=== PATIENT | female | born 1935 | race Caucasian/White ===

== ENCOUNTER 2018-03-26 10:23 | Inpatient (IN) ==
--- NOTE | 2018-03-26 10:32 | Emergency Department Note ---
ED Disposition Clinical Impression: Fall, HTN (hypertension), Femur fracture, right, Hip fracture, Wenckebach phenomenon, Renal insufficiency Disposition: Still a Patient Condition on Discharge: Fair Referrals: Rubén Winkler MD [Primary Care Provider] - - Critical Care Critical Care Time: No Attestation: On , the high probability of a clinically significant, sudden or life threatening deterioration of the following system(s) required my full and direct attention, intervention and personal management. The time I documented below is in addition to time spent performing reported procedures but includes the following listed in this critical care notation. Medical Decision Making - Shahab Inquiry Pt receiving controlled substance: No Shahab was queried for this patient: No Vital Signs: 03/26/18 10:25 03/26/18 11:54 Temperature 98.4 F Temperature Source Oral Pulse Rate [Right Radial] 58 L 67 Respiratory Rate 16 20 Blood Pressure [Right Arm] 146/82 177/63 Blood Pressure Mean [Right Arm] 103 101 Blood Pressure Source [Right Arm] Automatic Cuff Automatic Cuff Blood Pressure Position [Right Arm] Supine Supine 02 Sat by Pulse Oximetry 95 99 Oxygen Delivery Method Room Air Room Air - Lab Data Lab Results 03/26/18 10:15: WBC 8.2, RBC 3.92 L, Hgb 12.0 L, Hct 37.3, MCV 95.1, MCH 30.6, MCHC 32.2, RDW 12.7, Plt Count 196, MPV 11.9 H, Neut % (Auto) 53.0, Lymph % ( Auto) 37.5, [place] % (Auto) 6.6, Eos % (Auto) 2.0, Baso % (Auto) 1.0, Neut # (Auto ) 4.3, Lymph # (Auto) 3.1, [place] # (Auto) 0.5, Eos # (Auto) 0.2, Baso # (Auto) 0.1 03/26/18 10:15: PT 10.7, INR 0.99, APTT 22.2 L 03/26/18 10:15: Sodium 141, Potassium 3.1 L, Chloride 103, Carbon Dioxide 31, Anion Gap 10.1, BUN 27 H, Creatinine 1.25 H, Estimated Creat Clear 36, Estimated GFR 41 L, Est GFR ( Amer) 49 L, Glucose 166 H, Calcium 9.0, Total Bilirubin 0.5, AST 31, ALT 33, Alkaline Phosphatase 111, Total Protein 6.7 , Albumin 2.9 L, Globulin 3.8 H, Albumin/Globulin Ratio 0.8 L 03/26/18 11:55: Urine Color Yellow, Urine Appearance Clear, Urine pH 6.5, Ur Specific [place] 1.020, Urine Protein 2+, Urine Glucose (UA) Negative, Urine Ketones Negative, Urine Blood Trace-i, Urine Nitrate Negative, Urine Bilirubin Negative, Urine Urobilinogen 0.2, Ur Leukocyte Esterase Negative, Urine RBC None , Urine WBC Occasional, Ur Squamous Epith Cells 3-5, Urine Bacteria Trace, Urine Mucus 1+ Result diagrams: 03/26/18 10:15 03/26/18 10:15 Orders (Tests/Meds): ED MEDICATIONS Generic Name Dose Route Start Last Admin Trade Name Freq PRN Reason Stop Dose Admin Sodium Chloride 1,000 mls @ 999 mls/hr 03/26/18 12:30 Sod Chlor 0.9% 1000ml Bag IV 03/26/18 13:30 .Q1H1M JUDY Discontinued Medications Generic Name Dose Route Start Last Admin Trade Name Freq PRN Reason Stop Dose Admin Sodium Chloride 500 mls @ 999 mls/hr 03/26/18 12:30 03/26/18 12:26 Sod Chlor 0.9% 1000ml Bag IV 03/26/18 13:00 Not Given .Q31M JUDY Potassium Chloride 20 meq 03/26/18 12:20 Klor-Con 20meq Tablet PO 03/26/18 12:21 ONCE ONE ORDERS Category Date Time Status EKG Request [ECG Request by /Tram] Stat Y 03/26/18 10:28 Ordered - Radiology Data #1 Image(s): Chest, Pelvis, Femur Image Reviewed: Yes I reviewed the patient's radiology image Preliminary Findings: Abnormal The patient x-ray shows right intertrochanteric and right femur fracture. Chest x-ray: Aortic calcification no acute findings. - ECG Data Tracing #1 Sinus rhythm 64/min with a Mobitz type AV block. I send a copy to Dr. Gayle dictionary editor for a second opnion. Medical Decision Narrative: 1140 discussed the EKG with Dr. Gayle product assembler who agreed with the computer reading of Wenckebach phenomena. [address] Norwood the orthopedic who was described in surgery and asked him to review x-rays, he will and reply back to me. i ATTEMPTED TO ASK DR ARECHIGA FOR AN OPNION BUT DR NORWOOD WAS LICENSED NURSING ASSISTANT. 1300 DR NORWOOD CALLED BACK AND HE WILL BE ABLE TO ATTNED TO HER NEEDS. 1305 i CALLED Peterson who accpted her Fall HPI - General Chief Complaint: PAIN Stated Complaint: Hip pain Time Seen by Provider: 03/26/18 10:25 - History of Present Illness HPI Narrative: 82 years old white female with multiple medical problems she was at home when she fell in the bathroom. She was able to use get up called the EMS upon arrival she had a right lower extremity deformity with palpable distal pulsation. It is suspicious of a right hip fracture. He was in pain she was given 4 mg of morphine in route. The patient is alert oriented 3 she provided history, she denies head neck or lower spine injury. Her main complaint is her right hip pain. MD complaint: fall Onset (ago): minute(s) (Less than 30 minutes prior to arrival.) Fall from: other (He fell from a sitting position in the bathroom.) Place fall occurred: home Loss of consciousness: none Prolonged down time: no Symptoms prior to fall: none Location of injury: buttocks Location of injury - extremities: Right: lower leg Severity: severe Quality: sharp Associated symptoms (after fall): denies - Related Data Home Medications Medication Instructions Recorded Confirmed Amlodipine Besylate [Norvasc 5mg 5 mg PO DAILY 03/26/18 03/26/18 tablet] Atorvastatin Calcium [Atorvastatin 80 mg PO HS 03/26/18 03/26/18 80mg Tab] Clopidogrel Bisulfate [Plavix 75mg 75 mg PO DAILY 03/26/18 03/26/18 Tab] Insulin NPH Hum/Reg Insulin Hm 20 unit SQ BID 03/26/18 03/26/18 [Novolin 70-30 100 Unit/ml Vial] Levothyroxine Sodium 1 mg PO DAILY 03/26/18 03/26/18 [Levothyroxine 75mcg (0.075mg) Tab] Lisinopril [Lisinopril 10mg Tab] 1 mg PO DAILY 03/26/18 03/26/18 Lisinopril/Hydrochlorothiazide 1 mg PO DAILY 03/26/18 03/26/18 [Lisinopril-Hctz 20-12.5 mg Tab] Allergies Allergy/AdvReac Type Severity Reaction Status Date / Time rosuvastatin [From CRESTOR] Allergy Mild Verified 03/26/18 10:33 [facility] History I have reviewed the patient's past medical history: Yes ROS Obtained: Yes All systems reviewed & no additional complaints Physical Exam - General General appearance: alert, in no apparent distress - Head Head exam: atraumatic, normocephalic, normal inspection - Eye Eye exam: Present: normal appearance, PERRL, EOMI. Absent: scleral icterus - ENT ENT exam: Present: normal exam, normal oropharynx, mucous membranes moist, TM's normal bilaterally, normal external ear exam - Neck Neck exam: Present: normal inspection, full ROM, trachea midline. Absent: tenderness, meningismus, lymphadenopathy - Chest Chest inspection: Present: normal inspection, symmetric chest wall rise. Absent : tenderness - Respiratory Respiratory exam: Present: normal lung sounds bilaterally. Absent: respiratory distress - Cardiovascular Cardiovascular exam: Present: regular rate, normal rhythm. Absent: JVD - Abdominal Exam Abdominal exam: Present: soft, normal bowel sounds, other (Stable pelvis without no pulsating masses. Palpable femoral artery bilaterally.). Absent: distention, tenderness, guarding, rebound, rigidity - External exam: Present: normal external exam - Extremities Exam Extremities exam: Present: tenderness (Tenderness over the right hip joint, with external rotation and abduction deformity, palpable femoral and dorsalis pedis arteries. ), normal capillary refill - Back Exam Back exam: Present: normal inspection, other (No lumbar spine tenderness.). Absent: tenderness - Neurological Exam Neurological exam: Present: alert, oriented X3, CN II-XII intact, motor sensory deficit, reflexes normal - Psychiatric Psychiatric exam: Present: normal affect, normal mood, other (Looks in no acute distress. ) - Skin Skin exam: Present: dry, intact, pallor (The patient has generalized pallor and bilateral cool extremities, palpable dorsalis pedis pulsation.) - Lymphatic Lymphatic Findings: no adenopathy
[2018-03-26 10:50] LABS: Basophils # 0.1 K/mm3 (0-0.2); Eosinophils # 0.2 K/mm3 (0.0-0.4); Hematocrit 37.3 % (37.0-47.0); Lymphocytes # 3.1 K/mm3 (0.7-4.5); Lymphocytes % 37.5 K/mm3 (10-50); Mean Corpuscular HGB Conc 32.2 g/dL (31.8-35.4); Mean Corpuscular Hemoglobin 30.6 pg (27.0-31.2); Mean Corpuscular Volume 95.1 fl (81-99); Mean Platelet Volume 11.9 fl (7.4-10.4); Monocytes # 0.5 K/mm3 (0.1-1.0); Monocytes % 6.6 % (1.7-9.3); Neutrophils # 4.3 K/mm3 (1.8-7.8); Platelet Count 196 K/mm3 (142-424); Red Blood Count 3.92 M/mm3 (4.20-5.40); Red Cell Distribution Width 12.7 % (11.5-17.5); White Blood Count 8.2 K/mm3 (4.8-10.8)
[2018-03-26 11:04] LABS: Activated Partial Thrombo Time 22.2 seconds (23.6-34.0); INR 0.99 (0.9-1.1); Prothrombin Time 10.7 seconds (9.4-11.8)
[2018-03-26 11:08] LABS: Albumin Level 2.9 gm/dL (3.4-5.0); Albumin/Globulin Ratio 0.8 (1.1-1.8); Anion Gap 10.1 mEq/L (5-15); Bilirubin,Total 0.5 mg/dL (0.2-1.0); Globulin 3.8 gm/dl (1.3-3.2); Potassium 3.1 mmoL/L (3.5-5.1); Total Protein,Serum 6.7 gm/dL (6.4-8.2)
[2018-03-26 12:02] LABS: Microscopic, Urine URINE MICROSCOPIC (MICROSCOPIC)
[2018-03-26 12:04] LABS: Appearance,Urine CLEAR (Clear); Bilirubin,Urine Negative (Negative); Blood, Urine TRACE-I (Negative); Color,Urine YELLOW (Yellow); Glucose,Urine (UA) Negative (Negative); Ketones,Urine Negative (Negative); Leukocyte Esterase,Urine Negative (Negative); PH,Urine 6.5 (5.0-8.5); Protein,Urine 2+ (Negative); Urobilinogen,Urine 0.2 EU/dl (0.2)
[2018-03-26 12:17] LABS: Bacteria,Urine Trace /lpf; WBC,Urine Occasional #/hpf (0-3)
[2018-03-26 12:18] LABS: Mucus,Urine 1+ /lpf
--- NOTE | 2018-03-26 14:00 | History & Physical Report ---
*Admission Date: 03/26/18 <Edna Virgen 03/26/18 14:08> *Chief complaint: right hip pain <ParamEdna 03/26/18 14:08> *History of present illness: Ms. Bey is an 82 years old white female with a history of type 2 diabetes mellitus, hypertension, hyperlipidemia, hypothyroidism, colon cancer, acute ischemic stroke April 2017, and CKD stage III who was at home when she fell in the bathroom. She was able to call her daughter who notified EMS. Upon presentation to the hospital she was noted to have a right lower extremity deformity with palpable distal pulsation suspicious for right hip fracture. She was given 4mg of Morphine for pain in route. The patient was alert oriented and provided history. She denied head , neck, and lower spine pain. Her main complaint was her right hip pain. Evaluation in the ER confirmed a right hip fracture and she was admitted to [facility] with orthopedic consultation. At the time of this exam patient has been placed in 5# Delgadillo's traction. She is comfortable when still and is somewhat drowsy. <ParamEdna 03/26/18 21:31> [facility] History Medical History: Reports:: Cancer (colon), Cerebrovascular Accident, Diabetes Mellitus Type 2, Hypertension <ParamEdna 03/26/18 14:08> Other Medical History: Reports: Hypothyroidism <VirgenEdna 03/26/18 14:08 > Comment: Right hemicolectomy 08/02/2011 <ParamEdna 03/26/18 14:08> - *Social History Educational Level: Completed High School <ParamEdna 03/26/18 14:08> Smoking Status: Never smoker <ParamEdna 03/26/18 14:08> Alcohol Intake: never <ParamEdna 03/26/18 14:08> - Psychiatric History Expresses thoughts of harming self/others: None <Edna Virgen 03/26/18 14: 08> Suicide Plan Description: No Plan <Edna Virgen 03/26/18 14:08> *Family Hx:: Diabetes <Edna Virgen 03/26/18 14:08> Review of Systems - ENT Denies ear pain, Denies sore throat <Edna Virgen 03/26/18 21:31> - *Cardiovascular Denies chest pain <Edna Virgen - 03/26/18 21:31> - *Respiratory Denies cough, Denies shortness of breath <Edna Virgen - 03/26/18 21:31> - *Musculoskeletal Reports joint pain, Denies back pain, Denies muscle weakness <Edna Virgen - 03/26/18 21:31> - *Neurologic Denies dizziness, Denies fainting <Edna Virgen - 03/26/18 21:31> Comments: sometimes is unsteady on her feet <Edna Virgen - 03/26/18 21:31> Meds Home Medications Medication Instructions Recorded Confirmed Type Amlodipine Besylate [Norvasc 5mg 5 mg PO DAILY 03/26/18 03/26/18 History tablet] Atorvastatin Calcium [Atorvastatin 80 mg PO HS 03/26/18 03/26/18 History 80mg Tab] Clopidogrel Bisulfate [Plavix 75mg 75 mg PO DAILY 03/26/18 03/26/18 History Tab] Insulin NPH Hum/Reg Insulin Hm 20 unit SQ BID 03/26/18 03/26/18 History [Novolin 70-30 100 Unit/ml Vial] Levothyroxine Sodium 1 mg PO DAILY 03/26/18 03/26/18 History [Levothyroxine 75mcg (0.075mg) Tab] Lisinopril [Lisinopril 10mg Tab] 1 mg PO DAILY 03/26/18 03/26/18 History Lisinopril/Hydrochlorothiazide 1 mg PO DAILY 03/26/18 03/26/18 History [Lisinopril-Hctz 20-12.5 mg Tab] <Rubén Winkler - 03/27/18 08:51> Allergies Allergy/AdvReac Type Severity Reaction Status Date / Time rosuvastatin [From CRESTOR] Allergy Mild Verified 03/26/18 10:33 <Rubén Winkler - 03/27/18 08:51> Exam Vital signs and Labs for Last 24 Hours: Temp Pulse Resp BP Pulse Ox 97.9 F 95 H 16 156/55 96 03/27/18 07:53 03/27/18 07:53 03/27/18 07:53 03/27/18 07:53 03/27/18 07:53 Laboratory Results - last 24 hr 03/26/18 10:15: WBC 8.2, RBC 3.92 L, Hgb 12.0 L, Hct 37.3, MCV 95.1, MCH 30.6, MCHC 32.2, RDW 12.7, Plt Count 196, MPV 11.9 H, Neut % (Auto) 53.0, Lymph % ( Auto) 37.5, [place] % (Auto) 6.6, Eos % (Auto) 2.0, Baso % (Auto) 1.0, Neut # (Auto ) 4.3, Lymph # (Auto) 3.1, [place] # (Auto) 0.5, Eos # (Auto) 0.2, Baso # (Auto) 0.1 03/26/18 10:15: PT 10.7, INR 0.99, APTT 22.2 L 03/26/18 10:15: Sodium 141, Potassium 3.1 L, Chloride 103, Carbon Dioxide 31, Anion Gap 10.1, BUN 27 H, Creatinine 1.25 H, Estimated Creat Clear 36, Estimated GFR 41 L, Est GFR ( Amer) 49 L, Glucose 166 H, Calcium 9.0, Total Bilirubin 0.5, AST 31, ALT 33, Alkaline Phosphatase 111, Total Protein 6.7 , Albumin 2.9 L, Globulin 3.8 H, Albumin/Globulin Ratio 0.8 L 03/26/18 11:55: Urine Color Yellow, Urine Appearance Clear, Urine pH 6.5, Ur Specific [place] 1.020, Urine Protein 2+, Urine Glucose (UA) Negative, Urine Ketones Negative, Urine Blood Trace-i, Urine Nitrate Negative, Urine Bilirubin Negative, Urine Urobilinogen 0.2, Ur Leukocyte Esterase Negative, Urine RBC None , Urine WBC Occasional, Ur Squamous Epith Cells 3-5, Urine Bacteria Trace, Urine Mucus 1+ 03/26/18 16:40: Blood Type O Positive, Antibody Screen Negative 03/26/18 17:14: POC Glucose 230 H 03/26/18 20:26: POC Glucose 301 H* 03/27/18 06:00: WBC 13.2 H D, RBC 3.02 L, Hgb 9.5 L D, Hct 29.5 L, MCV 97.8, MCH 31.1, MCHC 31.8, RDW 12.8, Plt Count 153, MPV 12.1 H, Neut % (Auto) 85.1 H, Lymph % (Auto) 9.5 L, [place] % (Auto) 5.3, Eos % (Auto) 0.0 L, Baso % (Auto) 0.1, Neut # (Auto) 11.3 H, Lymph # (Auto) 1.3, [place] # (Auto) 0.7, Eos # (Auto) 0.0, Baso # (Auto) 0.0, Total Counted 100, Neutrophils % (Manual) 87 H, Lymphocytes % (Manual) 9 L, Monocytes % (Manual) 4, Platelet Estimate Normal, RBC Morphology Not Reportable 03/27/18 06:00: Sodium 140, Potassium 4.9 D, Chloride 105, Carbon Dioxide 27, Anion Gap 12.9, BUN 37 H D, Creatinine 1.23 H, Estimated Creat Clear 41, Estimated GFR 42 L, Est GFR ( Amer) 50 L, Glucose 354 H D, Magnesium 1.5 03/27/18 06:05: POC Glucose 315 H* <Rubén Winkler - 03/27/18 08:51> Temp Pulse Resp BP Pulse Ox 97.9 F 58 L 16 159/57 99 03/26/18 13:29 03/26/18 13:29 03/26/18 13:29 03/26/18 13:29 03/26/18 11:54 Laboratory Results - last 24 hr 03/26/18 10:15: WBC 8.2, RBC 3.92 L, Hgb 12.0 L, Hct 37.3, MCV 95.1, MCH 30.6, MCHC 32.2, RDW 12.7, Plt Count 196, MPV 11.9 H, Neut % (Auto) 53.0, Lymph % ( Auto) 37.5, [place] % (Auto) 6.6, Eos % (Auto) 2.0, Baso % (Auto) 1.0, Neut # (Auto ) 4.3, Lymph # (Auto) 3.1, [place] # (Auto) 0.5, Eos # (Auto) 0.2, Baso # (Auto) 0.1 03/26/18 10:15: PT 10.7, INR 0.99, APTT 22.2 L 03/26/18 10:15: Sodium 141, Potassium 3.1 L, Chloride 103, Carbon Dioxide 31, Anion Gap 10.1, BUN 27 H, Creatinine 1.25 H, Estimated Creat Clear 36, Estimated GFR 41 L, Est GFR ( Amer) 49 L, Glucose 166 H, Calcium 9.0, Total Bilirubin 0.5, AST 31, ALT 33, Alkaline Phosphatase 111, Total Protein 6.7 , Albumin 2.9 L, Globulin 3.8 H, Albumin/Globulin Ratio 0.8 L 03/26/18 11:55: Urine Color Yellow, Urine Appearance Clear, Urine pH 6.5, Ur Specific [place] 1.020, Urine Protein 2+, Urine Glucose (UA) Negative, Urine Ketones Negative, Urine Blood Trace-i, Urine Nitrate Negative, Urine Bilirubin Negative, Urine Urobilinogen 0.2, Ur Leukocyte Esterase Negative, Urine RBC None , Urine WBC Occasional, Ur Squamous Epith Cells 3-5, Urine Bacteria Trace, Urine Mucus 1+ <Edna Virgen 03/26/18 21:31> I & O for Last 24 hours: Intake & Output 03/24/18 03/25/18 03/26/18 03/27/18 11:59 11:59 11:59 11:59 Intake Total 1369 / 1369 Output Total 525 / 525 Balance 844 / 844 Weight 150 lb 168 lb 2 oz <Rubén Winkler - 03/27/18 08:51> Intake & Output 03/24/18 03/25/18 03/26/18 03/27/18 11:59 11:59 11:59 11:59 Weight 150 lb <Edna Virgen 03/26/18 14:08> Radiology Reports for the Last 24 Hours: 03/26/2018 x-ray of right hip IMPRESSION: Severely comminuted right intertrochanteric displaced hip fracture 03/26/2018 x-ray of pelvis IMPRESSION: Severely comminuted displaced right intertrochanteric hip fracture 03/26/2018 chest x-ray IMPRESSION: Negative chest, no acute finding <Edna Virgen 03/26/18 14:08> - Constitutional no acute distress <Edna Virgen 03/26/18 21:31> - *Routine HEENT Exam Head: Present: normocephalic <Edna Virgen 05/01/18 21:31> Eye: Present: PERRL. Absent: conjunctival icterus, scleral injection <Virgen ,[facility] 03/26/18 21:31> ENT: Present: mucous membranes moist, oropharynx clear <Virgen,[facility] 21:31> - *Routine Neck Exam Absent: lymphadenopathy, thyromegaly <Virgen,[facility] 03/26/18 21:31> Comments: carotids with radiating murmur [facility] 03/26/18 21:31> - *Routine Respiratory Exam Present: CTA bilaterally <[facility] 03/26/18 21:31> - *Routine Cardiovascular Exam Present: RRR, murmur <[facility] 03/26/18 21:31> - *Routine Abdominal Exam Present: soft, normoactive bowel sounds. Absent: tenderness, distended < [facility] 03/26/18 21:31> - *Routine Extremities Exam Present: pulses intact. Absent: edema, calf tenderness <[facility] 03/26 21:31> Comments: right leg in Delgadillo's traction [facility] 03/[facility] 21:31> - *Routine Neurological Exam Present: alert [facility] 03/26/18 21:31> oriented; drowsy <[facility] 03/26/18 21:31> H&P: Result - Labs Labs: Short CBC 03/26/18 03/27/18 Range/Units 10:15 06:00 WBC 8.2 13.2 H D (4.8-10.8) K/mm3 Hgb 12.0 L 9.5 L D (12.2-16.2) g/dL Hct 37.3 29.5 L (37.0-47.0) % Plt Count 196 153 (142-424) K/mm3 BMP 03/26/18 03/27/18 10:15 06:00 Sodium 141 140 Potassium 3.1 L 4.9 D Chloride 103 105 Carbon Dioxide 31 27 BUN 27 H 37 H D Creatinine 1.25 H 1.23 H Glucose 166 H 354 H D Calcium 9.0 Liver Function 03/26/18 Range/Units 10:15 Total Bilirubin 0.5 (0.2-1.0) mg/dL AST 31 (15-37) U/L ALT 33 (12-78) U/L Alkaline Phosphatase 111 (46-116) U/L Albumin 2.9 L (3.4-5.0) gm/dL Urine 03/26/18 Range/Units 11:55 Urine Color Yellow (Yellow) Urine Appearance Clear (Clear) Urine pH 6.5 (5.0-8.5) Ur Specific [place] 1.020 (1.005-1.030) Urine Protein 2+ (Negative) Urine Glucose (UA) Negative (Negative) <Rubén Winkler - 03/27/18 08:51> Short CBC 03/26/18 Range/Units 10:15 WBC 8.2 (4.8-10.8) K/mm3 Hgb 12.0 L (12.2-16.2) g/dL Hct 37.3 (37.0-47.0) % Plt Count 196 (142-424) K/mm3 BMP 03/26/18 10:15 Sodium 141 Potassium 3.1 L Chloride 103 Carbon Dioxide 31 BUN 27 H Creatinine 1.25 H Glucose 166 H Calcium 9.0 Liver Function 03/26/18 Range/Units 10:15 Total Bilirubin 0.5 (0.2-1.0) mg/dL AST 31 (15-37) U/L ALT 33 (12-78) U/L Alkaline Phosphatase 111 (46-116) U/L Albumin 2.9 L (3.4-5.0) gm/dL Urine 03/26/18 Range/Units 11:55 Urine Color Yellow (Yellow) Urine Appearance Clear (Clear) Urine pH 6.5 (5.0-8.5) Ur Specific [place] 1.020 (1.005-1.030) Urine Protein 2+ (Negative) Urine Glucose (UA) Negative (Negative) <Edna Virgen - 03/26/18 14:08> Assessment and Plan (1) Heart murmur Current visit: Yes Status: Acute Category: Medical Code(s): R01.1 - Cardiac murmur, unspecified <Edna Virgen - 03/26/18 21:07> (1) Closed right hip fracture Current visit: Yes Status: Acute Category: Medical Code(s): S72.001A - Fracture of unspecified part of neck of right femur, initial encounter for closed fracture (2) Fall Current visit: Yes Status: Acute Category: Medical Code(s): W19.XXXA - Unspecified fall, initial encounter (3) Heart murmur Current visit: Yes Status: Chronic Category: Medical Code(s): R01.1 - Cardiac murmur, unspecified (4) HTN (hypertension) Current visit: Yes Status: Chronic Category: Medical Code(s): I10 - Essential (primary) hypertension (5) Renal insufficiency Current visit: Yes Status: Chronic Category: Medical Code(s): N28.9 - Disorder of kidney and ureter, unspecified (6) Type 2 diabetes mellitus Current visit: Yes Status: Chronic Category: Medical Code(s): E11.9 - Type 2 diabetes mellitus without complications <Rubén Winkler - 03/27/18 08:51> - Assessment and plan all Dx Assessment and Plan for all problems:: Saw patient on day of admission, agree with above note. <Rubén Winkler - 03/27/18 08:51> Plan is for surgery tomorrow; will start sliding scale insulin; IVF with KCL have been started; pain management; ECHO <Edna Virgen - 03/26/18 21:31>
--- NOTE | 2018-03-26 15:00 | Consult Report ---
*Admission Date: 03/26/18 *Chief complaint: Pain right hip following a fall *History of present illness: Ms. Bey is a pleasant 82 years old white female admitted to inpatient services under Dr. Winkler earlier today with a diagnosis of right proximal femur fracture. She is lying in bed and appears comfortable. Her family including her daughter are with her in the room. She is giving a history of injury to her right hip following a fall in the bathroom at her home this morning. Following the injury she was able to get up and called EMS; she was brought to the ER where evaluation including x-rays showed a comminuted, displaced intertrochanteric fracture of the right femur with subtrochanteric extension. She was admitted for stabilization and management of the same. She denies any dizziness, headache, chest or neck pain. She also denies loss of consciousness, chest pain and shortness of breath. She lives by herself and is fairly mobile and independent. No history of any previous fractures or surgery. She has past history of type 2 diabetes mellitus, hypertension, hyperlipidemia, hypothyroidism, colon cancer, acute ischemic stroke April 2017, and CKD stage III. I reviewed her past medical history, home medication, social history, family history, lab results and allergies. Review of Systems - Review of Systems Review of systems:: pertinent systems reviewed and negative unless documented below [facility] History I have reviewed the patient's past medical history: Yes Medical History: Reports:: Cancer (colon), Cerebrovascular Accident, Diabetes Mellitus Type 2, Hypertension Other Medical History: Reports: Hypothyroidism - *Social History Educational Level: Completed High School Smoking Status: Never smoker Alcohol Intake: never - Psychiatric History Expresses thoughts of harming self/others: None Suicide Plan Description: No Plan *Family Hx:: Diabetes Meds Home Medications Medication Instructions Recorded Confirmed Type Amlodipine Besylate [Norvasc 5mg 5 mg PO DAILY 03/26/18 03/26/18 History tablet] Atorvastatin Calcium [Atorvastatin 80 mg PO HS 03/26/18 03/26/18 History 80mg Tab] Clopidogrel Bisulfate [Plavix 75mg 75 mg PO DAILY 03/26/18 03/26/18 History Tab] Insulin NPH Hum/Reg Insulin Hm 20 unit SQ BID 03/26/18 03/26/18 History [Novolin 70-30 100 Unit/ml Vial] Levothyroxine Sodium 75 mg PO DAILY 03/26/18 03/27/18 History [Levothyroxine 75mcg (0.075mg) Tab] Lisinopril [Lisinopril 10mg Tab] 10 mg PO DAILY 03/26/18 03/27/18 History Lisinopril/Hydrochlorothiazide 12.5 - 20 mg PO DAILY 03/26/18 03/27/18 History [Lisinopril-Hctz 20-12.5 mg Tab] Allergies Allergy/AdvReac Type Severity Reaction Status Date / Time rosuvastatin [From CRESTOR] Allergy Mild Verified 03/26/18 10:33 Exam Vital signs and Labs for Last 24 Hours: Temp Pulse Resp BP Pulse Ox 98.3 F 70 18 161/72 100 03/26/18 14:24 03/26/18 14:24 03/26/18 14:24 03/26/18 14:24 03/26/18 14:24 Laboratory Results - last 24 hr 03/26/18 10:15: WBC 8.2, RBC 3.92 L, Hgb 12.0 L, Hct 37.3, MCV 95.1, MCH 30.6, MCHC 32.2, RDW 12.7, Plt Count 196, MPV 11.9 H, Neut % (Auto) 53.0, Lymph % ( Auto) 37.5, [place] % (Auto) 6.6, Eos % (Auto) 2.0, Baso % (Auto) 1.0, Neut # (Auto ) 4.3, Lymph # (Auto) 3.1, [place] # (Auto) 0.5, Eos # (Auto) 0.2, Baso # (Auto) 0.1 03/26/18 10:15: PT 10.7, INR 0.99, APTT 22.2 L 03/26/18 10:15: Sodium 141, Potassium 3.1 L, Chloride 103, Carbon Dioxide 31, Anion Gap 10.1, BUN 27 H, Creatinine 1.25 H, Estimated Creat Clear 36, Estimated GFR 41 L, Est GFR ( Amer) 49 L, Glucose 166 H, Calcium 9.0, Total Bilirubin 0.5, AST 31, ALT 33, Alkaline Phosphatase 111, Total Protein 6.7 , Albumin 2.9 L, Globulin 3.8 H, Albumin/Globulin Ratio 0.8 L 03/26/18 11:55: Urine Color Yellow, Urine Appearance Clear, Urine pH 6.5, Ur Specific [place] 1.020, Urine Protein 2+, Urine Glucose (UA) Negative, Urine Ketones Negative, Urine Blood Trace-i, Urine Nitrate Negative, Urine Bilirubin Negative, Urine Urobilinogen 0.2, Ur Leukocyte Esterase Negative, Urine RBC None , Urine WBC Occasional, Ur Squamous Epith Cells 3-5, Urine Bacteria Trace, Urine Mucus 1+ I & O for Last 24 hours: Intake & Output 03/24/18 03/25/18 03/26/18 03/27/18 11:59 11:59 11:59 11:59 Weight 150 lb 168 lb 2 oz - Constitutional mild distress - *Routine HEENT Exam Head: Present: normocephalic, atraumatic Eye: Present: EOMI, PERRL ENT: Present: mucous membranes moist - *Routine Neck Exam Present: supple, full ROM, trachea midline - *Routine Respiratory Exam Present: CTA bilaterally - *Routine Cardiovascular Exam Present: RRR, Normal S1, Normal S2 - *Routine Abdominal Exam Present: soft, normoactive bowel sounds - *Routine Extremities Exam Comments: On examination of lower extremities, the right leg is in Delgadillo's traction; there is shortening of the right leg and the foot is externally rotated. On examination of the right hip, the skin is normal. No rashes or lesions noted. She is tender over the right hip and the proximal third of the femur. Any attempted movements of the right hip are painful. She is nontender over the knee joint. Her calf is soft and nontender. Dorsalis pedis and posterior tibial pulses are 1+ bilaterally. Sensation is grossly intact light touch throughout. She has good range of foot, ankle and toe movements. Examination of her left hip is unremarkable. Imaging: X-rays of her pelvis AP view, right hip and right femur AP and lateral views reviewed along with radiologist report. The x-rays show a comminuted, displaced, unstable intertrochanteric fracture with subtrochanteric extension of the right proximal femur. Hip joint space is fairly well preserved. Her distal femur appears normal except for a degree of osteopenia. No evidence of any lytic or blastic lesions noted. - *Routine Skin Exam Present: intact, warm, normal turgor - *Routine Neurological Exam Present: alert, oriented X3, CN II-XII intact, moving all extremities, normal speech - Routine Psychiatric Exam Present: normal affect, cooperative, good insight, good judgment Results - Labs Result Diagrams: 03/27/18 06:00 03/27/18 06:00 Labs: Abnormal lab results 03/26/18 03/26/18 03/26/18 Range/Units 10:15 10:15 10:15 RBC 3.92 L (4.20-5.40) M/mm3 Hgb 12.0 L (12.2-16.2) g/dL MPV 11.9 H (7.4-10.4) fl APTT 22.2 L (23.6-34.0) seconds Potassium 3.1 L (3.5-5.1) mmoL/L BUN 27 H (7-18) mg/dL Creatinine 1.25 H (0.55-1.02) mg/dL Estimated GFR 41 L (>60) ml/min Est GFR ( Amer) 49 L (>60) ML/MIN Glucose 166 H (74-106) mg/dL Albumin 2.9 L (3.4-5.0) gm/dL Globulin 3.8 H (1.3-3.2) gm/dl Albumin/Globulin Ratio 0.8 L (1.1-1.8) H & H 03/26/18 Range/Units 10:15 Hgb 12.0 L (12.2-16.2) g/dL Hct 37.3 (37.0-47.0) % Coagulation 03/26/18 Range/Units 10:15 INR 0.99 (0.9-1.1) All other labs normal. Assessment and Plan (1) Femur fracture, right Current visit: Yes Status: Acute Qualifiers: Encounter type: initial encounter Femur location: intertrochanteric Fracture type: closed Fracture alignment: displaced Qualified Code(s): S72.141A - Displaced intertrochanteric fracture of right femur, initial encounter for closed fracture Category: Medical Code(s): S72.91XA - Unspecified fracture of right femur, initial encounter for closed fracture I reviewed the clinical and imaging findings with the patient and her family. I have discussed the diagnosis and management options in detail including both nonsurgical and surgical. I have recommended surgical remediation in the form of open reduction and cerclage wiring followed by a femoral nailing (cephalo- medullary nailing). I explained the procedure, risks and benefits, alternatives and the expected postoperative course and outcome. I explained to the patient the type of the fracture and the proposed surgical procedure using copies of the x-rays, pictures from the Internet and drawings. The complications discussed include but are not limited to- infection, bleeding, injury to nerves and blood vessels, DVT, PE, screw cut-out/implant failure, loss of fixation, nonunion, malunion/malrotation, osteonecrosis of the femoral head, femoral shaft fracture, painful hardware, heterotopic ossification, stiffness, weakness , incomplete relief of pain, incomplete return of function or motion and the likely need for further surgery in future, and anesthetic/medical complications including heart attack, stroke, transfusion reaction or . We discussed how any of these events can be devastating. I've explained that the patient is at a significant surgical risk due to her age, cardiac and other comorbidities, and fragility of the bones. Patient seemed to understand and accept these risks. We have discussed nonsurgical alternatives as well. The nonoperative management would essentially consist of prolonged bed rest and traction (skeletal/skin) in bed and pain medication and has exceptionally poor outcome. This could result in nonunion and malunion of the fracture and almost certainly, the patient has a very high risk of decubitus ulcers, UTI, respiratory tract infections, DVT/PE and other complications from being bedridden. I have explained to her that the standard of care for this sort of injuries is surgical throughout the country unless the patient is very ill for surgical management. We also discussed the postoperative course including the rehab and physical therapy required. She lives by herself and likely will need placement in a prison facility for a short time for rehab after surgery. All her questions were answered and she verbalized a good understanding. We will await medical clearance by Dr. Winkler's team and possibly cardiac clearance if needed. The limb was marked appropriately and initialed by me. I have recommended- Type and screen Nothing by mouth after midnight Continue IV fluids Analgesia as needed Consent patient for a cephalo-medullary nailing RIGHT femur ". Order 2 g of IV Ancef for preoperative prophylaxis to start half an hour before surgery I am planning to take her for surgery at the earliest opportunity tomorrow, if cleared for surgery. Continue medical management as per Dr. Winkler. Thank you for the opportunity to take part in the care of this very pleasant patient.
[2018-03-27 06:42] LABS: Basophils % 0.1 % (0.1-2.0); Hematocrit 29.5 % (37.0-47.0); Lymphocytes # 1.3 K/mm3 (0.7-4.5); Lymphocytes % 9.5 K/mm3 (10-50); Mean Corpuscular HGB Conc 31.8 g/dL (31.8-35.4); Mean Corpuscular Hemoglobin 31.1 pg (27.0-31.2); Mean Corpuscular Volume 97.8 fl (81-99); Mean Platelet Volume 12.1 fl (7.4-10.4); Monocytes # 0.7 K/mm3 (0.1-1.0); Monocytes % 5.3 % (1.7-9.3); Neutrophils # 11.3 K/mm3 (1.8-7.8); Neutrophils % 85.1 % (37.0-80.0); Platelet Count 153 K/mm3 (142-424); Red Blood Count 3.02 M/mm3 (4.20-5.40); Red Cell Distribution Width 12.8 % (11.5-17.5); White Blood Count 13.2 K/mm3 (4.8-10.8)
[2018-03-27 06:47] LABS: Anion Gap 12.9 mEq/L (5-15); Potassium 4.9 mmoL/L (3.5-5.1)
[2018-03-27 06:48] LABS: Hemoglobin 9.5 g/dL (12.2-16.2)
[2018-03-27 07:48] LABS: Lymphocytes % 9 % (10-50); Monocytes % 4 % (2-9); Neutrophils % 87 % (42-76); Total Cells Counted 100
--- NOTE | 2018-03-27 07:55 | Pharmacy Consult Notes ---
[facility] Pharmacy VTE Monitoring - Patient Demographics Admission date: 03/26/18 Report Date: 03/27/18 Time: 07:54 Allergies/Adverse Reactions: Patient Allergies rosuvastatin [From CRESTOR] Allergy (Mild, Verified 03/26/18 10:33) Height: 1.7 m Weight: 76.26 kg Patient Problems: Current Active Problems Fall (Acute) HTN (hypertension) (Acute) Femur fracture, right (Acute) Hip fracture (Acute) Wenckebach phenomenon (Acute) Renal insufficiency (Acute) Heart murmur (Acute) - VTE Risk Labs: VTE Related Lab Results Hgb 9.5 g/dL (12.2-16.2) L D 03/27/18 06:00 Hct 29.5 % (37.0-47.0) L 03/27/18 06:00 Plt Count 153 K/mm3 (142-424) 03/27/18 06:00 PT 10.7 seconds (9.4-11.8) 03/26/18 10:15 INR 0.99 (0.9-1.1) 03/26/18 10:15 APTT 22.2 seconds (23.6-34.0) L 03/26/18 10:15 BUN 37 mg/dL (7-18) H D 03/27/18 06:00 Creatinine 1.23 mg/dL (0.55-1.02) H 03/27/18 06:00 Estimated Creat Clear 41 mL/min (0-300) 03/27/18 06:00 VTE Score: 2 VTE Risk Level: Very Low Risk Clinical Trial Participant: No - Prophylaxis VTE Prophylaxis Ordered?: Yes Types of VTE Prophylaxis: TEDS Knee High
--- NOTE | 2018-03-27 08:13 | Progress Note ---
<Charo Avery - Last Filed: 03/27/18 08:10> Internal Medicine - PN: Subj *Date: 03/27/18 *Time: 08:10 Interval history: Patient states she was nauseated but received some antiemetics and feels better at this time. She states her pain is minimal. She was able to sleep last night. Exam Vital signs and Labs for Last 24 Hours: Temp Pulse Resp BP Pulse Ox 97.9 F 95 H 16 156/55 96 03/27/18 07:53 03/27/18 07:53 03/27/18 07:53 03/27/18 07:53 03/27/18 07:53 Laboratory Results - last 24 hr 03/26/18 10:15: WBC 8.2, RBC 3.92 L, Hgb 12.0 L, Hct 37.3, MCV 95.1, MCH 30.6, MCHC 32.2, RDW 12.7, Plt Count 196, MPV 11.9 H, Neut % (Auto) 53.0, Lymph % ( Auto) 37.5, [place] % (Auto) 6.6, Eos % (Auto) 2.0, Baso % (Auto) 1.0, Neut # (Auto ) 4.3, Lymph # (Auto) 3.1, [place] # (Auto) 0.5, Eos # (Auto) 0.2, Baso # (Auto) 0.1 03/26/18 10:15: PT 10.7, INR 0.99, APTT 22.2 L 03/26/18 10:15: Sodium 141, Potassium 3.1 L, Chloride 103, Carbon Dioxide 31, Anion Gap 10.1, BUN 27 H, Creatinine 1.25 H, Estimated Creat Clear 36, Estimated GFR 41 L, Est GFR ( Amer) 49 L, Glucose 166 H, Calcium 9.0, Total Bilirubin 0.5, AST 31, ALT 33, Alkaline Phosphatase 111, Total Protein 6.7 , Albumin 2.9 L, Globulin 3.8 H, Albumin/Globulin Ratio 0.8 L 03/26/18 11:55: Urine Color Yellow, Urine Appearance Clear, Urine pH 6.5, Ur Specific [place] 1.020, Urine Protein 2+, Urine Glucose (UA) Negative, Urine Ketones Negative, Urine Blood Trace-i, Urine Nitrate Negative, Urine Bilirubin Negative, Urine Urobilinogen 0.2, Ur Leukocyte Esterase Negative, Urine RBC None , Urine WBC Occasional, Ur Squamous Epith Cells 3-5, Urine Bacteria Trace, Urine Mucus 1+ 03/26/18 16:40: Blood Type O Positive, Antibody Screen Negative 03/26/18 17:14: POC Glucose 230 H 03/26/18 20:26: POC Glucose 301 H* 03/27/18 06:00: WBC 13.2 H D, RBC 3.02 L, Hgb 9.5 L D, Hct 29.5 L, MCV 97.8, MCH 31.1, MCHC 31.8, RDW 12.8, Plt Count 153, MPV 12.1 H, Neut % (Auto) 85.1 H, Lymph % (Auto) 9.5 L, [place] % (Auto) 5.3, Eos % (Auto) 0.0 L, Baso % (Auto) 0.1, Neut # (Auto) 11.3 H, Lymph # (Auto) 1.3, [place] # (Auto) 0.7, Eos # (Auto) 0.0, Baso # (Auto) 0.0, Total Counted 100, Neutrophils % (Manual) 87 H, Lymphocytes % (Manual) 9 L, Monocytes % (Manual) 4, Platelet Estimate Normal, RBC Morphology Not Reportable 03/27/18 06:00: Sodium 140, Potassium 4.9 D, Chloride 105, Carbon Dioxide 27, Anion Gap 12.9, BUN 37 H D, Creatinine 1.23 H, Estimated Creat Clear 41, Estimated GFR 42 L, Est GFR ( Amer) 50 L, Glucose 354 H D, Magnesium 1.5 03/27/18 06:05: POC Glucose 315 H* I & O for Last 24 hours: Intake & Output 03/24/18 03/25/18 03/26/18 03/27/18 11:59 11:59 11:59 11:59 Intake Total 1369 / 1369 Output Total 525 / 525 Balance 844 / 844 Weight 150 lb 168 lb 2 oz - Constitutional no acute distress - *Routine Respiratory Exam Present: CTA bilaterally - *Routine Cardiovascular Exam Present: RRR - *Routine Abdominal Exam Present: soft, normoactive bowel sounds. Absent: tenderness - *Routine Extremities Exam Absent: edema Comments: Right leg in traction. Assessment and Plan (1) Closed right hip fracture Current visit: Yes Status: Acute Category: Medical Code(s): S72.001A - Fracture of unspecified part of neck of right femur, initial encounter for closed fracture (2) Fall Current visit: Yes Status: Acute Category: Medical Code(s): W19.XXXA - Unspecified fall, initial encounter (3) Heart murmur Current visit: Yes Status: Chronic Category: Medical Code(s): R01.1 - Cardiac murmur, unspecified (4) HTN (hypertension) Current visit: Yes Status: Chronic Category: Medical Code(s): I10 - Essential (primary) hypertension (5) Renal insufficiency Current visit: Yes Status: Chronic Category: Medical Code(s): N28.9 - Disorder of kidney and ureter, unspecified (6) Type 2 diabetes mellitus Current visit: Yes Status: Chronic Category: Medical Code(s): E11.9 - Type 2 diabetes mellitus without complications - Assessment and plan all Dx Assessment and Plan for all problems:: Patient is scheduled for surgery today at 12:30. <Rubén Winkler - Last Filed: 03/27/18 09:17> Internal Medicine - PN: Subj *Date: 03/27/18 *Time: 09:15 Exam Vital signs and Labs for Last 24 Hours: Temp Pulse Resp BP Pulse Ox 97.9 F 95 H 16 156/55 96 03/27/18 07:53 03/27/18 07:53 03/27/18 07:53 03/27/18 07:53 03/27/18 07:53 Laboratory Results - last 24 hr 03/26/18 10:15: WBC 8.2, RBC 3.92 L, Hgb 12.0 L, Hct 37.3, MCV 95.1, MCH 30.6, MCHC 32.2, RDW 12.7, Plt Count 196, MPV 11.9 H, Neut % (Auto) 53.0, Lymph % ( Auto) 37.5, [place] % (Auto) 6.6, Eos % (Auto) 2.0, Baso % (Auto) 1.0, Neut # (Auto ) 4.3, Lymph # (Auto) 3.1, [place] # (Auto) 0.5, Eos # (Auto) 0.2, Baso # (Auto) 0.1 03/26/18 10:15: PT 10.7, INR 0.99, APTT 22.2 L 03/26/18 10:15: Sodium 141, Potassium 3.1 L, Chloride 103, Carbon Dioxide 31, Anion Gap 10.1, BUN 27 H, Creatinine 1.25 H, Estimated Creat Clear 36, Estimated GFR 41 L, Est GFR ( Amer) 49 L, Glucose 166 H, Calcium 9.0, Total Bilirubin 0.5, AST 31, ALT 33, Alkaline Phosphatase 111, Total Protein 6.7 , Albumin 2.9 L, Globulin 3.8 H, Albumin/Globulin Ratio 0.8 L 03/26/18 11:55: Urine Color Yellow, Urine Appearance Clear, Urine pH 6.5, Ur Specific [place] 1.020, Urine Protein 2+, Urine Glucose (UA) Negative, Urine Ketones Negative, Urine Blood Trace-i, Urine Nitrate Negative, Urine Bilirubin Negative, Urine Urobilinogen 0.2, Ur Leukocyte Esterase Negative, Urine RBC None , Urine WBC Occasional, Ur Squamous Epith Cells 3-5, Urine Bacteria Trace, Urine Mucus 1+ 03/26/18 16:40: Blood Type O Positive, Antibody Screen Negative 03/26/18 17:14: POC Glucose 230 H 03/26/18 20:26: POC Glucose 301 H* 03/27/18 06:00: WBC 13.2 H D, RBC 3.02 L, Hgb 9.5 L D, Hct 29.5 L, MCV 97.8, MCH 31.1, MCHC 31.8, RDW 12.8, Plt Count 153, MPV 12.1 H, Neut % (Auto) 85.1 H, Lymph % (Auto) 9.5 L, [place] % (Auto) 5.3, Eos % (Auto) 0.0 L, Baso % (Auto) 0.1, Neut # (Auto) 11.3 H, Lymph # (Auto) 1.3, [place] # (Auto) 0.7, Eos # (Auto) 0.0, Baso # (Auto) 0.0, Total Counted 100, Neutrophils % (Manual) 87 H, Lymphocytes % (Manual) 9 L, Monocytes % (Manual) 4, Platelet Estimate Normal, RBC Morphology Not Reportable 03/27/18 06:00: Sodium 140, Potassium 4.9 D, Chloride 105, Carbon Dioxide 27, Anion Gap 12.9, BUN 37 H D, Creatinine 1.23 H, Estimated Creat Clear 41, Estimated GFR 42 L, Est GFR ( Amer) 50 L, Glucose 354 H D, Magnesium 1.5 03/27/18 06:05: POC Glucose 315 H* I & O for Last 24 hours: Intake & Output 03/24/18 03/25/18 03/26/18 03/27/18 11:59 11:59 11:59 11:59 Intake Total 1369 / 1369 Output Total 525 / 525 Balance 844 / 844 Weight 150 lb 168 lb 2 oz Assessment and Plan (1) Closed right hip fracture Current visit: Yes Status: Acute Category: Medical Code(s): S72.001A - Fracture of unspecified part of neck of right femur, initial encounter for closed fracture (2) Fall Current visit: Yes Status: Acute Category: Medical Code(s): W19.XXXA - Unspecified fall, initial encounter (3) Heart murmur Current visit: Yes Status: Chronic Category: Medical Code(s): R01.1 - Cardiac murmur, unspecified (4) HTN (hypertension) Current visit: Yes Status: Chronic Category: Medical Code(s): I10 - Essential (primary) hypertension (5) Renal insufficiency Current visit: Yes Status: Chronic Category: Medical Code(s): N28.9 - Disorder of kidney and ureter, unspecified (6) Type 2 diabetes mellitus Current visit: Yes Status: Chronic Category: Medical Code(s): E11.9 - Type 2 diabetes mellitus without complications - Assessment and plan all Dx Assessment and Plan for all problems:: Saw patient, concur with above note. Prelim echo report has EF of greater than 55%. OK for surgery today.
--- NOTE | 2018-03-27 16:56 | Operative Note ---
Date of procedure: 03/27/18 Pre-op Diagnosis:: Closed, displaced, comminuted, unstable intertrochanteric fracture with subtrochanteric extension, right hip Post-op Diagnosis:: Closed, displaced, comminuted, unstable intertrochanteric fracture with subtrochanteric extension, right hip Procedure performed:: 1. Open reduction and cerclage wiring, right femur 2. Cephalo-medullary nailing, right femur Surgeon:: Nikko Lynch MD Customer Care Consultant(s):: Dr. Cobb; the assistance of Dr. Cobb was required given the complexity and difficulty of the fracture and procedure. [employer]ER BLASTING:: Other (Félix walker) Anesthesia: GETA Estimated blood loss (mL): 300 Clinical Note:: Patient is an 82-year-old female who suffered a closed, comminuted and displaced , unstable RIGHT intertrochanteric fracture with subtrochanteric extension following a mechanical fall in the bathroom at home. Following evaluation in the emergency room where imaging showed a displaced, comminuted and unstable intertrochanteric fracture of her RIGHT proximal femur with subtrochanteric extension, she was admitted for further management. I have discussed the diagnosis , natural history and management options in detail including both nonsurgical and surgical, with the patient and her family. She was fairly mobile and independent prior to the injury. After a detailed discussion with the patient and her family a decision was made to fix the RIGHT femur fracture internally with cephalo-medullary nailing. Given the fracture pattern and displacement, it is very likely that she would also need an open reduction and cerclage wiring as well prior to the nailing. I have discussed the procedure, alternatives, risks and benefits, postoperative recovery and rehabilitation and the expected outcomes. The complications discussed include but are not limited to DVT, PE, infection, bleeding, injury to nerves and blood vessels, screw cut- out/implant failure, loss of fixation, nonunion, malunion/malrotation, osteonecrosis of the femoral head, femoral shaft fracture, painful hardware, heterotopic ossification, stiffness, weakness, incomplete relief of pain, incomplete return of function or motion and the likely need for further surgery in future, and anesthetic/medical complications including heart attack, stroke, transfusion reaction or . The patient and her family wished to proceed with the surgical remediation. The nonsurgical alternatives were discussed as well. Consent form was reviewed and signed by me. The limb was appropriately marked and initialed by me. Following appropriate preoperative workup and medical clearance, she was brought to the operating room for surgery. The surgery is indicated to reduce and stabilize the fracture, relieve pain and improve function. Operative findings:: Comminuted, displaced and unstable intertrochanteric fracture with subtrochanteric extension of the RIGHT proximal femur as noted on the preoperative x-rays. The fracture could not be reduced satisfactorily by closed manipulation and therefore required an open reduction and cerclage wiring. It was then fixed in a stable fashion with a long cephalo-medullary nail. Bone quality is good. Operative note:: Following appropriate preoperative workup, patient was brought to the operating room and a spinal anesthesia was administered. She was then positioned supine on the fracture table and all the bony prominences were appropriately padded. The RIGHT foot was secured in the footplate and the footplate was attached to the fracture table. The left leg was placed out of the way in a leg moore. When screened under fluoroscopy, we noticed that the fracture is not completely reduced. Therefore, multiple attempts were made to reduce the fracture under fluoroscopic guidance after taking the foot out of the footplate. Given the long spiral, unstable and comminuted fracture configuration, we could not get a satisfactory reduction at this stage. Therefore, we decided to perform an open reduction of the fracture and cerclage wiring to obtain a stable and satisfactory reduction prior to performing the cephalo-medullary nailing. The RIGHT hip and RIGHT thigh were then prepped and draped in the usual sterile fashion. Administration of prophylactic antibiotics was confirmed with the anesthetic team. A preprocedure timeout was performed as per the hospital protocol. A long lateral skin incision was made for the lateral approach to the proximal femur. The incision was deepened through subcutaneous tissue and then the fascia viridiana was incised in line with the skin incision. The vastus lateralis muscle was released from the intermuscular septum gaining access to the fracture site. We noted a long spiral fracture as seen on the preoperative x-rays. The fracture ends were cleared of hematoma. We then reduced the fracture satisfactorily under direct vision and confirmed satisfactory reduction using the fluoroscopic control. The reduction was difficult but in the end we obtained a satisfactory reduction and held with the reduction clamps. We then passed 2 x 2 mm [employer] Accord cerclage cable wire system around the femur at the level of the fracture. The cable wires were then tightened appropriately using the user support analyst making sure the fracture is still appropriately reduced. At this stage the wires were left uncut but subsequently they were cut close to the clamps after completion of the cephalo- medullary nailing of the femur. We then proceeded to perform the cephalo-medullary nailing in the usual fashion. After marking the level of the greater trochanter on the skin under fluoroscopy, a skin incision was made proximal to the greater trochanter in line with the femoral shaft. The dissection was then carried through the subcutaneous tissue. The tensor fascia muscle was split in line with the fibers. This provided access to the tip of the greater trochanter. Under fluoroscopic control the starting guidewire was placed appropriately and advanced into the proximal femur. Initial reaming was performed over this guidewire and the guidewire was exchanged for a long ball-tipped guidewire. The ball-tipped guidewire was passed across the fracture site into the distal fragment under fluoroscopic control. The position of the guidewire was confirmed in both AP and lateral views. Then sequential reaming was performed with flexible reamers over the guidewire up to 12.5 mm reamer. The required nail length was measured. A 125 degree angle, 11.5 mm diameter, long (420 mm) RIGHT Trigen InterTAN nail was selected. The selected nail was attached to the proximal jig and the nail was then inserted into the femur under fluoroscopic guidance. We then seated the nail to the appropriate level and proceeded to introduce the integrated proximal interlocking screws. The lag screw drill sleeve was placed through the proximal jig and advanced onto the bone. The guidepin was placed into the femoral head under fluoroscopic control. After confirming satisfactory placement of the right in both AP and lateral fluoroscopic views the length was measured. A 100 mm lag screw was selected. The compression screw started today was used to make appropriate drill hole for the compression screw. I then placed the antirotation bar into the compression screw drill hole. The lag screw drill was then inserted over the guidepin and treatment with appropriate level. Lag screw was then inserted over the guidewire. I then removed the antirotation bar and placed a 90 mm compression screw and advanced into position. The traction was released and appropriate compression was achieved. The guide pins were removed. After confirming satisfactory placement of the lag screw and compression screw, the set screw was tightened. The guide pin and sheath were then removed. I then proceeded to perform the distal locking through both the dynamic dynamic and static holes- we used the freehand technique for this. After appropriately positioning the C-arm and obtaining round holes on the lateral view, I performed freehand distal locking through both the dynamic and static holes. I used 5 mm x 47.5 mm and 42.5 millimeters screws for distal locking. l the appropriate placement of the distal locking screws was confirmed by fluoroscopic screening in both the AP and lateral views. The reduction and fixation were noted to be satisfactory and stable. Fluoroscopic images were obtained and stored for future reference. The cerclage wires were cut appropriately close to the clamps after confirming the clamps were fully tightened. The wounds were washed out with normal saline and hemostasis was obtained with the diathermy cautery. The wounds were then closed in layers with the 0 Vicryl, 2-0 Vicryl and 4-0 Monocryl subcuticular sutures, Dermabond and Steri-Strips to the skin. Sterile dressings were applied. The RIGHT foot was taken out of the foot moore and the left leg out of the leg moore and placed on the table extension. The limb lengths were noted to be equal and there was no rotational deformity. Dorsalis pedis and posterior tibial pulses were 1+ on both sides. At the end of the procedure, swab, needle and instrument counts were correct according to the scrub team. Patient was then transferred onto the bed. She was then transported to the PACU in a stable condition. Patient tolerated the procedure well and there were no immediate complications. Portable x-rays of RIGHT hip AP and cross-table lateral views and x-rays of the left femur were obtained in the PACU and were noted to be satisfactory. Postoperatively patient will receive 3 further doses of prophylactic antibiotics , DVT prophylaxis as per protocol and IV and oral analgesia as needed. Medical management as per Dr. Winkler's team. She can be mobilized on first postoperative day with a walker, weight bearing on the RIGHT side as tolerated. Implants: [employer] Accord 2 mm cable with clamp 2 [employer] Trigen InterTAN long nailing system- 125 degree angle, 11.5 mm diameter, long (420 mm) RIGHT Trigen InterTAN nail Trigen InterTAN integrated interlocking lag screw-100 mm lag screw and a 95 mm compression screw 5 mm x 47.5 mm and 5 mm x 42.5 mm distal locking screws. (Industry provider relations representative: Cisco Hayes from [employer] [facility] [employer]) Condition: stable Disposition: PACU Specimens:: None Complications:: None
--- NOTE | 2018-03-27 17:07 | Progress Note ---
[facility] Anesthesia Checklist - Patient Identification Patient Identification: Arm Band, Verbal (Name & ) - Structural Data Admitted From: Home Consent for Planned Operative Procedure(s) Verified: Yes Verified Documents: Surgical Consent, History and Physical - NPO Status Verified Time NPO: 00:00 - Additional verifications Patient : No Anesthesia Reactions: No - Airway Assessment C-Spine Mobility Assessed: Yes TMJ Mobility Assessed: Yes Dentition: Good Dentition (Bridges) - Neurological Assessment Level of Consciousness: Awake Hx Seizures: No Numbness or tingling in extremities: No - Anesthesia Plan Anesthesia Risk discussed: Yes Anesthesia Plan: Verified ASA Class: III Anesthesia Type: General [facility] Anesthesia HX I have reviewed the patient's past medical history: Yes Medical History: Reports:: Cancer (colon), Cerebrovascular Accident, Diabetes Mellitus Type 2, Hypertension Other Medical History: Reports: Hypothyroidism *Family Hx:: Diabetes
--- NOTE | 2018-03-27 17:09 | Progress Note ---
[facility] Anesthesia Record Part II Discharge Time: 17:15 Destination: Medical Surgical Department PACU nurse assessment reviewed?: Yes Patient Condition:: Good Anesthesia Complications:: None
--- NOTE | 2018-03-27 17:09 | Progress Note ---
[facility] Anesthesia Record Part I Intake, IV Amount: 1,700 Estimated blood loss (mL): 250 Urine output (mL): 300 Blood Products used (#): none Blood Pressure: 128/44 SaO2: 100 Pulse Rate: 83 Respiratory Rate: 14 Temperature: 98.5 F Patient is:: Drowsy Stable to PACU at:: 17:15
[2018-03-28 06:44] LABS: Basophils % 0.1 % (0.1-2.0); Lymphocytes # 1.2 K/mm3 (0.7-4.5); Lymphocytes % 7.1 K/mm3 (10-50); Mean Corpuscular HGB Conc 31.7 g/dL (31.8-35.4); Mean Corpuscular Hemoglobin 31.4 pg (27.0-31.2); Mean Corpuscular Volume 99.1 fl (81-99); Mean Platelet Volume 12.9 fl (7.4-10.4); Monocytes # 0.8 K/mm3 (0.1-1.0); Monocytes % 5.1 % (1.7-9.3); Neutrophils # 14.2 K/mm3 (1.8-7.8); Neutrophils % 87.7 % (37.0-80.0); Platelet Count 129 K/mm3 (142-424); Red Blood Count 2.33 M/mm3 (4.20-5.40); White Blood Count 16.1 K/mm3 (4.8-10.8)
[2018-03-28 06:50] LABS: Albumin/Globulin Ratio 0.7 (1.1-1.8); Anion Gap 15.3 mEq/L (5-15); Bilirubin,Total 0.3 mg/dL (0.2-1.0); Calcium 8.1 mg/dL (8.5-10.1); Globulin 2.8 gm/dl (1.3-3.2); Potassium 5.3 mmoL/L (3.5-5.1); Total Protein,Serum 4.8 gm/dL (6.4-8.2)
[2018-03-28 06:55] LABS: Hematocrit 23.1 % (37.0-47.0); Hemoglobin 7.3 g/dL (12.2-16.2)
--- NOTE | 2018-03-28 08:28 | Progress Note ---
<Charo Avery - Last Filed: 03/28/18 08:24> Internal Medicine - PN: Subj *Date: 03/28/18 *Time: 08:24 Interval history: Patient states she is feeling well this a.m. She denies any nausea. Her pain is controlled. She states she slept well throughout the night and she is eating this morning. Exam Vital signs and Labs for Last 24 Hours: Temp Pulse Resp BP Pulse Ox 97.4 F L 95 H 18 125/49 98 03/28/18 07:34 03/28/18 07:34 03/28/18 07:34 03/28/18 07:34 03/28/18 07:34 Laboratory Results - last 24 hr 03/26/18 16:40: Crossmatch (AHG) See Detail 03/27/18 11:10: POC Glucose 236 H 03/27/18 12:32: POC Glucose 217 H 03/27/18 17:14: POC Glucose 331 H* 03/27/18 20:24: POC Glucose 362 H* 03/28/18 05:52: POC Glucose 389 H* 03/28/18 06:15: WBC 16.1 H, RBC 2.33 L, Hgb 7.3 L*, Hct 23.1 L*, MCV 99.1 H, MCH 31.4 H, MCHC 31.7 L, RDW 13.0, Plt Count 129 L, MPV 12.9 H, Neut % (Auto) 87.7 H, Lymph % (Auto) 7.1 L, [place] % (Auto) 5.1, Eos % (Auto) 0.0 L, Baso % ( Auto) 0.1, Neut # (Auto) 14.2 H, Lymph # (Auto) 1.2, [place] # (Auto) 0.8, Eos # ( Auto) 0.0, Baso # (Auto) 0.0 03/28/18 06:15: Sodium 139, Potassium 5.3 H, Chloride 105, Carbon Dioxide 24, Anion Gap 15.3 H, BUN 51 H D, Creatinine 1.72 H D, Estimated Creat Clear 29, Estimated GFR 28 L, Est GFR ( Amer) 34 L D, Glucose 409 H*, Calcium 8.1 L , Total Bilirubin 0.3, AST 33, ALT 20 D, Alkaline Phosphatase 66, Total Protein 4.8 L D, Albumin 2.0 L, Globulin 2.8, Albumin/Globulin Ratio 0.7 L I & O for Last 24 hours: Intake & Output 03/25/18 03/26/18 03/27/18 03/28/18 11:59 11:59 11:59 11:59 Intake Total 1369 / 1369 2654 / 2654 Output Total 525 / 525 425 / 425 Balance 844 / 844 2229 / 2229 Weight 150 lb 168 lb 2 oz 168 lb 1.992 oz - Constitutional no acute distress - *Routine Respiratory Exam Present: CTA bilaterally - *Routine Cardiovascular Exam Present: RRR - *Routine Abdominal Exam Present: soft, normoactive bowel sounds. Absent: tenderness - *Routine Extremities Exam Absent: edema - *Routine Skin Exam Comments: dressing in place on the right upper leg Assessment and Plan (1) Femur fracture, right Current visit: Yes Status: Acute Qualifiers: Encounter type: initial encounter Femur location: intertrochanteric Fracture type: closed Fracture alignment: displaced Qualified Code(s): S72.141A - Displaced intertrochanteric fracture of right femur, initial encounter for closed fracture Category: Medical Code(s): S72.91XA - Unspecified fracture of right femur, initial encounter for closed fracture (2) Fall Current visit: Yes Status: Acute Category: Medical Code(s): W19.XXXA - Unspecified fall, initial encounter (3) HTN (hypertension) Current visit: Yes Status: Chronic Category: Medical Code(s): I10 - Essential (primary) hypertension (4) Heart murmur Current visit: Yes Status: Chronic Category: Medical Code(s): R01.1 - Cardiac murmur, unspecified (5) Renal insufficiency Current visit: Yes Status: Chronic Category: Medical Code(s): N28.9 - Disorder of kidney and ureter, unspecified (6) Type 2 diabetes mellitus Current visit: Yes Status: Chronic Category: Medical Code(s): E11.9 - Type 2 diabetes mellitus without complications - Assessment and plan all Dx Assessment and Plan for all problems:: Patient is doing well after her hip repair. Her H&H is low. A transfusion has been ordered by Dr. Lynch. Will continue as per orthopedics. May need to increase sliding scale insulin d/t elevated glucose level. <Rubén Winkler - Last Filed: 03/28/18 09:07> Internal Medicine - PN: Subj *Date: 03/28/18 *Time: 09:06 Exam Vital signs and Labs for Last 24 Hours: Temp Pulse Resp BP Pulse Ox 97.4 F L 95 H 18 125/49 98 03/28/18 07:34 03/28/18 07:34 03/28/18 07:34 03/28/18 07:34 03/28/18 07:34 Laboratory Results - last 24 hr 03/26/18 16:40: Blood Type O Positive, Antibody Screen Negative, Crossmatch (AHG ) See Detail 03/27/18 11:10: POC Glucose 236 H 03/27/18 12:32: POC Glucose 217 H 03/27/18 17:14: POC Glucose 331 H* 03/27/18 20:24: POC Glucose 362 H* 03/28/18 05:52: POC Glucose 389 H* 03/28/18 06:15: WBC 16.1 H, RBC 2.33 L, Hgb 7.3 L*, Hct 23.1 L*, MCV 99.1 H, MCH 31.4 H, MCHC 31.7 L, RDW 13.0, Plt Count 129 L, MPV 12.9 H, Neut % (Auto) 87.7 H, Lymph % (Auto) 7.1 L, [place] % (Auto) 5.1, Eos % (Auto) 0.0 L, Baso % ( Auto) 0.1, Neut # (Auto) 14.2 H, Lymph # (Auto) 1.2, [place] # (Auto) 0.8, Eos # ( Auto) 0.0, Baso # (Auto) 0.0 03/28/18 06:15: Sodium 139, Potassium 5.3 H, Chloride 105, Carbon Dioxide 24, Anion Gap 15.3 H, BUN 51 H D, Creatinine 1.72 H D, Estimated Creat Clear 29, Estimated GFR 28 L, Est GFR ( Amer) 34 L D, Glucose 409 H*, Calcium 8.1 L , Total Bilirubin 0.3, AST 33, ALT 20 D, Alkaline Phosphatase 66, Total Protein 4.8 L D, Albumin 2.0 L, Globulin 2.8, Albumin/Globulin Ratio 0.7 L I & O for Last 24 hours: Intake & Output 03/25/18 03/26/18 03/27/18 03/28/18 11:59 11:59 11:59 11:59 Intake Total 1369 / 1369 2654 / 2654 Output Total 525 / 525 425 / 425 Balance 844 / 844 2229 / 2229 Weight 150 lb 168 lb 2 oz 168 lb 1.992 oz Assessment and Plan (1) Femur fracture, right Current visit: Yes Status: Acute Qualifiers: Encounter type: initial encounter Femur location: intertrochanteric Fracture type: closed Fracture alignment: displaced Qualified Code(s): S72.141A - Displaced intertrochanteric fracture of right femur, initial encounter for closed fracture Category: Medical Code(s): S72.91XA - Unspecified fracture of right femur, initial encounter for closed fracture (2) Fall Current visit: Yes Status: Acute Category: Medical Code(s): W19.XXXA - Unspecified fall, initial encounter (3) HTN (hypertension) Current visit: Yes Status: Chronic Category: Medical Code(s): I10 - Essential (primary) hypertension (4) Heart murmur Current visit: Yes Status: Chronic Category: Medical Code(s): R01.1 - Cardiac murmur, unspecified (5) Renal insufficiency Current visit: Yes Status: Chronic Category: Medical Code(s): N28.9 - Disorder of kidney and ureter, unspecified (6) Type 2 diabetes mellitus Current visit: Yes Status: Chronic Category: Medical Code(s): E11.9 - Type 2 diabetes mellitus without complications - Assessment and plan all Dx Assessment and Plan for all problems:: Saw patient, agree with above note.
[2018-03-28 10:45] LABS: Lymphocytes % 5 % (10-50); Monocytes % 1 % (2-9); Neutrophils % 89 % (42-76); Total Cells Counted 100
[2018-03-28 14:16] LABS: Hematocrit 28.3 % (37.0-47.0)
--- NOTE | 2018-03-28 14:18 | Progress Note ---
Subjective Date: 03/28/18 Time: 12:00 Principal diagnosis: Status post cephalo-medullary nailing, femur PN: Obj Ex Vital signs: Temp Pulse Resp BP Pulse Ox 98.5 F 86 20 150/54 98 03/28/18 13:00 03/28/18 13:00 03/28/18 13:00 03/28/18 13:00 03/28/18 13:00 Narrative: Laboratory Results - last 24 hr 03/26/18 16:40: Blood Type O Positive, Antibody Screen Negative, Crossmatch (AHG ) See Detail 03/27/18 11:10: POC Glucose 236 H 03/27/18 17:14: POC Glucose 331 H* 03/27/18 20:24: POC Glucose 362 H* 03/28/18 05:52: POC Glucose 389 H* 03/28/18 06:15: WBC 16.1 H, RBC 2.33 L, Hgb 7.3 L*, Hct 23.1 L*, MCV 99.1 H, MCH 31.4 H, MCHC 31.7 L, RDW 13.0, Plt Count 129 L, MPV 12.9 H, Neut % (Auto) 87.7 H, Lymph % (Auto) 7.1 L, [place] % (Auto) 5.1, Eos % (Auto) 0.0 L, Baso % ( Auto) 0.1, Neut # (Auto) 14.2 H, Lymph # (Auto) 1.2, [place] # (Auto) 0.8, Eos # ( Auto) 0.0, Baso # (Auto) 0.0, Total Counted 100, Neutrophils % (Manual) 89 H, Band Neutrophils % 3.0, Lymphocytes % (Manual) 5 L, Monocytes % (Manual) 1 L, Metamyelocytes % 2.0 H, Platelet Estimate Slight decrease 03/28/18 06:15: Sodium 139, Potassium 5.3 H, Chloride 105, Carbon Dioxide 24, Anion Gap 15.3 H, BUN 51 H D, Creatinine 1.72 H D, Estimated Creat Clear 29, Estimated GFR 28 L, Est GFR ( Amer) 34 L D, Glucose 409 H*, Calcium 8.1 L , Total Bilirubin 0.3, AST 33, ALT 20 D, Alkaline Phosphatase 66, Total Protein 4.8 L D, Albumin 2.0 L, Globulin 2.8, Albumin/Globulin Ratio 0.7 L 03/28/18 11:38: POC Glucose 358 H* Intake & Output 03/26/18 03/27/18 03/28/18 03/29/18 11:59 11:59 11:59 11:59 Intake Total 1369 / 1369 2654 / 2654 240 / 240 Output Total 525 / 525 425 / 425 Balance 844 / 844 2229 / 2229 240 / 240 Weight 150 lb 168 lb 2 oz 168 lb 1.992 oz Vitals,I&O,and Labs: I reviewed her vital signs, lab results, medication, nursing notes, medical progress notes and also discussed with the nursing staff regarding her progress. Exam General appearance: Alert, awake, no acute distress ENT: Moist mucous membranes Cardiovascular: regular rate & rhythm Respiratory: no respiratory distress, lungs clear to auscultation bilaterally ABD: soft and nontender. Bowel sounds heard over all 4 quadrants. Skin: no gross abnormalities Neuro: Alert and oriented 3; moving all 4 extremities actually On examination of her right lower extremity, the limb lengths are equal. The alignment is neutral. The dressings over the right hip/thigh are clean, dry and intact. Attempted movements of the right hip are painful. Distal neurovascular status is intact. Thigh and calf are soft and nontender. No clinical signs of DVT. - Urinary Catheter Management [place] Cath placed during this visit: yes Urethral indwelling: Yes Reason for continuing: Surgical procedure Insertion date: 03/26/18 Insertion time: 11:51 Progress Note: A&P (1) Femur fracture, right Status: Acute Current Visit: Yes (2) Fall Status: Acute Current Visit: Yes (3) HTN (hypertension) Status: Chronic Current Visit: Yes (4) Heart murmur Status: Chronic Current Visit: Yes (5) Renal insufficiency Status: Chronic Current Visit: Yes (6) Type 2 diabetes mellitus Status: Chronic Current Visit: Yes Assessment and Plan for All Diagnoses:: I reviewed the operative findings and procedure performed with the patient and her family. Her postoperative hemoglobin was low and she is being transfused 2 units of PRBC. Physical therapy are going to come and mobilize her after she completes the blood transfusion. Patient says she is doing well and reports very little pain. She is eating and drinking well. She can be mobilized/ transferred with a walker and with the help of physical therapist weightbearing on the right side as tolerated. Continue PT/OT, pain management with as needed narcotic analgesics. Discontinue IV fluids and discontinue the catheter. Continue DVT prophylaxis and I would recommend DVT prophylaxis for 5 weeks postop- the appropriate agents include Lovenox, Aspirin 325 mg, Xarelto ( Rivaroxaban), Eliquis (apixaban) and Coumadin. Care management to look into discharge planning. Continue medical management as per Dr. Winkler's team.
[2018-03-28 14:28] LABS: Hemoglobin 9.4 g/dL (12.2-16.2)
--- NOTE | 2018-03-29 08:21 | Progress Note ---
<Charo Avery - Last Filed: 03/29/18 08:19> Internal Medicine - PN: Subj *Date: 03/29/18 *Time: 08:19 Interval history: Patient states she is feeling well this morning. She was up in a chair and worked with physical therapy yesterday. She states her pain is under control. She slept well last night and ate well this morning. Exam Vital signs and Labs for Last 24 Hours: Temp Pulse Resp BP Pulse Ox 97.4 F L 83 16 127/42 100 03/29/18 08:00 03/29/18 08:00 03/29/18 08:00 03/29/18 08:00 03/29/18 08:00 Laboratory Results - last 24 hr 03/26/18 16:40: Blood Type O Positive, Antibody Screen Negative, Crossmatch (AHG ) See Detail 03/28/18 06:15: Total Counted 100, Neutrophils % (Manual) 89 H, Band Neutrophils % 3.0, Lymphocytes % (Manual) 5 L, Monocytes % (Manual) 1 L, Metamyelocytes % 2.0 H, Platelet Estimate Slight decrease 03/28/18 11:38: POC Glucose 358 H* 03/28/18 14:07: Hgb 9.4 L D, Hct 28.3 L 03/28/18 16:24: POC Glucose 262 H 03/28/18 20:28: POC Glucose 137 H 03/29/18 05:54: POC Glucose 223 H I & O for Last 24 hours: Intake & Output 03/26/18 03/27/18 03/28/18 03/29/18 11:59 11:59 11:59 11:59 Intake Total 1369 / 1369 2654 / 2654 480 / 480 Output Total 525 / 525 425 / 425 275 / 275 Balance 844 / 844 2229 / 2229 205 / 205 Weight 150 lb 168 lb 2 oz 168 lb 1.992 oz - Constitutional no acute distress - *Routine Respiratory Exam Present: rales (left base). Absent: wheezes - *Routine Cardiovascular Exam Present: RRR - *Routine Abdominal Exam Present: soft, normoactive bowel sounds. Absent: tenderness - *Routine Extremities Exam Absent: edema - *Routine Skin Exam Comments: dressing in place on right hip Assessment and Plan (1) Femur fracture, right Current visit: Yes Status: Acute Qualifiers: Encounter type: initial encounter Femur location: intertrochanteric Fracture type: closed Fracture alignment: displaced Qualified Code(s): S72.141A - Displaced intertrochanteric fracture of right femur, initial encounter for closed fracture Category: Medical Code(s): S72.91XA - Unspecified fracture of right femur, initial encounter for closed fracture (2) Fall Current visit: Yes Status: Acute Category: Medical Code(s): W19.XXXA - Unspecified fall, initial encounter (3) HTN (hypertension) Current visit: Yes Status: Chronic Category: Medical Code(s): I10 - Essential (primary) hypertension (4) Heart murmur Current visit: Yes Status: Chronic Category: Medical Code(s): R01.1 - Cardiac murmur, unspecified (5) Renal insufficiency Current visit: Yes Status: Chronic Category: Medical Code(s): N28.9 - Disorder of kidney and ureter, unspecified (6) Type 2 diabetes mellitus Current visit: Yes Status: Chronic Category: Medical Code(s): E11.9 - Type 2 diabetes mellitus without complications (7) Rales 1/[address] up posterior chest wall on left side Current visit: Yes Status: Acute Category: Medical Code(s): R09.89 - Other specified symptoms and signs involving the circulatory and respiratory systems - Assessment and plan all Dx Assessment and Plan for all problems:: Patient is improving. Her H&H has improved after transfusion. She does have some crackles in her left base. Will get a chest x-ray today. <Rubén Winkler - Last Filed: 03/29/18 08:45> Internal Medicine - PN: Subj *Date: 03/29/18 *Time: 08:44 Exam Vital signs and Labs for Last 24 Hours: Temp Pulse Resp BP Pulse Ox 97.4 F L 83 16 127/42 100 03/29/18 08:00 03/29/18 08:00 03/29/18 08:00 03/29/18 08:00 03/29/18 08:00 Laboratory Results - last 24 hr 03/26/18 16:40: Blood Type O Positive, Antibody Screen Negative, Crossmatch (AHG ) See Detail 03/28/18 06:15: Total Counted 100, Neutrophils % (Manual) 89 H, Band Neutrophils % 3.0, Lymphocytes % (Manual) 5 L, Monocytes % (Manual) 1 L, Metamyelocytes % 2.0 H, Platelet Estimate Slight decrease 03/28/18 11:38: POC Glucose 358 H* 03/28/18 14:07: Hgb 9.4 L D, Hct 28.3 L 03/28/18 16:24: POC Glucose 262 H 03/28/18 20:28: POC Glucose 137 H 03/29/18 05:54: POC Glucose 223 H I & O for Last 24 hours: Intake & Output 03/26/18 03/27/18 03/28/18 03/29/18 11:59 11:59 11:59 11:59 Intake Total 1369 / 1369 2654 / 2654 480 / 480 Output Total 525 / 525 425 / 425 275 / 275 Balance 844 / 844 2229 / 2229 205 / 205 Weight 150 lb 168 lb 2 oz 168 lb 1.992 oz Assessment and Plan (1) Femur fracture, right Current visit: Yes Status: Acute Qualifiers: Encounter type: initial encounter Femur location: intertrochanteric Fracture type: closed Fracture alignment: displaced Qualified Code(s): S72.141A - Displaced intertrochanteric fracture of right femur, initial encounter for closed fracture Category: Medical Code(s): S72.91XA - Unspecified fracture of right femur, initial encounter for closed fracture (2) Fall Current visit: Yes Status: Acute Category: Medical Code(s): W19.XXXA - Unspecified fall, initial encounter (3) HTN (hypertension) Current visit: Yes Status: Chronic Category: Medical Code(s): I10 - Essential (primary) hypertension (4) Heart murmur Current visit: Yes Status: Chronic Category: Medical Code(s): R01.1 - Cardiac murmur, unspecified (5) Renal insufficiency Current visit: Yes Status: Chronic Category: Medical Code(s): N28.9 - Disorder of kidney and ureter, unspecified (6) Type 2 diabetes mellitus Current visit: Yes Status: Chronic Category: Medical Code(s): E11.9 - Type 2 diabetes mellitus without complications (7) Rales 1/[address] up posterior chest wall on left side Current visit: Yes Status: Acute Category: Medical Code(s): R09.89 - Other specified symptoms and signs involving the circulatory and respiratory systems - Assessment and plan all Dx Assessment and Plan for all problems:: Saw patient, concur with above note. Discharge planning ongoing.
--- NOTE | 2018-03-29 12:01 | Progress Note ---
Subjective Date: 03/29/18 Time: 08:30 Principal diagnosis: Status post cephalo-medullary nailing, right femur Interval history: Patient is status post open reduction, cerclage wiring and cephalo-medullary nailing right femur post op day # 2. She is lying down in bed. She says she is feeling a lot better today and says her pain is well controlled with medication. She also states that she is eating and drinking well. No history of any fevers, chills or rigors. No history of any nausea, vomiting, chest pain or SOB. She says she slept well last night. She was up in a chair and worked with physical therapy yesterday. She states her pain is under control. PN: Obj Ex Vital signs: Temp Pulse Resp BP Pulse Ox 97.4 F L 83 16 127/42 100 03/29/18 08:00 03/29/18 09:30 03/29/18 09:30 03/29/18 08:00 03/29/18 09:30 Narrative: Laboratory Last Values WBC 16.1 K/mm3 (4.8-10.8) H 03/28/18 06:15 RBC 2.33 M/mm3 (4.20-5.40) L 03/28/18 06:15 Hgb 9.4 g/dL (12.2-16.2) L D 03/28/18 14:07 Hct 28.3 % (37.0-47.0) L 03/28/18 14:07 MCV 99.1 fl (81-99) H 03/28/18 06:15 MCH 31.4 pg (27.0-31.2) H 03/28/18 06:15 MCHC 31.7 g/dL (31.8-35.4) L 03/28/18 06:15 RDW 13.0 % (11.5-17.5) 03/28/18 06:15 Plt Count 129 K/mm3 (142-424) L 03/28/18 06:15 MPV 12.9 fl (7.4-10.4) H 03/28/18 06:15 Neut % (Auto) 87.7 % (37.0-80.0) H 03/28/18 06:15 Lymph % (Auto) 7.1 K/mm3 (10-50) L 03/28/18 06:15 [place] % (Auto) 5.1 % (1.7-9.3) 03/28/18 06:15 Eos % (Auto) 0.0 % (0.1-12.0) L 03/28/18 06:15 Baso % (Auto) 0.1 % (0.1-2.0) 03/28/18 06:15 Neut # (Auto) 14.2 K/mm3 (1.8-7.8) H 03/28/18 06:15 Lymph # (Auto) 1.2 K/mm3 (0.7-4.5) 03/28/18 06:15 [place] # (Auto) 0.8 K/mm3 (0.1-1.0) 03/28/18 06:15 Eos # (Auto) 0.0 K/mm3 (0.0-0.4) 03/28/18 06:15 Baso # (Auto) 0.0 K/mm3 (0-0.2) 03/28/18 06:15 Total Counted 100 03/28/18 06:15 Neutrophils % (Manual) 89 % (42-76) H 03/28/18 06:15 Band Neutrophils % 3.0 (0-8) 03/28/18 06:15 Lymphocytes % (Manual) 5 % (10-50) L 03/28/18 06:15 Monocytes % (Manual) 1 % (2-9) L 03/28/18 06:15 Metamyelocytes % 2.0 (0-1) H 03/28/18 06:15 Platelet Estimate Slight decrease 03/28/18 06:15 RBC Morphology Not Reportable 03/27/18 06:00 PT 10.7 seconds (9.4-11.8) 03/26/18 10:15 INR 0.99 (0.9-1.1) 03/26/18 10:15 APTT 22.2 seconds (23.6-34.0) L 03/26/18 10:15 Sodium 139 mmol/L (136-145) 03/28/18 06:15 Potassium 5.3 mmoL/L (3.5-5.1) H 03/28/18 06:15 Chloride 105 mmol/L (98-107) 03/28/18 06:15 Carbon Dioxide 24 mmol/L (21.0-32.0) 03/28/18 06:15 Anion Gap 15.3 mEq/L (5-15) H 03/28/18 06:15 BUN 51 mg/dL (7-18) H D 03/28/18 06:15 Creatinine 1.72 mg/dL (0.55-1.02) H D 03/28/18 06:15 Estimated Creat Clear 29 mL/min (0-300) 03/28/18 06:15 Estimated GFR 28 ml/min (>60) L 03/28/18 06:15 Est GFR ( Amer) 34 ML/MIN (>60) L D 03/28/18 06:15 Glucose 409 mg/dL (74-106) H* 03/28/18 06:15 POC Glucose 223 (70-110) H 03/29/18 05:54 Calcium 8.1 mg/dL (8.5-10.1) L 03/28/18 06:15 Magnesium 1.5 mg/dL (1.4-2.2) 03/27/18 06:00 Total Bilirubin 0.3 mg/dL (0.2-1.0) 03/28/18 06:15 AST 33 U/L (15-37) 03/28/18 06:15 ALT 20 U/L (12-78) D 03/28/18 06:15 Alkaline Phosphatase 66 U/L (46-116) 03/28/18 06:15 Total Protein 4.8 gm/dL (6.4-8.2) L D 03/28/18 06:15 Albumin 2.0 gm/dL (3.4-5.0) L 03/28/18 06:15 Globulin 2.8 gm/dl (1.3-3.2) 03/28/18 06:15 Albumin/Globulin Ratio 0.7 (1.1-1.8) L 03/28/18 06:15 Urine Color Yellow (Yellow) 03/26/18 11:55 Urine Appearance Clear (Clear) 03/26/18 11:55 Urine pH 6.5 (5.0-8.5) 03/26/18 11:55 Ur Specific [place] 1.020 (1.005-1.030) 03/26/18 11:55 Urine Protein 2+ (Negative) 03/26/18 11:55 Urine Glucose (UA) Negative (Negative) 03/26/18 11:55 Urine Ketones Negative (Negative) 03/26/18 11:55 Urine Blood Trace-i (Negative) 03/26/18 11:55 Urine Nitrate Negative (Negative) 03/26/18 11:55 Urine Bilirubin Negative (Negative) 03/26/18 11:55 Urine Urobilinogen 0.2 EU/dl (0.2) 03/26/18 11:55 Ur Leukocyte Esterase Negative (Negative) 03/26/18 11:55 Urine RBC None #/hpf (0-3) 03/26/18 11:55 Urine WBC Occasional #/hpf (0-3) 03/26/18 11:55 Ur Squamous Epith Cells 3-5 #/hpf (0-5) 03/26/18 11:55 Urine Bacteria Trace /lpf (NONE) 03/26/18 11:55 Urine Mucus 1+ /lpf (None) 03/26/18 11:55 Blood Type O Positive 03/26/18 16:40 Antibody Screen Negative 03/26/18 16:40 Crossmatch (AHG) See Detail 03/26/18 16:40 Objective: Vitals,I&O,and Labs: I reviewed her vital signs, lab results, medication, nursing notes, medical progress notes and also discussed with the nursing staff regarding her progress. Exam General appearance: Alert, awake, no acute distress Cardiovascular: regular rate & rhythm Respiratory: no respiratory distress, lungs clear to auscultation bilaterally ABD: soft and nontender. Bowel sounds heard over all 4 quadrants. Skin: no gross abnormalities Neuro: Alert and oriented 3 On examination of her right lower extremity, the limb lengths are equal. The alignment is neutral. The dressings over the right hip/femur are clean, dry and intact. The dressings were changed by me and all the 3 surgical incisions look dry, clean and healthy. Attempted movements of the right hip are painful. Distal neurovascular status is intact. Thigh and calf are soft and nontender. No clinical signs of DVT. - Urinary Catheter Management [place] Cath placed during this visit: yes Urethral indwelling: No Insertion date: 03/26/18 Insertion time: 11:51 Progress Note: A&P (1) Femur fracture, right Status: Acute Current Visit: Yes (2) Fall Status: Acute Current Visit: Yes (3) HTN (hypertension) Status: Chronic Current Visit: Yes (4) Heart murmur Status: Chronic Current Visit: Yes (5) Renal insufficiency Status: Chronic Current Visit: Yes (6) Type 2 diabetes mellitus Status: Chronic Current Visit: Yes (7) Rales 1/[address] up posterior chest wall on left side Status: Acute Current Visit: Yes Assessment and Plan for All Diagnoses:: I reviewed the findings and progress with the patient and family. The dressings were changed and the incisions are healthy. Continue PT/OT, pain management with narcotic analgesics. From an orthopedic standpoint, she can be discharged/ transferred to a [place] [facility] facility if medically appropriate. Recommend DVT prophylaxis for 5 weeks postop- the appropriate agents include Lovenox, Aspirin 325 mg, Xarelto (Rivaroxaban), Eliquis (apixaban) and Coumadin. Follow-up in my office in 2 weeks time with check x-ray. Please feel free to call our office at [phone] for any orthopaedic questions. Medical management as per Dr. Winkler's team.
[2018-03-30 06:18] LABS: Basophils % 0.1 % (0.1-2.0); Eosinophils % 0.3 % (0.1-12.0); Hematocrit 25.2 % (37.0-47.0); Hemoglobin 8.4 g/dL (12.2-16.2); Lymphocytes # 1.8 K/mm3 (0.7-4.5); Mean Corpuscular HGB Conc 33.3 g/dL (31.8-35.4); Mean Corpuscular Volume 93.2 fl (81-99); Monocytes # 0.8 K/mm3 (0.1-1.0); Monocytes % 7.2 % (1.7-9.3); Neutrophils # 9.1 K/mm3 (1.8-7.8); Neutrophils % 77.4 % (37.0-80.0); Platelet Count 106 K/mm3 (142-424); Red Cell Distribution Width 13.8 % (11.5-17.5); White Blood Count 11.7 K/mm3 (4.8-10.8)
[2018-03-30 06:41] LABS: Anion Gap 8.7 mEq/L (5-15); Potassium 4.7 mmoL/L (3.5-5.1)
--- NOTE | 2018-03-30 08:39 | Progress Note ---
<Charo Avery - Last Filed: 03/30/18 08:36> Internal Medicine - PN: Subj *Date: 03/30/18 *Time: 08:36 Interval history: Patient states she is feeling well today. Her leg is sore but her pain is controlled. She was able to get up and work with therapy yesterday. Denies any cough or shortness of air. Exam Vital signs and Labs for Last 24 Hours: Temp Pulse Resp BP Pulse Ox 98.9 F 69 16 169/55 90 L 03/30/18 08:00 03/30/18 08:00 03/30/18 08:00 03/30/18 08:00 03/30/18 08:00 Laboratory Results - last 24 hr 03/29/18 11:19: POC Glucose 248 H 03/29/18 16:56: POC Glucose 271 H 03/29/18 20:14: POC Glucose 214 H 03/30/18 05:40: WBC 11.7 H D, RBC 2.70 L, Hgb 8.4 L, Hct 25.2 L, MCV 93.2, MCH 31.0, MCHC 33.3, RDW 13.8, Plt Count 106 L, MPV 12.0 H, Neut % (Auto) 77.4, Lymph % (Auto) 15.0, [place] % (Auto) 7.2, Eos % (Auto) 0.3, Baso % (Auto) 0.1, Neut # (Auto) 9.1 H, Lymph # (Auto) 1.8, [place] # (Auto) 0.8, Eos # (Auto) 0.0, Baso # (Auto) 0.0 03/30/18 05:40: Sodium 140, Potassium 4.7, Chloride 107, Carbon Dioxide 29 D, Anion Gap 8.7, BUN 47 H, Creatinine 1.25 H D, Estimated Creat Clear 40, Estimated GFR 41 L, Est GFR ( Amer) 49 L D, Glucose 136 H 03/30/18 06:04: POC Glucose 149 H I & O for Last 24 hours: Intake & Output 03/27/18 03/28/18 03/29/18 03/30/18 11:59 11:59 11:59 11:59 Intake Total 1369 / 1369 2654 / 2654 480 / 480 Output Total 525 / 525 425 / 425 475 / 475 150 / 150 Balance 844 / 844 2229 / 2229 5 / 5 -150 / -150 Weight 168 lb 2 oz 168 lb 1.992 oz - Constitutional no acute distress - *Routine Respiratory Exam Present: rales (left base) - *Routine Cardiovascular Exam Present: RRR - *Routine Abdominal Exam Present: soft, normoactive bowel sounds. Absent: tenderness - *Routine Extremities Exam Absent: edema Comments: bandage in place on right leg, clean and dry Assessment and Plan (1) Femur fracture, right Current visit: Yes Status: Acute Qualifiers: Encounter type: initial encounter Femur location: intertrochanteric Fracture type: closed Fracture alignment: displaced Qualified Code(s): S72.141A - Displaced intertrochanteric fracture of right femur, initial encounter for closed fracture Category: Medical Code(s): S72.91XA - Unspecified fracture of right femur, initial encounter for closed fracture (2) Fall Current visit: Yes Status: Acute Category: Medical Code(s): W19.XXXA - Unspecified fall, initial encounter (3) HTN (hypertension) Current visit: Yes Status: Chronic Category: Medical Code(s): I10 - Essential (primary) hypertension (4) Heart murmur Current visit: Yes Status: Chronic Category: Medical Code(s): R01.1 - Cardiac murmur, unspecified (5) Renal insufficiency Current visit: Yes Status: Chronic Category: Medical Code(s): N28.9 - Disorder of kidney and ureter, unspecified (6) Type 2 diabetes mellitus Current visit: Yes Status: Chronic Category: Medical Code(s): E11.9 - Type 2 diabetes mellitus without complications (7) Rales 1/[address] up posterior chest wall on left side Current visit: Yes Status: Acute Category: Medical Code(s): R09.89 - Other specified symptoms and signs involving the circulatory and respiratory systems (8) Anemia due to blood loss Current visit: Yes Status: Acute Category: Medical Code(s): D50.0 - Iron deficiency anemia secondary to blood loss (chronic) (9) Pneumonia Current visit: Yes Status: Acute Category: Medical Code(s): J18.9 - Pneumonia, unspecified organism - Assessment and plan all Dx Assessment and Plan for all problems:: Patient sats are slightly low today. She denies any cough or shortness of air however, chest x-ray showed a possible left lower lobe pneumonia. She was given a one-time dose of antibiotics yesterday in hopes that she could be discharged for rehab today. Her H&H is low again today as well. We will go ahead and start on IV antibiotics and recheck an H&H tomorrow morning. <Rubén Winkler - Last Filed: 03/30/18 09:20> Internal Medicine - PN: Subj *Date: 03/30/18 *Time: 09:19 Exam Vital signs and Labs for Last 24 Hours: Temp Pulse Resp BP Pulse Ox 98.9 F 69 16 169/55 90 L 03/30/18 08:00 03/30/18 08:00 03/30/18 08:00 03/30/18 08:00 03/30/18 08:00 Laboratory Results - last 24 hr 03/29/18 11:19: POC Glucose 248 H 03/29/18 16:56: POC Glucose 271 H 03/29/18 20:14: POC Glucose 214 H 03/30/18 05:40: WBC 11.7 H D, RBC 2.70 L, Hgb 8.4 L, Hct 25.2 L, MCV 93.2, MCH 31.0, MCHC 33.3, RDW 13.8, Plt Count 106 L, MPV 12.0 H, Neut % (Auto) 77.4, Lymph % (Auto) 15.0, [place] % (Auto) 7.2, Eos % (Auto) 0.3, Baso % (Auto) 0.1, Neut # (Auto) 9.1 H, Lymph # (Auto) 1.8, [place] # (Auto) 0.8, Eos # (Auto) 0.0, Baso # (Auto) 0.0 03/30/18 05:40: Sodium 140, Potassium 4.7, Chloride 107, Carbon Dioxide 29 D, Anion Gap 8.7, BUN 47 H, Creatinine 1.25 H D, Estimated Creat Clear 40, Estimated GFR 41 L, Est GFR ( Amer) 49 L D, Glucose 136 H 03/30/18 06:04: POC Glucose 149 H I & O for Last 24 hours: Intake & Output 03/27/18 03/28/18 03/29/18 03/30/18 11:59 11:59 11:59 11:59 Intake Total 1369 / 1369 2654 / 2654 480 / 480 Output Total 525 / 525 425 / 425 475 / 475 150 / 150 Balance 844 / 844 2229 / 2229 5 / 5 -150 / -150 Weight 168 lb 2 oz 168 lb 1.992 oz Assessment and Plan (1) Femur fracture, right Current visit: Yes Status: Acute Qualifiers: Encounter type: initial encounter Femur location: intertrochanteric Fracture type: closed Fracture alignment: displaced Qualified Code(s): S72.141A - Displaced intertrochanteric fracture of right femur, initial encounter for closed fracture Category: Medical Code(s): S72.91XA - Unspecified fracture of right femur, initial encounter for closed fracture (2) Fall Current visit: Yes Status: Acute Category: Medical Code(s): W19.XXXA - Unspecified fall, initial encounter (3) HTN (hypertension) Current visit: Yes Status: Chronic Category: Medical Code(s): I10 - Essential (primary) hypertension (4) Heart murmur Current visit: Yes Status: Chronic Category: Medical Code(s): R01.1 - Cardiac murmur, unspecified (5) Renal insufficiency Current visit: Yes Status: Chronic Category: Medical Code(s): N28.9 - Disorder of kidney and ureter, unspecified (6) Type 2 diabetes mellitus Current visit: Yes Status: Chronic Category: Medical Code(s): E11.9 - Type 2 diabetes mellitus without complications (7) Rales 1/[address] up posterior chest wall on left side Current visit: Yes Status: Acute Category: Medical Code(s): R09.89 - Other specified symptoms and signs involving the circulatory and respiratory systems (8) Anemia due to blood loss Current visit: Yes Status: Acute Category: Medical Code(s): D50.0 - Iron deficiency anemia secondary to blood loss (chronic) (9) Pneumonia Current visit: Yes Status: Acute Category: Medical Code(s): J18.9 - Pneumonia, unspecified organism - Assessment and plan all Dx Assessment and Plan for all problems:: Saw patient, concur with above note.
--- NOTE | 2018-03-30 11:30 | Progress Note ---
Subjective Date: 03/30/18 Time: 11:26 Principal diagnosis: Status post cephalo-medullary nailing, right femur Interval history: Patient is status post open reduction, cerclage wiring and cephalo-medullary nailing right femur post op day # 3. She is lying down in bed in good spirits. She says she is feeling a lot better today and says her pain is only present with movement. SINA Avery's note read. Dressings are clean and dry. Questions answered. Anticipate rehab center tomorrow. PN: Obj Ex Vital signs: Temp Pulse Resp BP Pulse Ox 98.9 F 69 16 169/55 90 L 03/30/18 08:00 03/30/18 08:00 03/30/18 08:00 03/30/18 08:00 03/30/18 08:00 - Urinary Catheter Management [place] Cath placed during this visit: yes Urethral indwelling: No Insertion date: 03/26/18 Insertion time: 11:51 Progress Note: A&P (1) Femur fracture, right Status: Acute Current Visit: Yes (2) Fall Status: Acute Assessment and plan: stable orthopaedically POD # Current Visit: Yes (3) HTN (hypertension) Status: Chronic Current Visit: Yes (4) Heart murmur Status: Chronic Current Visit: Yes (5) Renal insufficiency Status: Chronic Current Visit: Yes (6) Type 2 diabetes mellitus Status: Chronic Current Visit: Yes (7) Rales 1/[address] up posterior chest wall on left side Status: Acute Current Visit: Yes (8) Anemia due to blood loss Status: Acute Current Visit: Yes (9) Pneumonia Status: Acute Current Visit: Yes
[2018-03-31 06:55] LABS: Basophils % 0.2 % (0.1-2.0); Eosinophils # 0.1 K/mm3 (0.0-0.4); Eosinophils % 0.8 % (0.1-12.0); Hemoglobin 8.9 g/dL (12.2-16.2); Lymphocytes # 1.9 K/mm3 (0.7-4.5); Lymphocytes % 18.1 K/mm3 (10-50); Mean Corpuscular HGB Conc 32.2 g/dL (31.8-35.4); Mean Corpuscular Hemoglobin 30.4 pg (27.0-31.2); Mean Corpuscular Volume 94.4 fl (81-99); Mean Platelet Volume 11.7 fl (7.4-10.4); Monocytes # 0.7 K/mm3 (0.1-1.0); Monocytes % 6.8 % (1.7-9.3); Neutrophils # 7.9 K/mm3 (1.8-7.8); Neutrophils % 74.1 % (37.0-80.0); Platelet Count 137 K/mm3 (142-424); Red Blood Count 2.91 M/mm3 (4.20-5.40); Red Cell Distribution Width 13.9 % (11.5-17.5); White Blood Count 10.7 K/mm3 (4.8-10.8)
[2018-03-31 06:57] LABS: Hematocrit 27.5 % (37.0-47.0)
[2018-03-31 07:02] LABS: Anion Gap 8.2 mEq/L (5-15); Potassium 4.2 mmoL/L (3.5-5.1)
--- NOTE | 2018-03-31 09:51 | Progress Note ---
Internal Medicine - PN: Subj *Date: 03/31/18 *Time: 09:48 Interval history: Patient feels well today, ready to go to rehab facility. Exam Vital signs and Labs for Last 24 Hours: Temp Pulse Resp BP Pulse Ox 98.2 F 86 20 170/65 96 03/31/18 07:36 03/31/18 07:36 03/31/18 07:36 03/31/18 07:36 03/31/18 07:36 Laboratory Results - last 24 hr 03/30/18 12:20: POC Glucose 246 H 03/30/18 17:09: POC Glucose 141 H 03/30/18 20:11: POC Glucose 263 H 03/31/18 05:48: POC Glucose 74 03/31/18 06:25: WBC 10.7, RBC 2.91 L, Hgb 8.9 L, Hct 27.5 L, MCV 94.4, MCH 30.4 , MCHC 32.2, RDW 13.9, Plt Count 137 L D, MPV 11.7 H, Neut % (Auto) 74.1, Lymph % (Auto) 18.1, [place] % (Auto) 6.8, Eos % (Auto) 0.8, Baso % (Auto) 0.2, Neut # ( Auto) 7.9 H, Lymph # (Auto) 1.9, [place] # (Auto) 0.7, Eos # (Auto) 0.1, Baso # ( Auto) 0.0 03/31/18 06:25: Sodium 139, Potassium 4.2, Chloride 107, Carbon Dioxide 28, Anion Gap 8.2, BUN 38 H, Creatinine 1.17 H, Estimated Creat Clear 45, Estimated GFR 44 L, Est GFR ( Amer) 53 L, Glucose 130 H Vital Signs Temp Pulse Pulse Resp BP BP Pulse Ox 03/31/18 07:36 98.2 F 86 20 170/65 96 03/31/18 04:00 98.4 F 88 18 166/56 95 03/31/18 00:00 98.6 F 88 18 142/68 97 03/30/18 19:44 98.6 F 94 H 18 154/60 98 03/30/18 16:07 97.9 F 87 16 178/59 94 L 03/30/18 12:00 97.9 F 87 16 161/55 93 L Intake and Output 03/30/18 03/31/18 03/31/18 19:59 03:59 11:59 Intake Total 300 / 300 440 / 440 Output Total 200 / 200 Balance 300 / 300 240 / 240 Intake: Intake, Oral Amount 440 / 440 Intake, Total IV Amount 300 / 300 Azithromycin 500 mg In 0.9 % 250 / 250 Sodium Chloride 250 ml @ 250 mls/hr IV ONCE ONE Rx#: [id number] Ceftriaxone Sodium 1 gm In 0.9 50 / 50 % Sodium Chloride 50 ml @ 100 mls/hr IV ONCE ONE Rx#: [id number] Output: Output, Urine Amount 200 / 200 Other: Weight 176 lb 5 oz Patient Weight 03/31/18 11:59 Weight 176 lb 5 oz I & O for Last 24 hours: Intake & Output 03/28/18 03/29/18 03/30/18 03/31/18 11:59 11:59 11:59 11:59 Intake Total 2654 / 2654 480 / 480 740 / 740 Output Total 425 / 425 475 / 475 150 / 150 200 / 200 Balance 2229 / 2229 5 / 5 -150 / -150 540 / 540 Weight 168 lb 1.992 oz 176 lb 5 oz - Constitutional no acute distress - *Routine HEENT Exam ENT: Present: mucous membranes moist - *Routine Respiratory Exam Present: crackles (few bibasilar, left more than right, good air movement) - *Routine Cardiovascular Exam Present: RRR - *Routine Abdominal Exam Present: soft, normoactive bowel sounds. Absent: tenderness Assessment and Plan (1) Femur fracture, right Current visit: Yes Status: Acute Qualifiers: Encounter type: initial encounter Femur location: intertrochanteric Fracture type: closed Fracture alignment: displaced Qualified Code(s): S72.141A - Displaced intertrochanteric fracture of right femur, initial encounter for closed fracture Category: Medical Code(s): S72.91XA - Unspecified fracture of right femur, initial encounter for closed fracture (2) Fall Current visit: Yes Status: Acute Category: Medical Code(s): W19.XXXA - Unspecified fall, initial encounter (3) HTN (hypertension) Current visit: Yes Status: Chronic Category: Medical Code(s): I10 - Essential (primary) hypertension (4) Heart murmur Current visit: Yes Status: Chronic Category: Medical Code(s): R01.1 - Cardiac murmur, unspecified (5) Renal insufficiency Current visit: Yes Status: Chronic Category: Medical Code(s): N28.9 - Disorder of kidney and ureter, unspecified (6) Type 2 diabetes mellitus Current visit: Yes Status: Chronic Category: Medical Code(s): E11.9 - Type 2 diabetes mellitus without complications (7) Rales 1/[address] up posterior chest wall on left side Current visit: Yes Status: Acute Category: Medical Code(s): R09.89 - Other specified symptoms and signs involving the circulatory and respiratory systems (8) Anemia due to blood loss Current visit: Yes Status: Acute Category: Medical Code(s): D50.0 - Iron deficiency anemia secondary to blood loss (chronic) (9) Pneumonia Current visit: Yes Status: Acute Category: Medical Code(s): J18.9 - Pneumonia, unspecified organism - Assessment and plan all Dx Assessment and Plan for all problems:: H/H improved today, O2 sat good on RA, OK to discharge to [facility] today, will continue antibiotics for pneumonia.
--- NOTE | 2018-03-31 10:03 | Discharge Summary ---
General - General Admission date:: 03/26/18 Discharge date: 03/31/18 HPI HPI: Ms. Bey is a pleasant 82 years old white female admitted to inpatient services under Dr. Winkler earlier today with a diagnosis of right proximal femur fracture. She is lying in bed and appears comfortable. Her family including her daughter are with her in the room. She is giving a history of injury to her right hip following a fall in the bathroom at her home this morning. Following the injury she was able to get up and called EMS; she was brought to the ER where evaluation including x-rays showed a comminuted, displaced intertrochanteric fracture of the right femur with subtrochanteric extension. She was admitted for stabilization and management of the same. She denies any dizziness, headache, chest or neck pain. She also denies loss of consciousness, chest pain and shortness of breath. She lives by herself and is fairly mobile and independent. No history of any previous fractures or surgery. She has past history of type 2 diabetes mellitus, hypertension, hyperlipidemia, hypothyroidism, colon cancer, acute ischemic stroke April 2017, and CKD stage III. Hospital Course Hospital Course: Patient was admitted for management of her hip fracture. Orthopedics repaired her fracture. Postoperatively, patient was anemic and required a transfusion of PRBCs. Patient did have a low grade fever and some crackles on lung exam. CXR showed a minimal left sided infiltrate, so antibiotics were started and she improved. She has been working with physical therapy and doing well. Objective Vital signs: Temp Pulse Resp BP Pulse Ox 98.2 F 86 20 170/65 96 03/31/18 07:36 03/31/18 07:36 03/31/18 07:36 03/31/18 07:36 03/31/18 07:36 no acute distress - *Routine HEENT Exam Eye: Present: EOMI ENT: Present: mucous membranes moist - *Routine Neck Exam Present: supple, full ROM - *Routine Respiratory Exam Present: crackles (few, left more than right) - *Routine Cardiovascular Exam Present: RRR - *Routine Abdominal Exam Present: soft, normoactive bowel sounds. Absent: tenderness - *Routine Extremities Exam Absent: cyanosis, clubbing, edema - *Routine Skin Exam Present: intact, warm - *Routine Neurological Exam Present: alert, oriented X3 Results Labs on day of discharge: Labs from last 24 hours 03/31/18 03/31/18 03/31/18 06:25 06:25 05:48 WBC 10.7 RBC 2.91 L Hgb 8.9 L Hct 27.5 L MCV 94.4 MCH 30.4 MCHC 32.2 RDW 13.9 Plt Count 137 L D MPV 11.7 H Neut % (Auto) 74.1 Lymph % (Auto) 18.1 [place] % (Auto) 6.8 Eos % (Auto) 0.8 Baso % (Auto) 0.2 Neut # (Auto) 7.9 H Lymph # (Auto) 1.9 [place] # (Auto) 0.7 Eos # (Auto) 0.1 Baso # (Auto) 0.0 Sodium 139 Potassium 4.2 Chloride 107 Carbon Dioxide 28 Anion Gap 8.2 BUN 38 H Creatinine 1.17 H Estimated Creat Clear 45 Estimated GFR 44 L Est GFR ( Amer) 53 L Glucose 130 H POC Glucose 74 03/30/18 03/30/18 03/30/18 20:11 17:09 12:20 WBC RBC Hgb Hct MCV MCH MCHC RDW Plt Count MPV Neut % (Auto) Lymph % (Auto) [place] % (Auto) Eos % (Auto) Baso % (Auto) Neut # (Auto) Lymph # (Auto) [place] # (Auto) Eos # (Auto) Baso # (Auto) Sodium Potassium Chloride Carbon Dioxide Anion Gap BUN Creatinine Estimated Creat Clear Estimated GFR Est GFR ( Amer) Glucose POC Glucose 263 H 141 H 246 H DS: Diagnosis - Discharge Diagnosis (1) Femur fracture, right Status: Acute (2) Fall Status: Acute (3) HTN (hypertension) Status: Chronic (4) Heart murmur Status: Chronic (5) Renal insufficiency Status: Chronic (6) Type 2 diabetes mellitus Status: Chronic (7) Rales 1/[address] up posterior chest wall on left side Status: Acute (8) Anemia due to blood loss Status: Acute (9) Pneumonia Status: Acute Discharge Plan - Patient Discharge Instructions ACTIVITY: Continue current activity DIET: continue same diet Additional Instructions: Plan to check CBC in 1 week Patient Instructions: Pneumonia-Adult - Follow up Plan Follow up with: Nikko Lynch MD [Staff Physician] - 2 weeks Disposition: [facility] Home Medications: Home Medications Medication Instructions Recorded Confirmed Type Amlodipine Besylate [Norvasc 5mg 5 mg PO DAILY 03/26/18 03/26/18 History tablet] Atorvastatin Calcium [Atorvastatin 80 mg PO HS 03/26/18 03/26/18 History 80mg Tab] Clopidogrel Bisulfate [Plavix 75mg 75 mg PO DAILY 03/26/18 03/26/18 History Tab] Insulin NPH Hum/Reg Insulin Hm 20 unit SQ BID 03/26/18 03/26/18 History [Novolin 70-30 100 Unit/ml Vial] Levothyroxine Sodium 75 mcg PO DAILY 03/26/18 03/28/18 History [Levothyroxine 75mcg (0.075mg) Tab] Lisinopril [Lisinopril 10mg Tab] 10 mg PO DAILY 03/26/18 03/27/18 History Lisinopril/Hydrochlorothiazide 1 tab PO DAILY 03/26/18 03/28/18 History [Lisinopril-Hctz 20-12.5 mg Tab] Prescriptions/Medication Reconciliation: New Enoxaparin Sodium [Lovenox 30mg/0.3mL syringe] 30 mg SQ Q12 #0 syringe Insulin Glargine,Hum.rec.anlog [Insulin Glargine 100 Units/mL 3mL flexpen] 20 unit SQ HS insuln.pen Hydrocod/Acet 5/325 mg [[place] 5/325mg tablet] 1 - 2 tab PO Q4HP PRN #60 tab PRN Reason: Moderate To Severe Pain Cefdinir [Omnicef 300mg Capsule] 300 mg PO BID #14 cap Docusate Sodium [Docusate Sodium 100mg Cap] 100 mg PO BIDP PRN capsule PRN Reason: Constipation Insulin Lispro [HumaLOG 100 units/mL 3mL vial (SSI)] 0 unit SQ ACHS ml Azithromycin [Zithromax 500mg Tab Tri-Jasson] 500 mg PO DAILY #5 tab Continue Lisinopril [Lisinopril 10mg Tab] 10 mg PO DAILY Levothyroxine Sodium [Levothyroxine 75mcg (0.075mg) Tab] 75 mcg PO DAILY Clopidogrel Bisulfate [Plavix 75mg Tab] 75 mg PO DAILY Atorvastatin Calcium [Atorvastatin 80mg Tab] 80 mg PO HS Amlodipine Besylate [Norvasc 5mg tablet] 5 mg PO DAILY Discontinued Lisinopril/Hydrochlorothiazide [Lisinopril-Hctz 20-12.5 mg Tab] 1 tab PO DAILY Insulin NPH Hum/Reg Insulin Hm [Novolin 70-30 100 Unit/ml Vial] 20 unit SQ BID
--- NOTE | 2018-04-01 22:47 | Cardiology Report ---
PROCEDURE: 2-D M-mode and color Doppler study INDICATIONS FOR THE TEST: Chest pain COPD Heart Murmur Tobacco Smoking Palpitations Fatigue Syncope Edema HypertensionXDiabetes MellitusX Rheumatic Fever SOB MCMILLAN Obesity HyperlipidemiaX Family History HD Additional History FX HIP PREOP PATIENT INFORMATION HEIGHT: 67 WEIGHT:168 GENDER: Female B/P:159/57 2-D/M-MODE INTERPRETATION: 2-D MEASUREMENTS OBSERVED VALUES IN CMS Right Ventricular Dimension (RVDd) 1.5 Interventricular Septum (Thickness)(IVsd) 1.6 Left Ventricular Internal Dimensions(LVIDd) 3.5 Left Ventricular Posterior Wall (Thickness)(LVPWd) 1.5 Aortic Root 3.2 Aortic Cusp Separation 1.6 Left Atrial Dimensions (LAD) 3.2 2D 1. Left atrium is mildly enlarged, left ventricle is normal size, there is mild concentric left ventricular hypertrophy, there is hyperdynamic left ventricular systolic function, visually estimated ejection fraction was 65% with complete cavity obliteration. 2. The right atrium and right ventricle are normal size and contractility. 3. The aortic valve is thickened and calcified without significant distraction the leaflet mobility. 4. The mitral and tricuspid valve leaflets are minimally thickened. 5. The pulmonic valve is poorly visualized 6. No significant pericardial effusion noted. 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 Repeat study with better Doppler technique is recommended. Mild mitral and tricuspid regurgitation. Grade 1 diastolic dysfunction seen without tissue Doppler evidence of raised left atrial pressure. CONCLUSION: 1. Left atrium, normal left ventricular size, mild concentric left ventricular hypertrophy, hyperdynamic left ventricular systolic function, visually estimated ejection fraction over 65% with no obvious regional wall motion abnormality. 2. Thickened and calcified aortic valve without significant aortic stenosis aortic insufficiency, there is complete peaking velocities seen in the left ventricle outflow track likely secondary to dynamic obstruction, repeat study with better Doppler technique is recommended. 3. Mild mitral and tricuspid regurgitation. 4. No significant pericardial effusion noted.
== END 2018-03-31 11:30 ==
LOC: ER 10:23 → 2ND 13:14
PROVIDERS: ADMIT Family Medicine; ATTEND Family Medicine

== ENCOUNTER 2019-12-06 06:12 | Inpatient (IN) ==
[2019-12-06 06:52] LABS: Basophils # 0.1 K/mm3 (0-0.2); Basophils % 0.6 % (0.1-2.0); Eosinophils # 0.2 K/mm3 (0.0-0.4); Eosinophils % 1.5 % (0.1-12.0); Hematocrit 33.6 % (37.0-47.0); Hemoglobin 10.6 g/dL (12.2-16.2); Lymphocytes # 1.6 K/mm3 (0.7-4.5); Lymphocytes % 17.3 % (10-50); Mean Corpuscular HGB Conc 31.6 g/dL (31.8-35.4); Mean Platelet Volume 11.3 fl (7.4-10.4); Monocytes # 0.7 K/mm3 (0.1-1.0); Monocytes % 7.1 % (1.7-9.3); Neutrophils % 73.5 % (37.0-80.0); Platelet Count 186 K/mm3 (142-424); Red Blood Count 3.47 M/mm3 (4.20-5.40); Red Cell Distribution Width 14.2 % (11.5-17.5); White Blood Count 9.5 K/mm3 (4.8-10.8)
--- NOTE | 2019-12-06 07:05 | Emergency Department Note ---
ED Disposition Clinical Impression: Hypertensive emergency Congestive heart failure Qualifiers: Heart failure type: unspecified Heart failure chronicity: acute Qualified Code(s): I50.9 - Heart failure, unspecified Disposition: Admitted As Inpatient Condition on Discharge: Serious Referrals: Rubén Winkler MD [Primary Care Provider] - - Critical Care Critical Care Time: Yes Attestation: On 12/06/19, the high probability of a clinically significant, sudden or life threatening deterioration of the following system(s) required my full and direct attention, intervention and personal management. The time I documented below is in addition to time spent performing reported procedures but includes the following listed in this critical care notation. Vital system(s) involved:: Circulatory Failure My critical care processes included: Assessment & monitoring of V/S, Initial and Re-exams, Data Review/Interpretation, Coordinating Care, Medication Orders and management, Documentation Medical Decision Making - Shahab Inquiry Pt receiving controlled substance: No Vital Signs: 12/06/19 06:13 12/06/19 06:50 12/06/19 06:56 Temperature 98.3 F Temperature Source Oral Pulse Rate [Right] 93 H 92 H Respiratory Rate 24 18 22 Blood Pressure [Right Arm] 230/116 H 227/97 H Blood Pressure Mean [Right Arm] 154 140 Blood Pressure Source [Right Arm] Automatic Cuff Blood Pressure Position [Right Arm] Supine 02 Sat by Pulse Oximetry 90 L 92 L 96 Oxygen Delivery Method Room Air Room Air Nasal Cannula Oxygen Flow Rate (LPM) 2 12/06/19 08:01 Temperature Temperature Source Pulse Rate [Right] 85 Respiratory Rate Blood Pressure [Right Arm] 188/86 H Blood Pressure Mean [Right Arm] 120 Blood Pressure Source [Right Arm] Manual Cuff/ Auscultation Blood Pressure Position [Right Arm] Sitting 02 Sat by Pulse Oximetry 97 Oxygen Delivery Method Oxygen Flow Rate (LPM) - Lab Data Lab Results 12/06/19 06:30: WBC 9.5, RBC 3.47 L, Hgb 10.6 L, Hct 33.6 L, MCV 97.0, MCH 30.6, MCHC 31.6 L, RDW 14.2, Plt Count 186, MPV 11.3 H, Neut % (Auto) 73.5, Lymph % (Auto) 17.3, [place] % (Auto) 7.1, Eos % (Auto) 1.5, Baso % (Auto) 0.6, Neut # (Aut o) 7.0, Lymph # (Auto) 1.6, [place] # (Auto) 0.7, Eos # (Auto) 0.2, Baso # (Auto) 0.1 12/06/19 06:30: B-Natriuretic Peptide 725 H 12/06/19 07:15: Sodium 138, Potassium 3.3 L, Chloride 102, Carbon Dioxide 28, Anion Gap 11.3, BUN 15, Creatinine 1.25 H, Estimated Creat Clear 35, Estimated GFR 41 L, Est GFR ( Amer) 49 L, Glucose 177 H, Calcium 8.0 L, Total Bilirubin 0.7, AST 20, ALT 16, Alkaline Phosphatase 81, Total Protein 5.5 L, Albumin 2.4 L, Globulin 3.1, Albumin/Globulin Ratio 0.8 L 12/06/19 07:15: Troponin I < 0.02 Result diagrams: 12/06/19 06:30 12/06/19 07:15 Orders (Tests/Meds): ED MEDICATIONS Generic Name Dose Route Start Last Admin Trade Name Freq PRN Reason Stop Dose Admin Nitroglycerin/Dextrose 250 mls @ 1.5 mls/hr 12/06/19 07:45 12/06/19 07:53 Nitroglycerin 50mg/250ml D5w IV 01/05/20 07:44 5 mcg/min .Q24H JUDY 1.5 mls/hr Administration Protocol 5 MCG/MIN Lisinopril 10 mg 12/06/19 09:00 Zestril 10mg Tablet PO 01/05/20 08:59 DAILY JUDY Discontinued Medications Generic Name Dose Route Start Last Admin Trade Name Freq PRN Reason Stop Dose Admin Amlodipine Besylate 5 mg 12/06/19 07:43 12/06/19 07:52 Norvasc 5mg Tablet PO 12/06/19 07:44 5 mg ONCE ONE Administration Furosemide 40 mg 12/06/19 07:45 12/06/19 07:53 Lasix 40mg/4ml Vial IV 12/06/19 07:46 40 mg ONCE ONE Administration Potassium Chloride 40 meq 12/06/19 07:57 Klor-Con 20meq Tablet PO 12/06/19 07:58 ONCE ONE ORDERS Category Date Time Status Lactic Acid Stat Lab 12/06/19 07:12 Ordered Troponin I Q3H Lab 12/06/19 10:15 Ordered Troponin I Q3H Lab 12/06/19 13:15 Ordered Blood Culture Stat Micro 12/06/19 07:12 Ordered - ECG Data Tracing #1 EKG interpreted by Sachin Walter MD: Rhythm: sinus Rate: 85 [place]: normal Ectopy: none Conduction: First-degree AV block ST Segment Changes: Nonspecific, lateral T Wave Changes: Nonspecific, lateral Q Waves: none Poor R wave progression Prior electrocardiagrams reviewed. No change from prior tracings. - Physician Consults Physician Consulted: Peterson Time: 08:04 Reason -: Admission Comment/Response: Agrees to admit the patient to the hospital. We discussed the patient's clinical information, including history, exam, laboratory and radiology results and ED course. Per hospital procedure, I will write temporary bridge inpatient orders on the patient. Specific orders requested by the admitting physician: No antibiotics at this time. Continue nitroglycerin drip. Admit to stepdown. Echocardiogram. Medical Decision Narrative: Feels much better on oxygen and after nebulizer treatment. Symptoms seem most likely related to congestive heart failure given clinical findings. Pneumonia seems less likely. She does not have any known diagnosis of COPD. She has no wheezing on my examination. General Adult HPI - General Chief complaint: Shortness of Breath/Dyspnea Stated complaint: SOA Time Seen by Provider: 12/06/19 07:04 Mode of Arrival: Ambulatory Limitations: No Limitations Description of Symptoms (Recalled from ER Triage Doc. by RN): Pt states she become SOA tonight and was unable to catch her breath. - History of Present Illness HPI narrative: Complains of shortness of breath. Says that she has been short of breath for couple of days, but tonight it became severe. Unable to sleep all night. She says her shortness of breath has been worse trying to lay down at night, better during the day. She has dyspnea on exertion and paroxysmal nocturnal dyspnea as well. She has had some swelling of her ankles for the past couple of weeks. Improves when she elevates her legs. Denies chest pain. Denies cough, but says that she has had some postnasal drip. No fevers. No previous similar symptoms. No history of heart problems, congestive heart failure, or lung problems. She was a smoker many many years ago, she does not have emphysema or COPD. - Related Data Home Medications Medication Instructions Recorded Confirmed Amlodipine Besylate [Norvasc 5mg 5 mg PO DAILY 03/26/18 12/06/19 tablet] Atorvastatin Calcium [Atorvastatin 80 mg PO HS 03/26/18 12/06/19 80mg Tab] Levothyroxine Sodium 75 mcg PO DAILY 03/26/18 12/06/19 [Levothyroxine 75mcg (0.075mg) Tab] lisinopril 10 mg tablet 10 mg PO DAILY tab 08/01/18 12/06/19 Insulin Lispro [HumaLOG 100 0 unit SQ ACHS 11/28/18 12/06/19 units/mL 3mL vial (SSI)] Allergies Allergy/AdvReac Type Severity Reaction Status Date / Time rosuvastatin [From [facility]] Allergy Mild Verified 05/08/19 13:48 [facility] History - Hepatitis A Screen Drug use history?: No High risk sexual behaviors?: No History of sexually transmitted infection?: No Currently employed?: No Childcare worker?: No Do you have indoor plumbing?: Yes Do you have electricity?: Yes Attestation statement:: This patient has been screened for Hepatitis A risk factors. I have reviewed the patient's past medical history: Yes Medical History: Reports:: Cancer, Cerebrovascular Accident, Diabetes Mellitus Type 2, Hypertension Denies:: Home Oxygen, Seizures Other Medical History: Reports: Hypothyroidism Laterality Cases: Right: Other Comment: Right hemicolectomy 08/02/2011 - Social History Smoking Status: Never smoker Alcohol Intake: never Occupational Status: retired Family Hx:: Diabetes ROS Obtained: Yes All systems reviewed & no additional complaints - Constitutional Constitutional: Denies fever(s) - ENT Ears, Nose, Mouth, and Throat: Reports post nasal drip, Denies sore throat - Cardiovascular Cardiovascular: Denies chest pain, Reports dyspnea on exertion, Reports leg edema, Reports shortness of breath when lying down - Respiratory Respiratory: No cough, Yes dyspnea - Gastrointestinal Gastrointestingal: Denies: abdominal pain, diarrhea, vomiting Physical Exam - General General appearance: alert, in no apparent distress - Head Head exam: atraumatic, normocephalic - Eye Eye exam: Present: normal appearance, EOMI - ENT ENT exam: Present: mucous membranes moist - Neck Neck exam: Present: normal inspection, trachea midline - Chest Chest inspection: Present: normal inspection, symmetric chest wall rise - Respiratory Respiratory exam: Present: other (Crackles in the bases bilaterally) - Cardiovascular Cardiovascular exam: Present: regular rate, normal rhythm, normal heart sounds - Abdominal Exam Abdominal exam: Present: soft, normal bowel sounds. Absent: distention, tenderness - Extremities Exam Extremities exam: Present: normal capillary refill, other (Trace pitting ankle edema bilaterally) - Neurological Exam Neurological exam: Present: alert, oriented X3 - Psychiatric Psychiatric exam: Present: normal affect - Skin Skin exam: Present: warm, dry. Absent: diaphoresis
[2019-12-06 07:50] LABS: Albumin Level 2.4 gm/dL (3.4-5.0); Albumin/Globulin Ratio 0.8 (1.1-1.8); Anion Gap 11.3 mEq/L (5-15); Bilirubin,Total 0.7 mg/dL (0.2-1.0); Globulin 3.1 gm/dl (1.3-3.2); Total Protein,Serum 5.5 gm/dL (6.4-8.2)
--- NOTE | 2019-12-06 09:47 | History & Physical Report ---
*Admission Date: 12/06/19 <Charo Avery 12/06/19 09:47> *Chief complaint: SOA <Charo Avery 12/06/19 11:26> *History of present illness: Ms. eBy is an 84-year-old female with a history of colon cancer, CVA, diabetes, CKD, hypertension and hypothyroidism who began feeling poorly approximately a week ago. She states she was having nasal congestion and some wheezing. Over the past few days she has been getting progressively more short of breath. She is also having some lower extremity edema. This morning she was unable to lay down without being short of breath and therefore presented to the emergency room. She had a chest x-ray showing chronic changes with a superimposed bibasilar airspace disease. Her white blood cell count was normal but her BNP was elevated. It was felt she had some degree of heart failure, therefore she was given a dose of Lasix. She states she has urinated quite a lot and her shortness of breath has improved. She will be admitted for further evaluation and treatment. <Charo Avery 12/06/19 11:26> [facility] History I have reviewed the patient's past medical history: Yes <Charo Avery 12/06/19 11:26> Medical History: Reports:: Cancer (colon), Cerebrovascular Accident, Diabetes Mellitus Type 2, Hyperlipidemia, Hypertension, Renal Insufficiency Denies:: Home Oxygen, Seizures <Charo Avery 12/06/19 11:26> *Have you ever received a pneumonia vaccine?: No <Charo Avery 12/06/19 09:47> *Have you received a flu vaccine this season?: No <Charo Avery 12/06/19 09:47> Other Medical History: Reports: Hypothyroidism <Charo Avery 12/06/19 09:47> Laterality Cases: Right: Other (Right hemicolectomy, right hip repair) <Charo Avery 12/06/19 11:26> Other Surgeries: Yes: Colonoscopy <Charo Avery 12/06/19 11:26> - *Social History Smoking Status: Never smoker <Charo Avery 12/06/19 09:47> Alcohol Intake: never <Charo Avery 12/06/19 09:47> *Occupational Status:: retired <Charo Avery 12/06/19 09:47> *Travel in the last 8 weeks: None <Charo Avery 12/06/19 09:47> Family Hx:: Diabetes <Charo Avery 12/06/19 09:47> Review of Systems - Constitutional Reports fatigue, Reports weakness, Denies chills, Denies fever(s) <Charo Avery 12/06/19 11:26> - Eyes Denies blurry vision, Denies double vision <Charo Avery 12/06/19 11:26> - ENT Reports nasal congestion, Reports sore throat <Charo Avery 12/06/19 11:26> - *Cardiovascular Reports shortness of breath, Reports leg swelling, Reports shortness of breath when lying down, Denies chest pain, Denies rapid, pounding, or irregular heartbeat <Charo Avery 12/06/19 11:26> - *Respiratory Reports chest congestion, Reports cough, Reports shortness of breath <Charo Avery 12/06/19 11:26> - *Gastrointestinal Denies abdominal pain, Denies loose stools, Denies nausea, Denies vomiting <Charo Avery 12/06/19 11:26> - *Genitourinary Denies difficulty urinating, Denies painful urination <Charo Avery 12/06/19 11:26> - *Musculoskeletal Denies joint pain, Denies body aches <Charo Avery 12/06/19 11:26> - *Neurologic Reports weakness, Denies headache(s), Denies dizziness <Charo Avery 12/06/19 11:26> Meds Home Medications Medication Instructions Recorded Confirmed Type Amlodipine Besylate [Norvasc 5mg 5 mg PO DAILY 03/26/18 12/06/19 History tablet] Atorvastatin Calcium [Atorvastatin 80 mg PO HS 03/26/18 12/06/19 History 80mg Tab] Levothyroxine Sodium 75 mcg PO DAILY 03/26/18 12/06/19 History [Levothyroxine 75mcg (0.075mg) Tab] lisinopril 10 mg tablet 10 mg PO DAILY tab 08/01/18 12/06/19 History Insulin Lispro [HumaLOG 100 0 unit SQ ACHS 11/28/18 12/06/19 History units/mL 3mL vial (SSI)] <Rubén Winkler - 12/06/19 12:13> Allergies Allergy/AdvReac Type Severity Reaction Status Date / Time rosuvastatin [From CRESTOR] Allergy Mild Verified 05/08/19 13:48 <Rubén Winkler - 12/06/19 12:13> Exam Vital signs and Labs for Last 24 Hours: Temp Pulse Resp BP Pulse Ox 98.1 F 85 16 170/106 H 98 12/06/19 09:13 12/06/19 09:13 12/06/19 09:13 12/06/19 09:13 12/06/19 09:13 Laboratory Results - last 24 hr 12/06/19 06:30: WBC 9.5, RBC 3.47 L, Hgb 10.6 L, Hct 33.6 L, MCV 97.0, MCH 30.6, MCHC 31.6 L, RDW 14.2, Plt Count 186, MPV 11.3 H, Neut % (Auto) 73.5, Lymph % (Auto) 17.3, Moore % (Auto) 7.1, Eos % (Auto) 1.5, Baso % (Auto) 0.6, Neut # (Auto) 7.0, Lymph # (Auto) 1.6, Moore # (Auto) 0.7, Eos # (Auto) 0.2, Baso # (Auto) 0.1 12/06/19 06:30: B-Natriuretic Peptide 725 H 12/06/19 07:15: Sodium 138, Potassium 3.3 L, Chloride 102, Carbon Dioxide 28, Anion Gap 11.3, BUN 15, Creatinine 1.25 H, Estimated Creat Clear 35, Estimated GFR 41 L, Est GFR ( Amer) 49 L, Glucose 177 H, Calcium 8.0 L, Total Bilir ubin 0.7, AST 20, ALT 16, Alkaline Phosphatase 81, Total Protein 5.5 L, Albumin 2.4 L, Globulin 3.1, Albumin/Globulin Ratio 0.8 L 12/06/19 07:15: Troponin I < 0.02 12/06/19 11:00: Troponin I 0.03 12/06/19 11:00: Lactate 1.2 12/06/19 11:41: POC Glucose 300 H <Rubén Winkler - 12/06/19 12:13> Temp Pulse Resp BP Pulse Ox 98.1 F 85 16 170/106 H 98 12/06/19 09:13 12/06/19 09:13 12/06/19 09:13 12/06/19 09:13 12/06/19 09:13 Laboratory Results - last 24 hr 12/06/19 06:30: WBC 9.5, RBC 3.47 L, Hgb 10.6 L, Hct 33.6 L, MCV 97.0, MCH 30.6, MCHC 31.6 L, RDW 14.2, Plt Count 186, MPV 11.3 H, Neut % (Auto) 73.5, Lymph % (Auto) 17.3, Moore % (Auto) 7.1, Eos % (Auto) 1.5, Baso % (Auto) 0.6, Neut # (Auto) 7.0, Lymph # (Auto) 1.6, Moore # (Auto) 0.7, Eos # (Auto) 0.2, Baso # (Auto) 0.1 12/06/19 06:30: B-Natriuretic Peptide 725 H 12/06/19 07:15: Sodium 138, Potassium 3.3 L, Chloride 102, Carbon Dioxide 28, Anion Gap 11.3, BUN 15, Creatinine 1.25 H, Estimated Creat Clear 35, Estimated GFR 41 L, Est GFR ( Amer) 49 L, Glucose 177 H, Calcium 8.0 L, Total Bilirubin 0.7, AST 20, ALT 16, Alkaline Phosphatase 81, Total Protein 5.5 L, Albumin 2.4 L, Globulin 3.1, Albumin/Globulin Ratio 0.8 L 12/06/19 07:15: Troponin I < 0.02 <Charo Avery - 12/06/19 09:47> I & O for Last 24 hours: Intake & Output 12/03/19 12/04/19 12/05/19 12/06/19 23:59 23:59 23:59 23:59 Weight 158 lb 7 oz <Rubén Winkler - 12/06/19 12:13> Intake & Output 12/03/19 12/04/19 12/05/19 12/06/19 11:59 11:59 11:59 11:59 Weight 150 lb <Charo Avery 12/06/19 09:47> - Constitutional no acute distress <Charo Avery 12/06/19 11:26> - *Routine HEENT Exam Head: Present: normocephalic <Charo Avery 12/06/19 11:26> Eye: Present: EOMI, PERRL <Corey Averya 12/06/19 11:26> ENT: Present: mucous membranes dry <Corey Averya 12/06/19 11:26> - *Routine Neck Exam Present: supple. Absent: lymphadenopathy <Corey Averya 12/06/19 11:26> - *Routine Respiratory Exam Present: rales (faint basilar rales), wheezes (faint) <Corey Averya 12/06/19 11:26> - *Routine Cardiovascular Exam Present: RRR <Corey Averya 12/06/19 11:26> - *Routine Abdominal Exam Present: soft, normoactive bowel sounds. Absent: tenderness [facility] - *Routine Extremities Exam Absent: cyanosis, clubbing, edema <Corey Averya 12/06/19 11:26> - *Routine Skin Exam Present: warm. Absent: rash [facility] 11[facility]26> - *Routine Neurological Exam Present: alert, oriented X3 <Corey Averya 12/06/19 11:26> H&P: Result - Impressions CXR - Chronic changes with superimposed bibasilar airspace disease <Corey Averya 12/06/19 11:26> Assessment and Plan (1) Congestive heart failure Current visit: Yes Status: Acute Qualifiers: Heart failure type: unspecified Heart failure chronicity: acute Qualified Code(s): I50.9 - Heart failure, unspecified Category: Medical Code(s): I50.9 - Heart failure, unspecified (2) Hypokalemia Current visit: Yes Status: Acute Category: Medical Code(s): E87.6 - Hypokalemia (3) Hypertensive emergency Current visit: Yes Status: Acute Category: Medical Code(s): I16.1 - Hypertensive emergency (4) HTN (hypertension) Current visit: No Status: Chronic Category: Medical Code(s): I10 - Essential (primary) hypertension (5) Renal insufficiency Current visit: No Status: Chronic Category: Medical Code(s): N28.9 - Disorder of kidney and ureter, unspecified (6) Type 2 diabetes mellitus Current visit: No Status: Chronic Category: Medical Code(s): E11.9 - Type 2 diabetes mellitus without complications (7) Hyperlipidemia Current visit: Yes Status: Acute Category: Medical Code(s): E78.5 - Hyperlipidemia, unspecified (8) Hypothyroidism Current visit: Yes Status: Acute Category: Medical Code(s): E03.9 - Hypothyroidism, unspecified (9) History of CVA (cerebrovascular accident) Current visit: Yes Status: Acute Category: Medical Code(s): Z86.73 - Personal history of transient ischemic attack (TIA), and cerebral infarction without residual deficits <Rubén Winkler - 12/06/19 12:13> (1) Congestive heart failure Current visit: Yes Status: Acute Qualifiers: Heart failure type: unspecified Heart failure chronicity: acute Qualified Code(s): I50.9 - Heart failure, unspecified Category: Medical Code(s): I50.9 - Heart failure, unspecified (2) Hypokalemia Current visit: Yes Status: Acute Category: Medical Code(s): E87.6 - Hypokalemia (3) Hypertensive emergency Current visit: Yes Status: Acute Category: Medical Code(s): I16.1 - Hypertensive emergency (4) HTN (hypertension) Current visit: No Status: Chronic Category: Medical Code(s): I10 - Essential (primary) hypertension (5) Renal insufficiency Current visit: No Status: Chronic Category: Medical Code(s): N28.9 - Disorder of kidney and ureter, unspecified (6) Type 2 diabetes mellitus Current visit: No Status: Chronic Category: Medical Code(s): E11.9 - Type 2 diabetes mellitus without complications (7) Hyperlipidemia Current visit: Yes Status: Acute Category: Medical Code(s): E78.5 - Hyperlipidemia, unspecified (8) Hypothyroidism Current visit: Yes Status: Acute Category: Medical Code(s): E03.9 - Hypothyroidism, unspecified (9) History of CVA (cerebrovascular accident) Current visit: Yes Status: Acute Category: Medical Code(s): Z86.73 - Personal history of transient ischemic attack (TIA), and cerebral infarction without residual deficits <Charo Avery - 12/06/19 10:39> - Assessment and plan all Dx Assessment and Plan for all problems:: Saw patient, agree with above note. NTG has been titrated up and BP is lower now. Pt is much more comfortable. Await echo report. <Rubén Winkler - 12/06/19 12:13> Patient has been started on a nitro drip and BP is improving. She was given lasix and already feels less SOA. An echo has been ordered. Will discuss further care with Dr. Winkler. <Charo Avery - 12/06/19 11:26>
--- NOTE | 2019-12-06 14:19 | Electrocardiograph Report ---
APPROVED REPORT Exam: Resting ECG HR:85 bpm ECG Measurements Heart Rate 85 AXES AK 276 P 79 QRSd 94 QRS -19 QT 394 T100 QTc 468 <Conclusion> Sinus rhythm with 1st degree AV block Possible Left atrial enlargement Possible Anteroseptal infarct, age undetermined T wave abnormality, consider lateral ischemia Abnormal ECG Electronically signed by : Irineo Roth, 12/06/2019 14:18:54
[2019-12-07 06:22] LABS: Basophils % 0.4 % (0.1-2.0); Eosinophils # 0.1 K/mm3 (0.0-0.4); Eosinophils % 1.2 % (0.1-12.0); Hematocrit 33.6 % (37.0-47.0); Hemoglobin 10.5 g/dL (12.2-16.2); Lymphocytes # 1.9 K/mm3 (0.7-4.5); Lymphocytes % 24.5 % (10-50); Mean Corpuscular HGB Conc 31.3 g/dL (31.8-35.4); Mean Corpuscular Volume 98.6 fl (81-99); Mean Platelet Volume 11.7 fl (7.4-10.4); Monocytes # 0.6 K/mm3 (0.1-1.0); Monocytes % 7.5 % (1.7-9.3); Neutrophils # 5.2 K/mm3 (1.8-7.8); Neutrophils % 66.4 % (37.0-80.0); Platelet Count 183 K/mm3 (142-424); Red Blood Count 3.41 M/mm3 (4.20-5.40); Red Cell Distribution Width 13.9 % (11.5-17.5); White Blood Count 7.8 K/mm3 (4.8-10.8)
[2019-12-07 06:33] LABS: Anion Gap 10.6 mEq/L (5-15); Calcium 8.4 mg/dL (8.5-10.1)
--- NOTE | 2019-12-07 08:46 | Progress Note ---
Internal Medicine - PN: Subj *Date: 12/07/19 *Time: 08:43 Interval history: Patient states she feels much better this morning. She did have some diarrhea overnight. She was weaned off of the NTG drip yesterday afternoon. Blood sugar was low this morning. Exam Vital signs and Labs for Last 24 Hours: Temp Pulse Resp BP Pulse Ox 97.8 F 79 20 172/71 H 94 L 12/07/19 04:00 12/07/19 07:00 12/07/19 07:00 12/07/19 07:00 12/07/19 08:00 Laboratory Results - last 24 hr 12/06/19 11:00: Troponin I 0.03 12/06/19 11:00: Lactate 1.2 12/06/19 11:41: POC Glucose 300 H 12/06/19 12:41: Troponin I 0.03 12/06/19 17:02: POC Glucose 85 12/06/19 20:31: POC Glucose 209 H 12/07/19 05:30: WBC 7.8, RBC 3.41 L, Hgb 10.5 L, Hct 33.6 L, MCV 98.6, MCH 30.9, MCHC 31.3 L, RDW 13.9, Plt Count 183, MPV 11.7 H, Neut % (Auto) 66.4, Lymph % (Auto) 24.5, Barber % (Auto) 7.5, Eos % (Auto) 1.2, Baso % (Auto) 0.4, Neut # (Auto) 5.2, Lymph # (Auto) 1.9, Barber # (Auto) 0.6, Eos # (Auto) 0.1, Baso # (Auto) 0.0 12/07/19 05:30: Sodium 142, Potassium 3.6, Chloride 103, Carbon Dioxide 32, Anion Gap 10.6, BUN 22 H D, Creatinine 1.40 H, Estimated Creat Clear 32, Estimated GFR 36 L, Est GFR ( Amer) 43 L, Glucose 49 L D, Calcium 8.4 L 12/07/19 06:14: POC Glucose 70 12/07/19 06:36: POC Glucose 118 H Vital Signs - 24 hr 12/06/19 08:50 12/06/19 09:13 12/06/19 09:20 Temperature 98.2 F 98.1 F Pulse Rate 89 Pulse Rate [Right] 85 86 Respiratory Rate 16 16 16 Blood Pressure 199/92 H Blood Pressure [Right Arm] 170/106 H 156/117 H 02 Sat by Pulse Oximetry 98 98 12/06/19 09:30 12/06/19 10:00 12/06/19 10:30 Temperature Pulse Rate Pulse Rate [Right] 94 H 87 92 H Respiratory Rate 18 16 18 Blood Pressure Blood Pressure [Right Arm] 205/108 H 174/107 H 173/109 H 02 Sat by Pulse Oximetry 97 98 97 12/06/19 11:00 12/06/19 11:30 12/06/19 12:00 Temperature Pulse Rate 90 Pulse Rate [Right] 84 90 92 H Respiratory Rate 18 16 16 Blood Pressure Blood Pressure [Right Arm] 194/77 H 212/100 H 177/100 H 02 Sat by Pulse Oximetry 98 97 95 12/06/19 12:30 12/06/19 13:00 12/06/19 13:30 Temperature Pulse Rate Pulse Rate [Right] 95 H 90 84 Respiratory Rate 16 17 16 Blood Pressure Blood Pressure [Right Arm] 207/98 H 200/86 H 191/76 H 02 Sat by Pulse Oximetry 98 98 92 L 12/06/19 14:00 12/06/19 14:30 12/06/19 15:00 Temperature Pulse Rate Pulse Rate [Right] 82 77 73 Respiratory Rate 18 18 16 Blood Pressure Blood Pressure [Right Arm] 161/67 H 131/68 140/63 02 Sat by Pulse Oximetry 94 L 92 L 92 L 12/06/19 15:30 12/06/19 16:00 12/06/19 16:30 Temperature Pulse Rate 70 Pulse Rate [Right] 69 70 73 Respiratory Rate 17 17 16 Blood Pressure Blood Pressure [Right Arm] 150/57 H 152/59 H 137/86 02 Sat by Pulse Oximetry 95 95 95 12/06/19 17:00 12/06/19 17:30 12/06/19 18:00 Temperature Pulse Rate Pulse Rate [Right] 69 76 80 Respiratory Rate 17 17 17 Blood Pressure Blood Pressure [Right Arm] 149/62 H 158/68 H 160/84 H 02 Sat by Pulse Oximetry 94 L 96 96 12/06/19 18:30 12/06/19 19:00 12/06/19 19:58 Temperature Pulse Rate Pulse Rate [Right] 74 73 Respiratory Rate 16 16 Blood Pressure Blood Pressure [Right Arm] 138/61 139/45 L 02 Sat by Pulse Oximetry 96 94 L 86 L 12/06/19 20:00 12/06/19 22:00 12/06/19 23:37 Temperature 97.7 F Pulse Rate 60 Pulse Rate [Right] 69 72 Respiratory Rate 18 18 Blood Pressure Blood Pressure [Right Arm] 155/61 H 150/71 H 02 Sat by Pulse Oximetry 98 96 92 L 12/07/19 00:00 12/07/19 02:00 12/07/19 04:00 Temperature 97.9 F 97.8 F Pulse Rate 60 60 Pulse Rate [Right] 66 61 55 L Respiratory Rate 20 18 16 Blood Pressure Blood Pressure [Right Arm] 136/50 L 135/51 L 158/54 H 02 Sat by Pulse Oximetry 98 96 98 12/07/19 06:00 12/07/19 07:00 12/07/19 08:00 Temperature Pulse Rate Pulse Rate [Right] 74 79 Respiratory Rate 20 20 Blood Pressure Blood Pressure [Right Arm] 188/75 H 172/71 H 02 Sat by Pulse Oximetry 99 94 L 94 L I & O for Last 24 hours: Intake & Output 12/04/19 12/05/19 12/06/19 12/07/19 23:59 23:59 23:59 23:59 Intake Total 14 / 134 120 / 120 Balance 14 / 134 120 / 120 Weight 158 lb 7 oz 157 lb 5 oz - Constitutional no acute distress - *Routine HEENT Exam Head: Present: normocephalic Eye: Present: EOMI ENT: Present: mucous membranes moist - *Routine Neck Exam Present: supple. Absent: lymphadenopathy - *Routine Respiratory Exam Present: CTA bilaterally - *Routine Cardiovascular Exam Present: RRR - *Routine Abdominal Exam Present: soft, normoactive bowel sounds. Absent: tenderness - *Routine Extremities Exam Absent: cyanosis, clubbing, edema - *Routine Skin Exam Present: warm. Absent: rash - *Routine Neurological Exam Present: alert, oriented X3 Assessment and Plan (1) Congestive heart failure Current visit: Yes Status: Acute Qualifiers: Heart failure type: unspecified Heart failure chronicity: acute Qualified Code(s): I50.9 - Heart failure, unspecified Category: Medical Code(s): I50.9 - Heart failure, unspecified (2) Hypokalemia Current visit: Yes Status: Acute Category: Medical Code(s): E87.6 - Hypokalemia (3) Hypertensive emergency Current visit: Yes Status: Acute Category: Medical Code(s): I16.1 - Hypertensive emergency (4) HTN (hypertension) Current visit: No Status: Chronic Category: Medical Code(s): I10 - Essential (primary) hypertension (5) Renal insufficiency Current visit: No Status: Chronic Category: Medical Code(s): N28.9 - Disorder of kidney and ureter, unspecified (6) Type 2 diabetes mellitus Current visit: No Status: Chronic Category: Medical Code(s): E11.9 - Type 2 diabetes mellitus without complications (7) Hyperlipidemia Current visit: Yes Status: Acute Category: Medical Code(s): E78.5 - Hyperlipidemia, unspecified (8) Hypothyroidism Current visit: Yes Status: Acute Category: Medical Code(s): E03.9 - Hypothyroidism, unspecified (9) History of CVA (cerebrovascular accident) Current visit: Yes Status: Acute Category: Medical Code(s): Z86.73 - Personal history of transient ischemic attack (TIA), and cerebral infarction without residual deficits - Assessment and plan all Dx Assessment and Plan for all problems:: Patient has improved. Plan to move out of step down today, decrease Lantus dose and await echo report.
--- NOTE | 2019-12-07 11:56 | Pharmacy Consult Notes ---
[facility] Pharmacy VTE Monitoring - Patient Demographics Admission date: 12/07/19 Report Date: 12/07/19 Time: 11:55 Allergies/Adverse Reactions: Patient Allergies rosuvastatin [From CRESTOR] Allergy (Mild, Verified 05/08/19 13:48) Height: 1.7 m Weight: 71.356 kg Patient Problems: Current Active Problems Congestive heart failure (Acute) Hypertensive emergency (Acute) Hypokalemia (Acute) Hyperlipidemia (Acute) Hypothyroidism (Acute) History of CVA (cerebrovascular accident) (Acute) - VTE Risk Labs: VTE Related Lab Results Hgb 10.5 g/dL (12.2-16.2) L 12/07/19 05:30 Hct 33.6 % (37.0-47.0) L 12/07/19 05:30 Plt Count 183 K/mm3 (142-424) 12/07/19 05:30 BUN 22 mg/dL (7-18) H D 12/07/19 05:30 Creatinine 1.40 mg/dL (0.55-1.02) H 12/07/19 05:30 Estimated Creat Clear 32 mL/min (50-200) 12/07/19 05:30 Was VTE Risk Assessment Performed: Yes VTE Score: 1 VTE Risk Level: Very Low Risk - Prophylaxis Types of VTE Prophylaxis: TEDS Knee High (MAURISIO HOSE ORDERED)
--- NOTE | 2019-12-08 08:34 | Progress Note ---
<Edna Virgen - Last Filed: 12/08/19 08:51> Internal Medicine - PN: Subj *Date: 12/08/19 *Time: 08:51 Interval history: Patient states she is breathing well. She has not required oxygen throughout the night and this a.m. She denies chest pain. She is eating well. She is voiding without difficulties. Echocardiogram reveals left ventricular ejection fraction of 35 to 40%; pleural effusion. Blood sugar noted to be 66 in the early a.m. She was given orange juice with return of blood sugar to normal. Exam Vital signs and Labs for Last 24 Hours: Temp Pulse Resp BP Pulse Ox 98.2 F 77 18 166/70 H 95 12/08/19 04:00 12/08/19 04:00 12/08/19 04:00 12/08/19 04:00 12/08/19 04:00 Laboratory Results - last 24 hr 12/07/19 11:51: POC Glucose 241 H 12/07/19 16:17: POC Glucose 118 H 12/07/19 20:31: POC Glucose 91 12/08/19 03:04: POC Glucose 116 H 12/08/19 05:45: POC Glucose 75 I & O for Last 24 hours: Intake & Output 12/05/19 12/06/19 12/07/19 12/08/19 11:59 11:59 11:59 11:59 Intake Total 134 / 134 240 / 240 Balance 134 / 134 240 / 240 Weight 158 lb 7 oz 157 lb 5 oz 160 lb 2 oz - Constitutional no acute distress Comments: Sitting on bedside and appears comfortable. - *Routine Respiratory Exam Comments: Basilar crackles on the right; diminished air sounds in the left base. - *Routine Cardiovascular Exam Present: RRR - *Routine Abdominal Exam Present: soft, normoactive bowel sounds. Absent: tenderness - *Routine Extremities Exam Absent: edema, calf tenderness - *Routine Neurological Exam Present: alert, oriented X3 Assessment and Plan (1) Congestive heart failure Current visit: Yes Status: Acute Qualifiers: Heart failure type: unspecified Heart failure chronicity: acute Qualified Code(s): I50.9 - Heart failure, unspecified Category: Medical Code(s): I50.9 - Heart failure, unspecified (2) Hypokalemia Current visit: Yes Status: Acute Category: Medical Code(s): E87.6 - Hypokalemia (3) Hypertensive emergency Current visit: Yes Status: Acute Category: Medical Code(s): I16.1 - Hypertensive emergency (4) HTN (hypertension) Current visit: No Status: Chronic Category: Medical Code(s): I10 - Essential (primary) hypertension (5) Renal insufficiency Current visit: No Status: Chronic Category: Medical Code(s): N28.9 - Disorder of kidney and ureter, unspecified (6) Type 2 diabetes mellitus Current visit: No Status: Chronic Category: Medical Code(s): E11.9 - Type 2 diabetes mellitus without complications (7) Hyperlipidemia Current visit: Yes Status: Acute Category: Medical Code(s): E78.5 - Hyperlipidemia, unspecified (8) Hypothyroidism Current visit: Yes Status: Acute Category: Medical Code(s): E03.9 - Hypothyroidism, unspecified (9) History of CVA (cerebrovascular accident) Current visit: Yes Status: Acute Category: Medical Code(s): Z86.73 - Personal history of transient ischemic attack (TIA), and cerebral infarction without residual deficits (10) Hypoglycemia Current visit: Yes Status: Acute Category: Medical Code(s): E16.2 - Hypoglycemia, unspecified - Assessment and plan all Dx Assessment and Plan for all problems:: Echo room reveals poor left ventricular ejection fraction at 35 to 40% with pleural effusion. Dr. Winkler will discuss possible cardiac cath with patient. <Rubén Winkler - Last Filed: 12/08/19 09:03> Internal Medicine - PN: Subj *Date: 12/08/19 *Time: 09:02 Exam Vital signs and Labs for Last 24 Hours: Temp Pulse Resp BP Pulse Ox 97.5 F L 80 18 172/70 H 93 L 12/08/19 08:00 12/08/19 08:00 12/08/19 08:00 12/08/19 08:00 12/08/19 08:00 Laboratory Results - last 24 hr 12/07/19 11:51: POC Glucose 241 H 12/07/19 16:17: POC Glucose 118 H 12/07/19 20:31: POC Glucose 91 12/08/19 03:04: POC Glucose 116 H 12/08/19 05:45: POC Glucose 75 I & O for Last 24 hours: Intake & Output 01/09/1412/06/19 12/07/19 12/08/19 23:59 23:59 23:59 23:59 Intake Total 360 / 360 240 / 240 Balance 360 / 360 240 / 240 Weight 158 lb 7 oz 157 lb 5 oz 160 lb 2 oz Assessment and Plan (1) Congestive heart failure Current visit: Yes Status: Acute Qualifiers: Heart failure type: unspecified Heart failure chronicity: acute Qualified Code(s): I50.9 - Heart failure, unspecified Category: Medical Code(s): I50.9 - Heart failure, unspecified (2) Hypokalemia Current visit: Yes Status: Acute Category: Medical Code(s): E87.6 - Hypokalemia (3) Hypertensive emergency Current visit: Yes Status: Acute Category: Medical Code(s): I16.1 - Hypertensive emergency (4) HTN (hypertension) Current visit: No Status: Chronic Category: Medical Code(s): I10 - Essential (primary) hypertension (5) Renal insufficiency Current visit: No Status: Chronic Category: Medical Code(s): N28.9 - Disorder of kidney and ureter, unspecified (6) Type 2 diabetes mellitus Current visit: No Status: Chronic Category: Medical Code(s): E11.9 - Type 2 diabetes mellitus without complications (7) Hyperlipidemia Current visit: Yes Status: Acute Category: Medical Code(s): E78.5 - Hyperlipidemia, unspecified (8) Hypothyroidism Current visit: Yes Status: Acute Category: Medical Code(s): E03.9 - Hypothyroidism, unspecified (9) History of CVA (cerebrovascular accident) Current visit: Yes Status: Acute Category: Medical Code(s): Z86.73 - Personal history of transient ischemic attack (TIA), and cerebral infarction without residual deficits (10) Hypoglycemia Current visit: Yes Status: Acute Category: Medical Code(s): E16.2 - Hypoglycemia, unspecified - Assessment and plan all Dx Assessment and Plan for all problems:: Saw patient, agree with above note. Plan cardiology consult today due to new onset heart failure.
--- NOTE | 2019-12-08 10:29 | Consult Report ---
History of Present Illness Consult date: 12/08/19 Requesting physician: Rubén Winkler Consult reason: congestive heart failure Chief complaint: CHF, New cardiomyopathy Additional Medical History:: 1. Diabetes mellitus, diagnosed 1993, insulin treated A. CKD, stage 3 2. Hypertension 3. Hyperlipidemia 4. History of colon cancer 5. History of Ischemic CVA, 04/2017 with right side extremity weakness and right facial droop, improved A. Chronic Plavix therapy 6. Hypothyroidism, on replacement therapy History of present illness: Ms. Bey is an 84-year-old female with a history of colon cancer, CVA, diabete s, CKD, hypertension and hypothyroidism who began feeling poorly approximately a week ago. She states she was having nasal congestion and some wheezing. Over the past few days she has been getting progressively more short of breath. She is also having some lower extremity edema. This morning she was unable to lay down without being short of breath and therefore presented to the emergency room. She had a chest x-ray showing chronic changes with a superimposed bibasilar airspace disease. Her white blood cell count was normal but her BNP was elevated. It was felt she had some degree of heart failure, therefore she was given a dose of Lasix. She states she has urinated quite a lot and her shortness of breath has improved. She will be admitted for further evaluation and treatment. The above per Chrao Avery PA-C for Dr. Winkler Cardiology consulted for newly diagnosed cardiomyopathy in the setting of congestive heart failure. Preliminary echocardiogram shows ejection fraction in a 35-40% range. Patient denies any previous cardiac history. She has been a diabetic since 1993 She denies any significant tobacco use She has been treated for hypertension and hyperlipidemia for many years EKG on admission shows sinus rhythm, first-degree AV block, poor R wave progression anteriorly with lateral ST-T abnormalities concerning for ischemia. [facility] History Medical History: Reports:: Cancer (colon), Cerebrovascular Accident, Diabetes Mellitus Type 2, Hyperlipidemia, Hypertension, Renal Insufficiency Denies:: Home Oxygen, Internal Pacemaker, Seizures *Have you ever received a pneumonia vaccine?: No (refuses) *Have you received a flu vaccine this season?: No (refuses) Other Medical History: Reports: Hypothyroidism Laterality Cases: Right: Other (Right hemicolectomy, right hip repair) Other Surgeries: Yes: Colonoscopy. No: Pacemaker - *Social History Educational Level: Completed High School Smoking Status: Never smoker Alcohol Intake: never *Occupational Status:: retired Housing: house Household Members: family *Travel in the last 8 weeks: None Family Hx:: Diabetes Meds Home Medications Medication Instructions Recorded Confirmed Type Amlodipine Besylate [Norvasc 5mg 5 mg PO DAILY 03/26/18 12/06/19 History tablet] Atorvastatin Calcium [Atorvastatin 80 mg PO HS 03/26/18 12/06/19 History 80mg Tab] Levothyroxine Sodium 75 mcg PO DAILY 03/26/18 12/06/19 History [Levothyroxine 75mcg (0.075mg) Tab] Cholecalciferol (Vitamin D3) 50,000 iunits PO WEEKLY 12/07/19 12/07/19 History [Vitamin D3 50,000 unit Cap] Clopidogrel Bisulfate [Plavix 75mg 75 mg PO DAILY 12/07/19 12/07/19 History Tab] Insulin NPH Hum/Reg Insulin Hm 0 unit SQ ACHS 12/07/19 12/07/19 History [Humulin 70/30 Kwikpen] Lisinopril/Hydrochlorothiazide 0.5 tab PO DAILY 12/07/19 12/07/19 History [Lisinopril-Hctz 20-25 mg Tab*] Potassium Chloride 10 meq PO DAILY 12/07/19 12/07/19 History Allergies Allergy/AdvReac Type Severity Reaction Status Date / Time rosuvastatin [From CRESTOR] Allergy Mild Verified 05/08/19 13:48 Review of Systems - Review of Systems Review of systems:: pertinent systems reviewed and negative unless documented below - *Cardiovascular Reports shortness of breath with activity, Denies chest pain - *Respiratory Reports cough, Reports shortness of breath with activity - *Gastrointestinal Reports nausea, Denies abdominal pain, Denies loose stools, Denies vomiting - *Genitourinary Denies blood in urine - *Musculoskeletal Denies joint pain, Denies back pain - *Neurologic Reports weakness, Denies headache(s), Denies dizziness Exam Vital signs and Labs for Last 24 Hours: Temp Pulse Resp BP Pulse Ox 97.5 F L 80 18 172/70 H 93 L 12/08/19 08:00 12/08/19 08:00 12/08/19 08:00 12/08/19 08:00 12/08/19 08:00 Laboratory Results - last 24 hr 12/07/19 11:51: POC Glucose 241 H 12/07/19 16:17: POC Glucose 118 H 12/07/19 20:31: POC Glucose 91 12/08/19 02:04: POC Glucose 66 L 12/08/19 03:04: POC Glucose 116 H 12/08/19 05:45: POC Glucose 75 I & O for Last 24 hours: Intake & Output 12/05/19 12/06/19 12/07/19 12/08/19 11:59 11:59 11:59 11:59 Intake Total 134 / 134 480 / 480 Balance 134 / 134 480 / 480 Weight 158 lb 7 oz 157 lb 5 oz 160 lb 2 oz - *Routine HEENT Exam Head: Present: normocephalic Eye: Present: EOMI, PERRL ENT: Present: mucous membranes moist - *Routine Neck Exam Present: supple, carotid bruit. Absent: JVD - *Routine Respiratory Exam Present: rales. Absent: accessory muscle use, rhonchi, wheezes Comments: Rales 1/2 way up left side posteriorly Basilar rales right side - *Routine Cardiovascular Exam Present: RRR, murmur. Absent: gallop, rubs - *Routine Abdominal Exam Present: soft. Absent: tenderness, distended, guarding - *Routine Extremities Exam Absent: edema, calf tenderness - *Routine Neurological Exam Present: alert, oriented X3, moving all extremities Assessment and Plan (1) Congestive heart failure Current visit: Yes Status: Acute Qualifiers: Heart failure type: unspecified Heart failure chronicity: acute Qualified Code(s): I50.9 - Heart failure, unspecified Category: Medical Code(s): I50.9 - Heart failure, unspecified (2) Hypokalemia Current visit: Yes Status: Acute Category: Medical Code(s): E87.6 - Hypokalemia (3) Hypertensive emergency Current visit: Yes Status: Acute Category: Medical Code(s): I16.1 - Hypertensive emergency (4) HTN (hypertension) Current visit: No Status: Chronic Category: Medical Code(s): I10 - Essential (primary) hypertension (5) Renal insufficiency Current visit: No Status: Chronic Category: Medical Code(s): N28.9 - D isorder of kidney and ureter, unspecified (6) Type 2 diabetes mellitus Current visit: No Status: Chronic Category: Medical Code(s): E11.9 - Type 2 diabetes mellitus without complications (7) Hyperlipidemia Current visit: Yes Status: Acute Category: Medical Code(s): E78.5 - Hyperlipidemia, unspecified (8) Hypothyroidism Current visit: Yes Status: Acute Category: Medical Code(s): E03.9 - Hypothyroidism, unspecified (9) History of CVA (cerebrovascular accident) Current visit: Yes Status: Acute Category: Medical Code(s): Z86.73 - Personal history of transient ischemic attack (TIA), and cerebral infarction without residual deficits (10) Hypoglycemia Current visit: Yes Status: Acute Category: Medical Code(s): E16.2 - Hypoglycemia, unspecified (11) Cardiomyopathy Current visit: Yes Status: Acute Category: Medical Code(s): I42.9 - Cardiomyopathy, unspecified - Assessment and plan all Dx Assessment and Plan for all problems:: 1. Systolic Congestive heart failure, new, improving with medical therapy. 2. Newly diagnosed cardiomyopathy by echocardiogram with normal troponins and abnormal EKG. Recommend left heart catheterization to evaluate for coronary artery disease as etiology but will plan to do tomorrow. Would recommend additional dose of Lasix today due to continued shortness of breath in supine position. 3. Discontinue amlodipine and clonidine in setting of cardiomyopathy and replace with Coreg and diuretic therapy. Continue lisinopril therapy. Hold digoxin due to first degree AV block. 4. Hypertensive urgency on admission, improved 5. Diabetes mellitus, per Dr. Winkler 6. Hyperlipidemia, add statin therapy 7. Chronic kidney disease, stage III, continue to monitor
--- NOTE | 2019-12-09 05:57 | Cardiology Report ---
APPROVED REPORT EXAM: Comprehensive 2D, Doppler, and color-flow Echocardiogram Coal Sample Tester: Nicole Cano CRT Ht: 5 ft 6 in Wt: 150lbs BSA: 1.77 BP: 170/106 mmHg Indications: chf, cva, htn, dm, edema, sob, hld 2D Dimensions LVOT 2.21 cm (M/F) 1.5-2.5 M-Mode Dimensions RVDd 2.73 cm (0.9-2.6)LVDd 4.45 cm (3.5-5.7) LVDs 2.85 cm (3.5-5.7)IVSd 1.48 cm (0.6-1.1) PWd 0.89 cm (0.6-1.1)EF (Teich) 65.70% FS 36.00% EDV (Teich) 90.10 mL ESV (Teich) 30.90 mL LV Diastology E/A Ratio 1.04 Mitral Valve MV A Velocity 100.00 (40-130 cm/s) Left Ventricle Left atrium is mildly enlarged, left ventricle is normal size, moderate concentric left ventricular hypertrophy, visually estimated ejection fraction approximately 40%, there is moderate hypokinesis involving mid to distal septum and anterior apical wall. Diastolic parameters are inconclusive. Right Ventricle Right atrium and right ventricular normal size and contractility. Aortic Valve Aortic valve is thickened and calcified leaflet continue to display mobility, there is no aortic stenosis or aortic sufficiency. Mitral Valve Mitral valve is minimally thickened, there is mild mitral regurgitation. Tricuspid Valve Tricuspid valve is grossly normal, there is mild tricuspid regurgitation. Tricuspid regurgitation jet velocity is inadequate for calculation of the right ventricular systolic pressure. Pulmonic Valve Pulmonic valve is poorly visualized. Great Vessels Aortic root is normal size. Pericardium No significant pericardial effusion noted. Conclusion 1. Mildly enlarged left atrium, normal left ventricular size, moderate concentric left ventricular hypertrophy, visually estimated ejection fraction 40% with multiple segmental wall motion abnormality described above, diastolic parameters are inconclusive. 2. Thickened and calcified aortic valve without aortic stenosis or aortic insufficiency. 3. Mild mitral and tricuspid regurgitation. 4. No significant pericardial effusion noted. Electronically signed by : Shahbaz Landa, 12/09/2019 05:56:41
--- NOTE | 2019-12-09 08:22 | Progress Note ---
Subjective Date: 12/09/19 Time: 08:19 Principal diagnosis: CM, CHF Interval history: 84-year-old white female in bed in no acute distress. States she was able to sleep and rest last night. Shortness of breath has improved. Exam Vital signs and Labs for Last 24 Hours: Temp Pulse Resp BP Pulse Ox 98.0 F 70 17 132/55 L 93 L 12/09/19 04:00 12/09/19 04:00 12/09/19 04:00 12/09/19 04:00 12/09/19 04:00 Laboratory Results - last 24 hr 12/07/19 05:56: POC Glucose 47 L* 12/08/19 02:04: POC Glucose 66 L 12/08/19 11:44: POC Glucose 248 H 12/08/19 16:25: POC Glucose 294 H 12/08/19 21:55: POC Glucose 301 H* I & O for Last 24 hours: Intake & Output 12/06/19 12/07/19 12/08/19 12/09/19 11:59 11:59 11:59 11:59 Intake Total 134 / 134 480 / 480 490 / 490 Balance 134 / 134 480 / 480 490 / 490 Weight 158 lb 7 oz 157 lb 5 oz 160 lb 2 oz 160 lb 9 oz Microbiology Reports for the Last 24 Hours: Microbiology 12/06/19 11:10 Blood Blood Culture - Preliminary NO GROWTH AFTER 48 HOURS 12/06/19 11:00 Blood Blood Culture - Preliminary NO GROWTH AFTER 48 HOURS - *Routine Respiratory Exam Present: crackles. Absent: accessory muscle use, rales, rhonchi, wheezes - *Routine Cardiovascular Exam Present: RRR. Absent: murmur, gallop, rubs - *Routine Neurological Exam Present: alert, oriented X3, moving all extremities Progress Note: A&P (1) Congestive heart failure Status: Acute Current Visit: Yes (2) Hypokalemia Status: Acute Current Visit: Yes (3) Hypertensive emergency Status: Acute Current Visit: Yes (4) HTN (hypertension) Status: Chronic Current Visit: No (5) Renal insufficiency Status: Chronic Current Visit: No (6) Type 2 diabetes mellitus Status: Chronic Current Visit: No (7) Hyperlipidemia Status: Acute Current Visit: Yes (8) Hypothyroidism Status: Acute Current Visit: Yes (9) History of CVA (cerebrovascular accident) Status: Acute Current Visit: Yes (10) Hypoglycemia Status: Acute Current Visit: Yes (11) Cardiomyopathy Status: Acute Current Visit: Yes Assessment and Plan for All Diagnoses:: 1. Patient having a left heart catheterization today to further evaluate cardiomyopathy and systolic congestive heart failure. 2. Continue Coreg, lisinopril, Lasix, spironolactone, ASA and atorvastatin. 3. Further recommendations to follow pending above results.
--- NOTE | 2019-12-09 08:26 | Progress Note ---
<Edna Virgen - Last Filed: 12/09/19 08:23> Internal Medicine - PN: Subj *Date: 12/09/19 *Time: 08:23 Interval history: Patient had a good day yesterday and slept well during the night. She did have 1 episode of shortness of breath about 8 PM last night. She is been eating without difficulty. Bowels did not move. She voids QS. N.p.o. for cardiac cath today Exam Vital signs and Labs for Last 24 Hours: Temp Pulse Resp BP Pulse Ox 98.6 F 75 16 145/59 H 94 L 12/09/19 08:00 12/09/19 08:00 12/09/19 08:00 12/09/19 08:00 12/09/19 08:00 Laboratory Results - last 24 hr 12/07/19 05:56: POC Glucose 47 L* 12/08/19 02:04: POC Glucose 66 L 12/08/19 11:44: POC Glucose 248 H 12/08/19 16:25: POC Glucose 294 H 12/08/19 21:55: POC Glucose 301 H* I & O for Last 24 hours: Intake & Output 12/06/19 12/07/19 12/08/19 12/09/19 11:59 11:59 11:59 11:59 Intake Total 134 / 134 480 / 480 620 / 620 Balance 134 / 134 480 / 480 620 / 620 Weight 158 lb 7 oz 157 lb 5 oz 160 lb 2 oz 160 lb 9 oz Microbiology Reports for the Last 24 Hours: Microbiology 12/06/19 11:10 Blood Blood Culture - Preliminary NO GROWTH AFTER 48 HOURS 12/06/19 11:00 Blood Blood Culture - Preliminary NO GROWTH AFTER 48 HOURS - Constitutional no acute distress Comments: Lying in bed and appears comfortable. - *Routine Respiratory Exam Present: crackles (Bilateral basilar) - *Routine Cardiovascular Exam Present: RRR - *Routine Abdominal Exam Present: soft, normoactive bowel sounds. Absent: tenderness, distended - *Routine Extremities Exam Absent: edema, calf tenderness - *Routine Neurological Exam Present: alert, oriented X3 Assessment and Plan (1) Congestive heart failure Current visit: Yes Status: Acute Qualifiers: Heart failure type: unspecified Heart failure chronicity: acute Qualified Code(s): I50.9 - Heart failure, unspecified Category: Medical Code(s): I50.9 - Heart failure, unspecified (2) Hypokalemia Current visit: Yes Status: Acute Category: Medical Code(s): E87.6 - Hypokalemia (3) Hypertensive emergency Current visit: Yes Status: Acute Category: Medical Code(s): I16.1 - Hypertensive emergency (4) HTN (hypertension) Current visit: No Status: Chronic Category: Medical Code(s): I10 - Essential (primary) hypertension (5) Renal insufficiency Current visit: No Status: Chronic Category: Medical Code(s): N28.9 - Disorder of kidney and ureter, unspecified (6) Type 2 diabetes mellitus Current visit: No Status: Chronic Category: Medical Code(s): E11.9 - Type 2 diabetes mellitus without complications (7) Hyperlipidemia Current visit: Yes Status: Acute Category: Medical Code(s): E78.5 - Hyperlipidemia, unspecified (8) Hypothyroidism Current visit: Yes Status: Acute Category: Medical Code(s): E03.9 - Hypothyroidism, unspecified (9) History of CVA (cerebrovascular accident) Current visit: Yes Status: Acute Category: Medical Code(s): Z86.73 - Personal history of transient ischemic attack (TIA), and cerebral infarction without residual deficits (10) Hypoglycemia Current visit: Yes Status: Acute Category: Medical Code(s): E16.2 - Hypoglycemia, unspecified (11) Cardiomyopathy Current visit: Yes Status: Acute Category: Medical Code(s): I42.9 - Cardiomyopathy, unspecified - Assessment and plan all Dx Assessment and Plan for all problems:: Patient will have a cardiac cath this a.m. <Rubén Winkler - Last Filed: 12/09/19 08:40> Internal Medicine - PN: Subj *Date: 12/09/19 *Time: 08:39 Exam Vital signs and Labs for Last 24 Hours: Temp Pulse Resp BP Pulse Ox 98.6 F 75 16 145/59 H 94 L 12/09/19 08:00 12/09/19 08:00 12/09/19 08:00 12/09/19 08:00 12/09/19 08:00 Laboratory Results - last 24 hr 12/07/19 05:56: POC Glucose 47 L* 12/08/19 02:04: POC Glucose 66 L 12/08/19 11:44: POC Glucose 248 H 12/08/19 16:25: POC Glucose 294 H 12/08/19 21:55: POC Glucose 301 H* I & O for Last 24 hours: Intake & Output 12/06/19 12/07/19 12/08/19 12/09/19 23:59 23:59 23:59 23:59 Intake Total 14 / 134 360 / 360 720 / 720 140 / 140 Balance 14 / 134 360 / 360 720 / 720 140 / 140 Weight 158 lb 7 oz 157 lb 5 oz 160 lb 14.999 oz 160 lb 9 oz Microbiology Reports for the Last 24 Hours: Microbiology 12/06/19 11:10 Blood Blood Culture - Preliminary NO GROWTH AFTER 48 HOURS 12/06/19 11:00 Blood Blood Culture - Preliminary NO GROWTH AFTER 48 HOURS Assessment and Plan (1) Congestive heart failure Current visit: Yes Status: Acute Qualifiers: Heart failure type: unspecified Heart failure chronicity: acute Qualified Code(s): I50.9 - Heart failure, unspecified Category: Medical Code(s): I50.9 - Heart failure, unspecified (2) Hypokalemia Current visit: Yes Status: Acute Category: Medical Code(s): E87.6 - Hypokalemia (3) Hypertensive emergency Current visit: Yes Status: Acute Category: Medical Code(s): I16.1 - Hypertensive emergency (4) HTN (hypertension) Current visit: No Status: Chronic Category: Medical Code(s): I10 - Essential (primary) hypertension (5) Renal insufficiency Current visit: No Status: Chronic Category: Medical Code(s): N28.9 - Disorder of kidney and ureter, unspecified (6) Type 2 diabetes mellitus Current visit: No Status: Chronic Category: Medical Code(s): E11.9 - Type 2 diabetes mellitus without complications (7) Hyperlipidemia Current visit: Yes Status: Acute Category: Medical Code(s): E78.5 - Hyperlipidemia, unspecified (8) Hypothyroidism Current visit: Yes Status: Acute Category: Medical Code(s): E03.9 - Hypothyroidism, unspecified (9) History of CVA (cerebrovascular accident) Current visit: Yes Status: Acute Category: Medical Code(s): Z86.73 - Personal history of transient ischemic attack (TIA), and cerebral infarction without residual deficits (10) Hypoglycemia Current visit: Yes Status: Acute Category: Medical Code(s): E16.2 - Hypoglycemia, unspecified (11) Cardiomyopathy Current visit: Yes Status: Acute Category: Medical Code(s): I42.9 - Cardiomyopathy, unspecified (12) CKD (chronic kidney disease) stage 3, GFR 30-59 ml/min Current visit: Yes Status: Acute Category: Medical Code(s): N18.3 - Chronic kidney disease, stage 3 (moderate) - Assessment and plan all Dx Assessment and Plan for all problems:: Saw patient, agree with above note.
[2019-12-09 09:06] LABS: Anion Gap 9.4 mEq/L (5-15); Calcium 8.1 mg/dL (8.5-10.1)
--- NOTE | 2019-12-10 15:47 | Discharge Summary ---
General - General Admission date:: 12/06/19 Discharge date: 12/09/19 HPI HPI: Ms. Bey is an 84-year-old female with a history of colon cancer, CVA, diabetes, CKD, hypertension and hypothyroidism who began feeling poorly approximately a week ago. She states she was having nasal congestion and some wheezing. Over the past few days she has been getting progressively more short of breath. She is also having some lower extremity edema. This morning she was unable to lay down without being short of breath and therefore presented to the emergency room. She had a chest x-ray showing chronic changes with a superimposed bibasilar airspace disease. Her white blood cell count was normal but her BNP was elevated. It was felt she had some degree of heart failure, therefore she was given a dose of Lasix. She states she has urinated quite a lot and her shortness of breath has improved. She will be admitted for further evaluation and treatment. Hospital Course Hospital Course: The patient's initial chest x-ray showed chronic changes with superimposed bibasilar airspace disease. She was admitted and given a dose of Lasix with improvement in her breathing. She was started on a nitroglycerin drip and it was titrated up which resulted in lowering her blood pressure. She was much more comfortable. An echo was ordered. It showed an EF of 40% with pleural effusion. The patient did develop some diarrhea while in the hospital. She was able to be weaned off of the nitroglycerin drip with satisfactory blood pressures. She was able to be moved out of stepdown and her Lantus dose was decreased due to low blood sugars. She was able to be weaned off of her oxygen and denied any chest pain. Cardiology was consulted due to new onset of heart failure. They believe she had systolic congestive heart failure that was improving with medical therapy. There was also newly diagnosed cardiomyopathy by echo with normal troponins but an abnormal EKG. They recommended a left heart catheterization and an additional dose of Lasix. They wanted to discontinue her amlodipine and clonidine in the setting of cardiomyopathy and replace this with Coreg and diuretic therapy. The patient had a heart cath and there was moderate disease in the right coronary artery and severe to critical disease within the proximal to mid LAD. Angioplasty was attempted of the mid LAD resulting in dissection flap accompanied by GAURANG II flow. There was a mildly elevated LVEDP and a mildly reduced ejection fraction. It was the recommendation to refer the patient to the [facility] for additional support. She was started on a heparin and nitroglycerin drip. Objective Vital signs: Temp Pulse Resp BP Pulse Ox 97.9 F 78 19 142/55 H 100 12/09/19 17:05 12/09/19 17:05 12/09/19 17:05 12/09/19 17:05 12/09/19 17:05 Narrative: - Constitutional no acute distress - *Routine HEENT Exam Head: Present: normocephalic Eye: Present: EOMI, PERRL ENT: Present: mucous membranes dry - *Routine Neck Exam Present: supple. Absent: lymphadenopathy - *Routine Respiratory Exam Present: rales (faint basilar rales), wheezes (faint) - *Routine Cardiovascular Exam Present: RRR - *Routine Abdominal Exam Present: soft, normoactive bowel sounds. Absent: tenderness - *Routine Extremities Exam Absent: cyanosis, clubbing, edema - *Routine Skin Exam Present: warm. Absent: rash - *Routine Neurological Exam Present: alert, oriented X3 Results Labs on day of discharge: Labs from last 24 hours 12/09/19 12/09/19 12/09/19 16:42 14:17 13:31 Activated Clotting Time 262 H* D > 400 H* POC Glucose 174 H Preliminary micro results at discharge 12/06/19 11:10 Blood Culture - Preliminary Blood NO GROWTH AFTER 48 HOURS 12/06/19 11:00 Blood Culture - Preliminary Blood NO GROWTH AFTER 48 HOURS DS: Diagnosis - Discharge Diagnosis (1) Congestive heart failure Status: Acute (2) Hypokalemia Status: Acute (3) Hypertensive emergency Status: Acute (4) HTN (hypertension) Status: Chronic (5) Renal insufficiency Status: Chronic (6) Type 2 diabetes mellitus Status: Chronic (7) Hyperlipidemia Status: Acute (8) Hypothyroidism Status: Acute (9) History of CVA (cerebrovascular accident) Status: Acute (10) Hypoglycemia Status: Acute (11) Cardiomyopathy Status: Acute (12) CKD (chronic kidney disease) stage 3, GFR 30-59 ml/min Status: Acute (13) Coronary artery disease Status: Acute Discharge Plan - Patient Discharge Instructions ACTIVITY: Continue current activity DIET: NPO Patient Instructions: Cardiac Catheterization, Heart-Healthy Diet, DI for Heart Failure, DI for Cardiac Catheterization, DI for Hypokalemia, DI for Hypoglycemia, DI for Surgical Site Infection Forms: Transfer Record - Follow up Plan Follow up with: Rubén Winkler MD [Primary Care Provider] - Juan Carlos Gayle MD [Staff Physician] - Disposition: Xfer Short-Term Hosp Home Medications: Home Medications Medication Instructions Recorded Confirmed Type Amlodipine Besylate [Norvasc 5mg 5 mg PO DAILY 03/26/18 12/06/19 History tablet] Atorvastatin Calcium [Atorvastatin 80 mg PO HS 03/26/18 12/06/19 History 80mg Tab] Levothyroxine Sodium 75 mcg PO DAILY 03/26/18 12/06/19 History [Levothyroxine 75mcg (0.075mg) Tab] Cholecalciferol (Vitamin D3) 50,000 iunits PO WEEKLY 12/07/19 12/07/19 History [Vitamin D3 50,000 unit Cap] Clopidogrel Bisulfate [Plavix 75mg 75 mg PO DAILY 12/07/19 12/07/19 History Tab] Insulin NPH Hum/Reg Insulin Hm 0 unit SQ ACHS 12/07/19 12/07/19 History [Humulin 70/30 Kwikpen] Lisinopril/Hydrochlorothiazide 0.5 tab PO DAILY 12/07/19 12/07/19 History [Lisinopril-Hctz 20-25 mg Tab*] Potassium Chloride 10 meq PO DAILY 12/07/19 12/07/19 History Prescriptions/Medication Reconciliation: Continued Levothyroxine Sodium [Levothyroxine 75mcg (0.075mg) Tab] 75 mcg PO DAILY Atorvastatin Calcium [Atorvastatin 80mg Tab] 80 mg PO HS Amlodipine Besylate [Norvasc 5mg tablet] 5 mg PO DAILY Cholecalciferol (Vitamin D3) [Vitamin D3 50,000 unit Cap] 50,000 iunits PO WEEKLY Clopidogrel Bisulfate [Plavix 75mg Tab] 75 mg PO DAILY Lisinopril/Hydrochlorothiazide [Lisinopril-Hctz 20-25 mg Tab*] 0.5 tab PO DAILY Potassium Chloride 10 meq PO DAILY Insulin NPH Hum/Reg Insulin Hm [Humulin 70/30 Kwikpen] 0 unit SQ ACHS - Problem Reconciliation Problems Reviewed?: Yes
== END 2019-12-09 17:33 | disposition short-term general hospital (02) | DRG 250 ==
LOC: ER 06:12 → 2ND 08:17
PROVIDERS: ADMIT Family Medicine; ATTEND Family Medicine
CPT/HCPCS: 36415; 71020; 71046; 80048; 80053; 82962; 83605; 83880; 84484; 85025; 85347; 87040; 92920; 93005; 93306; 93458; 96365; 96375; 99152; 99153; 99285; C1725; C1769; J1644; Q9967

== ENCOUNTER 2019-12-20 23:48 | Inpatient (IN) ==
--- NOTE | 2019-12-21 00:08 | Emergency Department Note ---
ED Disposition Clinical Impression: Hypoglycemia, Pleural effusion, left, Elevated troponin Hypothermia Qualifiers: Encounter type: initial encounter Qualified Code(s): T68.XXXA - Hypothermia, initial encounter Acute renal failure Qualifiers: Acute renal failure type: unspecified Qualified Code(s): N17.9 - Acute kidney failure, unspecified Disposition: Admitted as Observation Condition on Discharge: Fair Referrals: Jaja King MD [Staff Physician] - - Critical Care Critical Care Time: Yes Attestation: On 12/20/19, the high probability of a clinically significant, sudden or life threatening deterioration of the following system(s) required my full and direct attention, intervention and personal management. The time I documented below is in addition to time spent performing reported procedures but includes the following listed in this critical care notation. Total Critical Care Time: 40 Vital system(s) involved:: Metabolic Failure My critical care processes included: Assessment & monitoring of V/S, Initial and Re-exams, Data Review/Interpretation, Coordinating Care, Medication Orders and management, Documentation Medical Decision Making - Shahab Inquiry Pt receiving controlled substance: No Vital Signs: 12/20/19 23:50 12/21/19 00:43 12/21/19 01:29 Temperature 93.8 F L 93.3 F L Temperature Source Rectal Rectal Pulse Rate [Right] 60 59 L 61 Respiratory Rate 24 20 18 Blood Pressure [Right Arm] 153/79 H 181/91 H 161/66 H Blood Pressure Mean [Right Arm] 103 121 97 02 Sat by Pulse Oximetry 97 99 100 Oxygen Delivery Method Room Air Room Air Nasal Cannula Oxygen Flow Rate (LPM) 2 - Lab Data Lab Results 12/21/19 00:03: WBC 8.1, RBC 2.89 L, Hgb 8.8 L, Hct 27.7 L, MCV 95.9, MCH 30.5, MCHC 31.8, RDW 14.7, Plt Count 156, MPV 12.6 H, Neut % (Auto) 74.8, Lymph % (Auto) 13.9, [place] % (Auto) 9.1, Eos % (Auto) 1.8, Baso % (Auto) 0.4, Neut # (Auto) 6.1, Lymph # (Auto) 1.1, [place] # (Auto) 0.7, Eos # (Auto) 0.2, Baso # (Auto) 0.0 12/21/19 00:03: Sodium 131 L, Potassium 4.8, Chloride 101, Carbon Dioxide 23, Anion Gap 11.8, BUN 81 H, Creatinine 4.68 H, Estimated Creat Clear 11, Estimated GFR 9 L*, Est GFR ( Amer) 11 L*, Glucose 60 L, Calcium 7.1 L, Troponin I 0.75 H 12/21/19 00:03: B-Natriuretic Peptide 1210 H 12/21/19 00:15: Lactate 1.2 12/21/19 00:15: Phosphorus 4.9 12/21/19 01:24: POC Glucose 65 L 12/21/19 01:25: Urine Color Yellow, Urine Appearance Clear, Urine pH 5.5, Ur Specific [place] 1.020, Urine Protein 2+, Urine Glucose (UA) Negative, Urine Ketones Negative, Urine Blood Trace-i, Urine Nitrate Negative, Urine Bilirubin Negative, Urine Urobilinogen 0.2, Ur Leukocyte Esterase Negative, Urine RBC 3-5, Ur Squamous Epith Cells 3-5, Amorphous Sediment 1+, Coarse Granular Casts 5-10 Result diagrams: 12/21/19 00:03 12/21/19 00:03 Orders (Tests/Meds): ED MEDICATIONS Generic Name Dose Route Start Last Admin Trade Name Freq PRN Reason Stop Dose Admin Dextrose 1,000 mls @ 50 mls/hr 12/21/19 01:30 12/21/19 01:37 Dext 5% In Water 1000mls IV 01/20/20 01:29 50 mls/hr .Q20H JUDY Administration Discontinued Medications Generic Name Dose Route Start Last Admin Trade Name Freq PRN Reason Stop Dose Admin Dextrose 50 ml 12/21/19 01:26 12/21/19 01:36 Dextrose 50% 50ml Syringe IVP 12/21/19 01:27 50 ml ONCE ONE Administration ORDERS Category Date Time Status XR chest 2V Stat Exams 12/21/19 00:13 Taken TSH [Thyroid Stimulating Hormone] Stat Lab 12/21/19 00:03 Received Troponin I Q3H Lab 12/21/19 06:15 Ordered Troponin I Routine Lab 12/21/19 03:15 Ordered Blood Culture Stat Micro 12/21/19 00:15 Received ECG Request by /Tram Stat Y 12/21/19 00:13 Ordered - Radiology Data #1 Image(s): Chest Image Reviewed: Yes I reviewed the patient's radiology image L pleural effusion and atelectasis. Chest x-ray reading from [facility] from 12/19/2019 was left pleural effusion and atelectasis, small right pleural effusion and atelectasis. - CT Data CT Scan: Chest Time Received: 01:57 ([facility] fax) ED CT Reviewed: Yes: I have viewed the radiologist's interpretation Preliminary Findings: Normal/NAD - ECG Data Tracing #1 EKG interpreted by Sachin Walter MD: Rhythm: Significant baseline artifact and wander. Limits interpretation. Undetermined rhythm. Likely sinus with first-degree AV block. Rate: 67 [place]: normal Ectopy: none Conduction: normal ST Segment Changes: none T Wave Changes: none Q Waves: Septal, anterior Low voltage QRS Prior electrocardiagrams reviewed. No significant change from prior tracings. - Physician Consults Physician Consulted: Fernando Winkler Time: 02:16 Reason -: Admission Comment/Response: Agrees to admit the patient to the hospital. We discussed the patient's clinical information, including history, exam, laboratory and radiology results and ED course. Per hospital procedure, I will write temporary bridge inpatient orders on the patient. Specific orders requested by the admitting physician: Continue D5W, fingerstick every 2 hours, continue Mary hugger General Adult HPI - General Chief complaint: Shortness of Breath/Dyspnea Stated complaint: DIFFICULTY BREATHING Time Seen by Provider: 12/21/19 00:08 Mode of Arrival: EMS Limitations: No Limitations Description of Symptoms (Recalled from ER Triage Doc. by RN): PATIENT PRESENTS TO TRAUMA 4 VIA EMS FROM HOME C/O DIFFICULTY BREATHING. REPORTS BEING D/C'ED FROM [facility] TODAY WHERE SHE WAS ADMITTED FOR CHF AND HAD RECENT HEART CATH WITH 3 STENT PLACEMENT. PATIENT REPORTS TONIGHT SHE STARTED EXPERIENCING DIFFICULTY BREATHING. EMS REPORTS BS UPON THEIR ARRIVAL READ 53. REPORTS ADMINISTERING 1/2 AMP OF D50 EN ROUTE BRINGING BS UP TO 153. BS UPON ARRIVAL TO ED IS 134. PATIENT REPORTS SYMPTOMS APPEAR TO BE RESOLVING AFTER D50 ADMINISTRATION. PATIENT ALSO REPORTS 20 POUND WEIGHT GAIN OVER LAST 2 WEEKS DURING HER STAY AT . - History of Present Illness HPI narrative: Brought in by ambulance for difficulty breathing, hypoglycemia. The patient was discharged from [facility] today. She says that she woke up tonight feeling hot and was sweaty. She says that she had trouble breathing. Daughter called 911. Daughter checked her blood sugar and it was 54. She was given orange juice. Blood sugar was 53 on EMS arrival. D50 administered during transport and the patient says she now feels better. Daughter says she has been fatigued and tired since discharge. Daughter says she ate a small amount at suppertime and used 8 units of insulin before bed. The patient had admitted actually been admitted to this hospital for dyspnea. She had a cardiac cath and had unsuccessful PTCA with a coronary artery dissection. She was transferred to [facility]. She was admitted there from 12/10/2019 through 12/20/2019. She had a repeat cardiac c atheterization and 3 stents were placed. Postprocedure, she developed acute renal failure, suspected contrast-induced nephropathy. Discharge creatinine was 5.13. Discharge hgb 8.8. BNP on arrival to was 6153. Troponin T was elevated on 12/09/2019, but was not repeated after that date. Patient states "I do not want to go back to ". - Related Data Home Medications Medication Instructions Recorded Confirmed Atorvastatin Calcium [Atorvastatin 80 mg PO HS 03/26/18 12/21/19 80mg Tab] Levothyroxine Sodium 75 mcg PO DAILY 03/26/18 12/21/19 [Levothyroxine 75mcg (0.075mg) Tab] Clopidogrel Bisulfate [Plavix 75mg 75 mg PO DAILY 12/07/19 12/21/19 Tab] Insulin NPH Hum/Reg Insulin Hm 11 unit SQ BID 12/07/19 12/21/19 [Humulin 70/30 Kwikpen] Aspirin [Aspir 81] 81 mg PO DAILY 12/21/19 12/21/19 Hydralazine HCl [Hydralazine HCl 25 mg PO TID 12/21/19 12/21/19 25mg Tablet] carvediloL [Carvedilol 6.25mg Tab] 6.25 mg PO BID 12/21/19 12/21/19 Allergies Allergy/AdvReac Type Severity Reaction Status Date / Time rosuvastatin [From [facility]] Allergy Mild Verified 05/08/19 13:48 [facility] History - Hepatitis A Screen Drug use history?: No High risk sexual behaviors?: No History of sexually transmitted infection?: No Currently employed?: No Childcare worker?: No Do you have indoor plumbing?: Yes Do you have electricity?: Yes Attestation statement:: This patient has been screened for Hepatitis A risk factors. I have reviewed the patient's past medical history: Yes Medical History: Reports:: Cancer (colon), Cerebrovascular Accident, Diabetes Mellitus Type 2, Hyperlipidemia, Hypertension, Renal Insufficiency Denies:: Home Oxygen, Internal Pacemaker, Seizures Other Medical History: Reports: Hypothyroidism Laterality Cases: Right: Other (Right hemicolectomy, right hip repair) Other Surgeries: Yes: Colonoscopy. No: Pacemaker Comment: Right hemicolectomy 08/02/2011 - Social History Smoking Status: Never smoker Alcohol Intake: never Occupational Status: retired Housing: house Household Members: family Family Hx:: Diabetes ROS Obtained: Yes All systems reviewed & no additional complaints - Constitutional Constitutional: Denies fever(s) - Cardiovascular Cardiovascular: Denies chest pain, Reports diaphoresis - Respiratory Respiratory: No cough, Yes dyspnea - Gastrointestinal Gastrointestingal: Denies: diarrhea, vomiting Physical Exam - General General appearance: alert Comment: Mildly tachypneic, but she is on room air and pulse ox is 99%. laboratory monitor shows what appears to be sinus rhythm rate of 62 with first- degree AV block. - Head Head exam: atraumatic, normocephalic - Eye Eye exam: Present: normal appearance, EOMI - ENT ENT exam: Present: mucous membranes moist - Neck Neck exam: Present: normal inspection, trachea midline - Chest Chest inspection: Present: normal inspection, symmetric chest wall rise - Respiratory Respiratory exam: Present: normal lung sounds bilaterally. Absent: respiratory distress - Cardiovascular Cardiovascular exam: Present: regular rate, normal rhythm, normal heart sounds - Abdominal Exam Abdominal exam: Present: soft. Absent: distention, tenderness Comment: Patchy purple ecchymosis on abdominal wall - Extremities Exam Extremities exam: Present: normal capillary refill, other (Trace pitting edema of both ankles) - Neurological Exam Neurological exam: Present: alert, oriented X3 - Psychiatric Psychiatric exam: Present: normal affect, normal mood - Skin Skin exam: Present: pallor - Other Other exam information: Ecchymosis of right distal forearm and wrist from cardiac cath.
[2019-12-21 00:45] LABS: Basophils % 0.4 % (0.1-2.0); Eosinophils # 0.2 K/mm3 (0.0-0.4); Eosinophils % 1.8 % (0.1-12.0); Hemoglobin 8.8 g/dL (12.2-16.2); Lymphocytes # 1.1 K/mm3 (0.7-4.5); Lymphocytes % 13.9 % (10-50); Mean Corpuscular HGB Conc 31.8 g/dL (31.8-35.4); Mean Corpuscular Volume 95.9 fl (81-99); Mean Platelet Volume 12.6 fl (7.4-10.4); Monocytes # 0.7 K/mm3 (0.1-1.0); Monocytes % 9.1 % (1.7-9.3); Neutrophils # 6.1 K/mm3 (1.8-7.8); Neutrophils % 74.8 % (37.0-80.0); Platelet Count 156 K/mm3 (142-424); Red Blood Count 2.89 M/mm3 (4.20-5.40); Red Cell Distribution Width 14.7 % (11.5-17.5); White Blood Count 8.1 K/mm3 (4.8-10.8)
[2019-12-21 00:48] LABS: Hematocrit 27.7 % (37.0-47.0)
[2019-12-21 01:06] LABS: Anion Gap 11.8 mEq/L (5-15); Calcium 7.1 mg/dL (8.5-10.1)
[2019-12-21 01:37] LABS: Microscopic, Urine URINE MICROSCOPIC (MICROSCOPIC)
[2019-12-21 01:38] LABS: Appearance,Urine CLEAR (Clear); Bilirubin,Urine Negative (Negative); Blood, Urine TRACE-I (Negative); Color,Urine YELLOW (Yellow); Glucose,Urine (UA) Negative (Negative); Ketones,Urine Negative (Negative); Leukocyte Esterase,Urine Negative (Negative); PH,Urine 5.5 (5.0-8.5); Protein,Urine 2+ (Negative); Urobilinogen,Urine 0.2 EU/dl (0.2)
[2019-12-21 01:40] LABS: Amorphous Sediment,Urine 1+ /lpf
[2019-12-21 04:46] LABS: Anion Gap 15.9 mEq/L (5-15); Calcium 7.1 mg/dL (8.5-10.1)
--- NOTE | 2019-12-21 08:58 | Pharmacy Consult Notes ---
[facility] Pharmacy VTE Monitoring - Patient Demographics Admission date: 12/21/19 (T) Report Date: 12/21/19 Time: 08:58 Allergies/Adverse Reactions: Patient Allergies rosuvastatin [From CRESTOR] Allergy (Mild, Verified 05/08/19 13:48) Height: 1.7 m Weight: 86.693 kg Patient Problems: Current Active Problems Hypoglycemia (Acute) Hypothermia (Acute) Acute renal failure (Acute) Pleural effusion, left (Acute) Elevated troponin (Acute) - VTE Risk Labs: VTE Related Lab Results Hgb 8.8 g/dL (12.2-16.2) L 12/21/19 00:03 Hct 27.7 % (37.0-47.0) L 12/21/19 00:03 Plt Count 156 K/mm3 (142-424) 12/21/19 00:03 BUN 78 mg/dL (7-18) H 12/21/19 03:25 Creatinine 4.41 mg/dL (0.55-1.02) H 12/21/19 03:25 Estimated Creat Clear 13 mL/min (50-200) 12/21/19 03:25 Was VTE Risk Assessment Performed: Yes VTE Risk Level: Moderate Risk - Prophylaxis Types of VTE Prophylaxis: TEDS Knee High (MAURISIO HOSE ORDERED) Location of Applied Device: Bilateral Lower Extremeties
--- NOTE | 2019-12-21 09:07 | Electrocardiograph Report ---
APPROVED REPORT Exam: Resting ECG HR:67 bpm ECG Measurements Heart Rate 67 AXES QRSd 82 QRS -28 QT 480 T109 QTc 507 <Conclusion> Accelerated Junctional rhythm with premature supraventricular complexes and fusion complexes Low voltage QRS Cannot rule out Anteroseptal infarct, age undetermined ST & T wave abnormality, consider lateral ischemia Abnormal ECG Electronically signed by : Irineo Roth, 12/21/2019 09:07:15
--- NOTE | 2019-12-21 09:23 | History & Physical Report ---
*Admission Date: 12/21/19 (T) *Chief complaint: Shortness of breath *History of present illness: 84 year old female with a complicated recent medical history. Patient was admitted at [facility] 2 weeks ago due to shortness of breath and was diagnosed with congestive heart failure. As part of her evaluation she had a left heart cath and during the procedure she was found to have a significant LAD stenosis. During treatment of that stenosis she developed a dissection. The procedure was aborted and she transferred directly to [facility] in [place] where she was until yesterday. Records from her visit are not available for reviewed, but she reportedly had another left heart cath with placement of 3 stents. She also developed acute renal failure and was given a diagnosed of post contrast nephropathy. The patient said she had a lot of trouble with low blood sugar while at as well. After getting home from yesterday the patient began to have some shortness of breath. She states that her symptoms got worse and she felt like she was going to due so she came to [facility] ER for an evaluation. She told the ER doctor she was unwilling to return to last night. She states she was given several new medications at the time of her discharge but she has not taken them as of yet. Patient reports generalized edema and thinks she gained 20 lbs during her admission at . [facility] History I have reviewed the patient's past medical history: Yes Medical History: Reports:: Cancer (colon), Congestive Heart Failure (Dx: Nov 2019), Coronary Artery Disease (Dx: Nov 2019), Cerebrovascular Accident, Diabetes Mellitus Type 2, Hyperlipidemia, Hypertension, Myocardial Infarction, Renal Insufficiency Denies:: Home Oxygen, Internal Pacemaker, Seizures *Have you ever received a pneumonia vaccine?: No *Have you received a flu vaccine this season?: No Other Medical History: Reports: Hypothyroidism Laterality Cases: Right: Total Hip Replacement, Other Other Surgeries: Yes: Angioplasty (Nov 2019), Cardiac Catheterization (multiple , Nov 2019), Colonoscopy. No: Pacemaker Amputation: No - *Social History Smoking Status: Never smoker Alcohol Intake: never Substance Use Type: denies use *Occupational Status:: retired Housing: house Household Members: family *Travel in the last 8 weeks: None Family Hx:: Diabetes Review of Systems - Constitutional Denies chills, Denies fever(s) - Eyes Denies blurry vision - ENT Reports nasal discharge (mixed with blood at times), Denies bleeding gums - *Respiratory Denies cough - *Gastrointestinal Denies vomiting - *Genitourinary Denies difficulty urinating - *Musculoskeletal Denies joint pain - Integumentary/Breasts Denies rash - *Neurologic Denies dizziness - Psychiatric Denies anxiety Meds Home Medications Medication Instructions Recorded Confirmed Type Atorvastatin Calcium [Atorvastatin 80 mg PO HS 03/26/18 12/21/19 History 80mg Tab] Levothyroxine Sodium 75 mcg PO DAILY 03/26/18 12/21/19 History [Levothyroxine 75mcg (0.075mg) Tab] Clopidogrel Bisulfate [Plavix 75mg 75 mg PO DAILY 12/07/19 12/21/19 History Tab] Insulin NPH Hum/Reg Insulin Hm 11 unit SQ BID 12/07/19 12/21/19 History [Humulin 70/30 Kwikpen] Aspirin [Aspir 81] 81 mg PO DAILY 12/21/19 12/21/19 History Cholecalciferol (Vitamin D3) 50,000 unit PO WEEKLY 12/21/19 12/21/19 History [Vitamin D3 50,000 unit Cap] Hydralazine HCl [Hydralazine HCl 25 mg PO TID 12/21/19 12/21/19 History 25mg Tablet] carvediloL [Carvedilol 6.25mg Tab] 6.25 mg PO BID 12/21/19 12/21/19 History Allergies Allergy/AdvReac Type Severity Reaction Status Date / Time rosuvastatin [From CRESTOR] Allergy Mild Verified 05/08/19 13:48 Exam Vital signs and Labs for Last 24 Hours: Temp Pulse Resp BP Pulse Ox 98.1 F 81 24 150/71 H 96 12/21/19 08:00 12/21/19 08:00 12/21/19 08:00 12/21/19 08:00 12/21/19 08:00 Laboratory Results - last 24 hr 12/21/19 00:03: WBC 8.1, RBC 2.89 L, Hgb 8.8 L, Hct 27.7 L, MCV 95.9, MCH 30.5, MCHC 31.8, RDW 14.7, Plt Count 156, MPV 12.6 H, Neut % (Auto) 74.8, Lymph % (Auto) 13.9, [place] % (Auto) 9.1, Eos % (Auto) 1.8, Baso % (Auto) 0.4, Neut # (Auto) 6.1, Lymph # (Auto) 1.1, [place] # (Auto) 0.7, Eos # (Auto) 0.2, Baso # (Auto) 0.0 12/21/19 00:03: Sodium 131 L, Potassium 4.8, Chloride 101, Carbon Dioxide 23, Anion Gap 11.8, BUN 81 H, Creatinine 4.68 H, Estimated Creat Clear 11, Estimated GFR 9 L*, Est GFR ( Amer) 11 L*, Glucose 60 L, Calcium 7.1 L, Troponin I 0.75 H 12/21/19 00:03: B-Natriuretic Peptide 1210 H 12/21/19 00:03: TSH 9.52 H 12/21/19 00:15: Lactate 1.2 12/21/19 00:15: Phosphorus 4.9 12/21/19 01:24: POC Glucose 65 L 12/21/19 01:25: Urine Color Yellow, Urine Appearance Clear, Urine pH 5.5, Ur Specific [place] 1.020, Urine Protein 2+, Urine Glucose (UA) Negative, Urine Ketones Negative, Urine Blood Trace-i, Urine Nitrate Negative, Urine Bilirubin Negative, Urine Urobilinogen 0.2, Ur Leukocyte Esterase Negative, Urine RBC 3-5, Ur Squamous Epith Cells 3-5, Amorphous Sediment 1+, Coarse Granular Casts 5-10 12/21/19 03:25: Troponin I 0.69 H 12/21/19 03:25: Sodium 132 L, Potassium 4.9, Chloride 100, Carbon Dioxide 21, Anion Gap 15.9 H, BUN 78 H, Creatinine 4.41 H, Estimated Creat Clear 13, Estimated GFR 9 L*, Est GFR ( Amer) 11 L*, Glucose 173 H D, Calcium 7.1 L 12/21/19 03:30: POC Glucose 204 H 12/21/19 05:25: POC Glucose 217 H 12/21/19 07:29: POC Glucose 238 H Vital Signs - 24 hr 12/20/19 23:50 12/21/19 00:43 12/21/19 01:29 Temperature 93.8 F L 93.3 F L Pulse Rate Pulse Rate [Right] 60 59 L 61 Respiratory Rate 24 20 18 Blood Pressure Blood Pressure [Right Arm] 153/79 H 181/91 H 161/66 H 02 Sat by Pulse Oximetry 97 99 100 12/21/19 02:27 12/21/19 02:35 12/21/19 03:20 Temperature 93.3 F L Pulse Rate 62 Pulse Rate [Right] 61 Respiratory Rate 20 Blood Pressure 132/50 L Blood Pressure [Right Arm] 132/50 L 02 Sat by Pulse Oximetry 98 98 12/21/19 03:30 12/21/19 03:31 12/21/19 03:45 Temperature 95.3 F L 94.4 F L 95.2 F L Pulse Rate Pulse Rate [Right] 68 68 69 Respiratory Rate 15 16 24 Blood Pressure Blood Pressure [Right Arm] 190/76 H 187/70 H 194/71 H 02 Sat by Pulse Oximetry 100 99 98 12/21/19 04:00 12/21/19 04:17 12/21/19 04:29 Temperature 95.5 F L 95.2 F L Pulse Rate 73 Pulse Rate [Right] 70 73 Respiratory Rate 26 H 30 H Blood Pressure Blood Pressure [Right Arm] 192/68 H 172/64 H 02 Sat by Pulse Oximetry 98 100 12/21/19 05:00 12/21/19 05:30 12/21/19 06:00 Temperature 95.9 F L 96.7 F L 97.3 F L Pulse Rate Pulse Rate [Right] 74 75 80 Respiratory Rate 26 H 24 26 H Blood Pressure Blood Pressure [Right Arm] 140/70 130/60 162/64 H 02 Sat by Pulse Oximetry 98 98 98 12/21/19 06:30 12/21/19 08:00 Temperature 97.5 F L 98.1 F Pulse Rate Pulse Rate [Right] 80 81 Respiratory Rate 26 H 24 Blood Pressure Blood Pressure [Right Arm] 140/60 150/71 H 02 Sat by Pulse Oximetry 97 96 I & O for Last 24 hours: Intake & Output 12/18/19 12/19/19 12/20/19 12/21/19 23:59 23:59 23:59 23:59 Intake Total 240 / 240 Output Total 450 / 450 Balance -210 / -210 Weight 170 lb 191 lb 2 oz - Constitutional no acute distress (appears not to feel well but is conversant) - *Routine HEENT Exam Head: Present: normocephalic Eye: Present: EOMI ENT: Present: mucous membranes moist - *Routine Neck Exam Present: supple. Absent: lymphadenopathy - *Routine Respiratory Exam Present: crackles (bibasilar), diminished air movement (in left base). Absent: wheezes - *Routine Cardiovascular Exam Present: RRR - *Routine Abdominal Exam Present: soft, normoactive bowel sounds. Absent: tenderness - *Routine Extremities Exam Present: edema (1+ arms and legs). Absent: cyanosis, clubbing - *Routine Skin Exam Present: warm. Absent: rash - *Routine Neurological Exam Present: alert, oriented X3 Assessment and Plan (1) Acute on chronic renal failure Current visit: Yes Status: Acute Category: Medical Code(s): N17.9 - Acute kidney failure, unspecified; N18.9 - Chronic kidney disease, unspecified (2) Elevated troponin Current visit: Yes Status: Acute Category: Medical Code(s): R79.89 - Other specified abnormal findings of blood chemistry (3) Hypoglycemia Current visit: Yes Status: Acute Category: Medical Code(s): E16.2 - Hypoglycemia, unspecified (4) Hypothermia Current visit: Yes Status: Acute Qualifiers: Encounter type: initial encounter Qualified Code(s): T68.XXXA - Hypothermia, initial encounter Category: Medical Code(s): T68.XXXA - Hypothermia, initial encounter (5) Pleural effusion, left Current visit: Yes Status: Acute Category: Medical Code(s): J90 - Pleural effusion, not elsewhere classified (6) Congestive heart failure Current visit: No Status: Acute Qualifiers: Heart failure type: unspecified Heart failure chronicity: acute Qualified Code(s): I50.9 - Heart failure, unspecified Category: Medical Code(s): I50.9 - Heart failure, unspecified (7) Coronary artery disease Current visit: No Status: Acute Category: Medical Code(s): I25.10 - Atherosclerotic heart disease of [place] coronary artery without angina pectoris (8) History of CVA (cerebrovascular accident) Current visit: No Status: Acute Category: Medical Code(s): Z86.73 - Personal history of transient ischemic attack (TIA), and cerebral infarction without residual deficits (9) Hyperlipidemia Current visit: No Status: Acute Category: Medical Code(s): E78.5 - Hyperlipidemia, unspecified (10) Hypothyroidism Current visit: No Status: Acute Category: Medical Code(s): E03.9 - Hypothyroidism, unspecified (11) HTN (hypertension) Current visit: No Status: Chronic Category: Medical Code(s): I10 - Essential (primary) hypertension (12) Type 2 diabetes mellitus Current visit: No Status: Chronic Category: Medical Code(s): E11.9 - Type 2 diabetes mellitus without complications (13) Elevated brain natriuretic peptide (BNP) level Current visit: Yes Status: Acute Category: Medical Code(s): R79.89 - Other specified abnormal findings of blood chemistry (14) Anemia Current visit: Yes Status: Acute Category: Medical Code(s): D64.9 - Anemia, unspecified (15) History of coronary angioplasty with insertion of stent Current visit: Yes Status: Acute Category: Surgical Code(s): Z95.5 - Presence of coronary angioplasty implant and graft (16) Hyponatremia Current visit: Yes Status: Acute Category: Medical Code(s): E87.1 - Hypo- osmolality and hyponatremia - Assessment and plan all Dx Assessment and Plan for all problems:: Patient admitted for further evaluation and treatment of her shortness of breath. Her hypothermia is a concerning sign. Her temp has improved. She was given a dose of Lasix and NTG paste overnight. Plan to monitor I/O's closely. Need records from [facility]. Will not give Lantus and will use low intensity sliding scale due to persistent hypoglycemia. Await culture results, monitor H/H. Home medication list in this H&P has not been verified and may not be correct.
[2019-12-22 06:44] LABS: Basophils # 0.1 K/mm3 (0-0.2); Basophils % 0.4 % (0.1-2.0); Eosinophils # 0.2 K/mm3 (0.0-0.4); Eosinophils % 1.7 % (0.1-12.0); Hemoglobin 8.3 g/dL (12.2-16.2); Lymphocytes # 1.1 K/mm3 (0.7-4.5); Mean Corpuscular HGB Conc 31.7 g/dL (31.8-35.4); Mean Corpuscular Volume 97.3 fl (81-99); Mean Platelet Volume 12.1 fl (7.4-10.4); Monocytes # 0.7 K/mm3 (0.1-1.0); Monocytes % 6.3 % (1.7-9.3); Neutrophils # 8.7 K/mm3 (1.8-7.8); Neutrophils % 81.5 % (37.0-80.0); Platelet Count 164 K/mm3 (142-424); Red Blood Count 2.68 M/mm3 (4.20-5.40); Red Cell Distribution Width 14.8 % (11.5-17.5); White Blood Count 10.7 K/mm3 (4.8-10.8)
--- NOTE | 2019-12-22 07:11 | Pharmacy Consult Notes ---
[facility] Pharmacy VTE Monitoring - Patient Demographics Admission date: 12/21/19 Report Date: 12/22/19 Time: 07:11 Allergies/Adverse Reactions: Patient Allergies rosuvastatin [From CRESTOR] Allergy (Mild, Verified 05/08/19 13:48) Height: 1.7 m Weight: 81.788 kg Patient Problems: Current Active Problems Hypoglycemia (Acute) Hypothermia (Acute) Acute renal failure (Acute) Pleural effusion, left (Acute) Elevated troponin (Acute) Acute on chronic renal failure (Acute) Elevated brain natriuretic peptide (BNP) level (Acute) Anemia (Acute) History of coronary angioplasty with insertion of stent (Acute) Hyponatremia (Acute) - VTE Risk Labs: VTE Related Lab Results Hgb 8.3 g/dL (12.2-16.2) L 12/22/19 06:22 Hct 26.0 % (37.0-47.0) L 12/22/19 06:22 Plt Count 164 K/mm3 (142-424) 12/22/19 06:22 BUN 78 mg/dL (7-18) H 12/21/19 03:25 Creatinine 4.41 mg/dL (0.55-1.02) H 12/21/19 03:25 Estimated Creat Clear 13 mL/min (50-200) 12/21/19 03:25 Was VTE Risk Assessment Performed: Yes VTE Risk Level: Moderate Risk - Prophylaxis VTE Prophylaxis Ordered?: Yes Types of VTE Prophylaxis: TEDS Knee High Location of Applied Device: Bilateral Lower Extremeties
[2019-12-22 08:19] LABS: Albumin Level 1.7 gm/dL (3.4-5.0); Albumin/Globulin Ratio 0.6 (1.1-1.8); Anion Gap 14.9 mEq/L (5-15); Bilirubin,Total 0.3 mg/dL (0.2-1.0); Calcium 7.2 mg/dL (8.5-10.1); Globulin 2.8 gm/dl (1.3-3.2); Total Protein,Serum 4.5 gm/dL (6.4-8.2)
--- NOTE | 2019-12-22 08:48 | Progress Note ---
<Edna Virgen - Last Filed: 12/22/19 08:39> Internal Medicine - PN: Subj *Date: 12/22/19 *Time: 08:39 Interval history: Patient is feeling better today. She is able to sit up in a chair and eat her breakfast. She states she has no appetite and has a fullness all of the time. She wonders what this is. She denies heartburn/ reflux. She denies nausea and vomiting. She had a good bowel movement yesterday. She would like to have her Bailon catheter out. She is short of breath with any exertion. She denies chest pain. Exam Vital signs and Labs for Last 24 Hours: Temp Pulse Resp BP Pulse Ox 97.6 F 84 20 135/50 L 95 12/22/19 08:00 12/22/19 08:00 12/22/19 08:00 12/22/19 08:00 12/22/19 08:00 Laboratory Results - last 24 hr 12/21/19 02:30: POC Glucose 249 H 12/21/19 10:54: POC Glucose 299 H 12/21/19 16:29: POC Glucose 267 H 12/21/19 20:21: POC Glucose 236 H 12/22/19 02:49: POC Glucose 139 H 12/22/19 05:36: POC Glucose 185 H 12/22/19 06:22: WBC 10.7 D, RBC 2.68 L, Hgb 8.3 L, Hct 26.0 L, MCV 97.3, MCH 30.9, MCHC 31.7 L, RDW 14.8, Plt Count 164, MPV 12.1 H, Neut % (Auto) 81.5 H, Lymph % (Auto) 10.0, [place] % (Auto) 6.3, Eos % (Auto) 1.7, Baso % (Auto) 0.4, Neut # (Auto) 8.7 H, Lymph # (Auto) 1.1, [place] # (Auto) 0.7, Eos # (Auto) 0.2, Baso # (Auto) 0.1 12/22/19 06:22: Sodium 128 L, Potassium 4.9, Chloride 97 L, Carbon Dioxide 21, Anion Gap 14.9, BUN 71 H, Creatinine 3.87 H, Estimated Creat Clear 13, Estimated GFR 11 L*, Est GFR ( Amer) 13 L*, Glucose 161 H, Calcium 7.2 L, Total Bilirubin 0.3, AST 24, ALT 24, Alkaline Phosphatase 77, Total Protein 4.5 L, Albumin 1.7 L, Globulin 2.8, Albumin/Globulin Ratio 0.6 L 12/22/19 07:24: POC Glucose 239 H I & O for Last 24 hours: Intake & Output 12/19/19 12/20/19 12/21/19 12/22/19 11:59 11:59 11:59 11:59 Intake Total 240 / 240 2146 / 2146 Output Total 450 / 450 650 / 650 Balance -210 / -210 1496 / 1496 Weight 191 lb 2 oz 180 lb 5 oz Microbiology Reports for the Last 24 Hours: Microbiology 12/21/19 00:15 Blood Blood Culture - Preliminary 12/21/19 00:15 Blood Blood Culture - Preliminary Radiology Reports for the Last 24 Hours: Chest x-ray 12/21/2019 IMPRESSION: Findings consistent with left basilar infiltrate and/or atelectasis with bilateral pleural effusions left greater than right. Mild CHF/plasma volume overload without acute pulmonary edema. - Constitutional no acute distress Comments: Sitting up in recliner in her room and has just completed her breakfast. She appears comfortable. Somewhat dyspneic with talking. Granddaughter and daughter at bedside. - *Routine Respiratory Exam Present: wheezes (Bilaterally) - *Routine Cardiovascular Exam Present: RRR - *Routine Abdominal Exam Present: soft, normoactive bowel sounds. Absent: tenderness - *Routine Extremities Exam Absent: edema, calf tenderness - *Routine Neurological Exam Present: alert, oriented X3 Assessment and Plan (1) Acute on chronic renal failure Current visit: Yes Status: Acute Category: Medical Code(s): N17.9 - Acute kidney failure, unspecified; N18.9 - Chronic kidney disease, unspecified (2) Elevated troponin Current visit: Yes Status: Acute Category: Medical Code(s): R79.89 - Other specified abnormal findings of blood chemistry (3) Hypoglycemia Current visit: Yes Status: Acute Category: Medical Code(s): E16.2 - Hypoglycemia, unspecified (4) Hypothermia Current visit: Yes Status: Acute Qualifiers: Encounter type: initial encounter Qualified Code(s): T68.XXXA - Hypothermia , initial encounter Category: Medical Code(s): T68.XXXA - Hypothermia, initial encounter (5) Pleural effusion, left Current visit: Yes Status: Acute Category: Medical Code(s): J90 - Pleural effusion, not elsewhere classified (6) Congestive heart failure Current visit: No Status: Acute Qualifiers: Heart failure type: unspecified Heart failure chronicity: acute Qualified Code(s): I50.9 - Heart failure, unspecified Category: Medical Code(s): I50.9 - Heart failure, unspecified (7) Coronary artery disease Current visit: No Status: Acute Category: Medical Code(s): I25.10 - Atherosclerotic heart disease of [place] coronary artery without angina pectoris (8) History of CVA (cerebrovascular accident) Current visit: No Status: Acute Category: Medical Code(s): Z86.73 - Personal history of transient ischemic attack (TIA), and cerebral infarction without residual deficits (9) Hyperlipidemia Current visit: No Status: Acute Category: Medical Code(s): E78.5 - Hyperlipidemia, unspecified (10) Hypothyroidism Current visit: No Status: Acute Category: Medical Code(s): E03.9 - Hypothyroidism, unspecified (11) HTN (hypertension) Current visit: No Status: Chronic Category: Medical Code(s): I10 - Essent ial (primary) hypertension (12) Type 2 diabetes mellitus Current visit: No Status: Chronic Category: Medical Code(s): E11.9 - Type 2 diabetes mellitus without complications (13) Elevated brain natriuretic peptide (BNP) level Current visit: Yes Status: Acute Category: Medical Code(s): R79.89 - Other specified abnormal findings of blood chemistry (14) Anemia Current visit: Yes Status: Acute Category: Medical Code(s): D64.9 - Anem ia, unspecified (15) History of coronary angioplasty with insertion of stent Current visit: Yes Status: Acute Category: Surgical Code(s): Z95.5 - Presence of coronary angioplasty implant and graft (16) Hyponatremia Current visit: Yes Status: Acute Category: Medical Code(s): E87.1 - Hypo- osmolality and hyponatremia - Assessment and plan all Dx Assessment and Plan for all problems:: Patient is making improvement. Sodium low at 128 and will stop the D5W. Will remove Bailon catheter with strict I&O. Renal function is improving <Wirtz,Rubén - Last Filed: 12/22/19 08:55> Internal Medicine - PN: Subj *Date: 12/22/19 *Time: 08:54 Exam Vital signs and Labs for Last 24 Hours: Temp Pulse Resp BP Pulse Ox 97.6 F 84 20 135/50 L 95 12/22/19 08:00 12/22/19 08:00 12/22/19 08:00 12/22/19 08:00 12/22/19 08:00 Laboratory Results - last 24 hr 12/21/19 02:30: POC Glucose 249 H 12/21/19 10:54: POC Glucose 299 H 12/21/19 16:29: POC Glucose 267 H 12/21/19 20:21: POC Glucose 236 H 12/22/19 02:49: POC Glucose 139 H 12/22/19 05:36: POC Glucose 185 H 12/22/19 06:22: WBC 10.7 D, RBC 2.68 L, Hgb 8.3 L, Hct 26.0 L, MCV 97.3, MCH 30.9, MCHC 31.7 L, RDW 14.8, Plt Count 164, MPV 12.1 H, Neut % (Auto) 81.5 H, Lymph % (Auto) 10.0, [place] % (Auto) 6.3, Eos % (Auto) 1.7, Baso % (Auto) 0.4, Neut # (Auto) 8.7 H, Lymph # (Auto) 1.1, [place] # (Auto) 0.7, Eos # (Auto) 0.2, Baso # (Auto) 0.1 12/22/19 06:22: Sodium 128 L, Potassium 4.9, Chloride 97 L, Carbon Dioxide 21, Anion Gap 14.9, BUN 71 H, Creatinine 3.87 H, Estimated Creat Clear 13, Estimated GFR 11 L*, Est GFR ( Amer) 13 L*, Glucose 161 H, Calcium 7.2 L, Total Bilirubin 0.3, AST 24, ALT 24, Alkaline Phosphatase 77, Total Protein 4.5 L, Albumin 1.7 L, Globulin 2.8, Albumin/Globulin Ratio 0.6 L 12/22/19 07:24: POC Glucose 239 H I & O for Last 24 hours: Intake & Output 12/19/19 12/20/19 12/21/19 12/22/19 23:59 23:59 23:59 23:59 Intake Total 480 / 720 1906 / 1906 Output Total 450 / 450 650 / 650 Balance 30 / 270 1256 / 1256 Weight 170 lb 191 lb 2 oz 180 lb 5 oz Microbiology Reports for the Last 24 Hours: Microbiology 12/21/19 00:15 Blood Blood Culture - Preliminary 12/21/19 00:15 Blood Blood Culture - Preliminary Assessment and Plan (1) Acute on chronic renal failure Current visit: Yes Status: Acute Category: Medical Code(s): N17.9 - Acute kidney failure, unspecified; N18.9 - Chronic kidney disease, unspecified (2) Elevated troponin Current visit: Yes Status: Acute Category: Medical Code(s): R79.89 - Other specified abnormal findings of blood chemistry (3) Hypoglycemia Current visit: Yes Status: Acute Category: Medical Code(s): E16.2 - Hypoglycemia, unspecified (4) Hypothermia Current visit: Yes Status: Acute Qualifiers: Encounter type: initial encounter Qualified Code(s): T68.XXXA - Hypothermia, initial encounter Category: Medical Code(s): T68.XXXA - Hypothermia, initial encounter (5) Pleural effusion, left Current visit: Yes Status: Acute Category: Medical Code(s): J90 - Pleural effusion, not elsewhere classified (6) Congestive heart failure Current visit: No Status: Acute Qualifiers: Heart failure type: unspecified Heart failure chronicity: acute Qualified Code(s): I50.9 - Heart failure, unspecified Category: Medical Code(s): I50.9 - Heart failure, unspecified (7) Coronary artery disease Current visit: No Status: Acute Category: Medical Code(s): I25.10 - Atherosclerotic heart disease of [place] coronary artery without angina pectoris (8) History of CVA (cerebrovascular accident) Current visit: No Status: Acute Category: Medical Code(s): Z86.73 - Personal history of transient ischemic attack (TIA), and cerebral infarction without residual deficits (9) Hyperlipidemia Current visit: No Status: Acute Category: Medical Code(s): E78.5 - Hyperlipidemia, unspecified (10) Hypothyroidism Current visit: No Status: Acute Category: Medical Code(s): E03.9 - Hypothyroidism, unspecified (11) HTN (hypertension) Current visit: No Status: Chronic Category: Medical Code(s): I10 - Essential (primary) hypertension (12) Type 2 diabetes mellitus Current visit: No Status: Chronic Category: Medical Code(s): E11.9 - Type 2 diabetes mellitus without complications (13) Elevated brain natriuretic peptide (BNP) level Current visit: Yes Status: Acute Category: Medical Code(s): R79.89 - Other specified abnormal findings of blood chemistry (14) Anemia Current visit: Yes Status: Acute Category: Medical Code(s): D64.9 - Anemia, unspecified (15) History of coronary angioplasty with insertion of stent Current visit: Yes Status: Acute Category: Surgical Code(s): Z95.5 - Presence of coronary angioplasty implant and graft (16) Hyponatremia Current visit: Yes Status: Acute Category: Medical Code(s): E87.1 - Hypo- osmolality and hyponatremia - Assessment and plan all Dx Assessment and Plan for all problems:: Saw patient, agree with above note.
[2019-12-23 06:42] LABS: Eosinophils % 0.1 % (0.1-12.0); Hematocrit 29.1 % (37.0-47.0); Lymphocytes # 0.9 K/mm3 (0.7-4.5); Lymphocytes % 3.3 % (10-50); Mean Corpuscular HGB Conc 30.9 g/dL (31.8-35.4); Mean Corpuscular Volume 99.1 fl (81-99); Mean Platelet Volume 12.4 fl (7.4-10.4); Monocytes # 0.9 K/mm3 (0.1-1.0); Monocytes % 3.5 % (1.7-9.3); Platelet Count 185 K/mm3 (142-424); Red Blood Count 2.93 M/mm3 (4.20-5.40); Red Cell Distribution Width 14.5 % (11.5-17.5); White Blood Count 25.8 K/mm3 (4.8-10.8)
[2019-12-23 06:54] LABS: Anion Gap 14.9 mEq/L (5-15); Calcium 7.6 mg/dL (8.5-10.1)
--- NOTE | 2019-12-23 08:45 | Progress Note ---
<Edna Virgen - Last Filed: 12/23/19 09:11> Internal Medicine - PN: Subj *Date: 12/23/19 *Time: 09:11 Interval history: Patient's main complaint this morning is that she is short of breath. She is dyspneic with any exertion. She denies chest pain. She feels the fullness in her stomach is better. She is trying to eat. Bowels did move yesterday. She feels that she is voiding without difficulty. She slept at intervals during the night. White count has elevated to 25.8 this morning. Hemoglobin is 9 with hematocrit of 29.1; blood chemistries reveal sodium low at 128, potassium 4.9, with a BUN of 69 and creatinine of 3.37. BNP is 844. Blood culture show gram-positive cocci in clusters not staph aureus. ID is pending Exam Vital signs and Labs for Last 24 Hours: Temp Pulse Resp BP Pulse Ox 97.4 F L 83 16 129/61 92 L 12/23/19 08:00 12/23/19 08:00 12/23/19 08:00 12/23/19 08:00 12/23/19 08:00 Laboratory Results - last 24 hr 12/22/19 11:39: POC Glucose 196 H 12/22/19 16:38: POC Glucose 164 H 12/22/19 21:15: POC Glucose 192 H 12/23/19 03:12: POC Glucose 158 H 12/23/19 05:59: POC Glucose 221 H 12/23/19 06:28: WBC 25.8 H* D, RBC 2.93 L, Hgb 9.0 L, Hct 29.1 L, MCV 99.1 H, MCH 30.6, MCHC 30.9 L, RDW 14.5, Plt Count 185, MPV 12.4 H, Neut % (Auto) 93.0 H , Lymph % (Auto) 3.3 L, [place] % (Auto) 3.5, Eos % (Auto) 0.1, Baso % (Auto) 0.0 L , Neut # (Auto) 24.0 H, Lymph # (Auto) 0.9, [place] # (Auto) 0.9, Eos # (Auto) 0.0, Baso # (Auto) 0.0 12/23/19 06:28: Sodium 128 L, Potassium 4.9, Chloride 97 L, Carbon Dioxide 21, Anion Gap 14.9, BUN 69 H, Creatinine 3.37 H, Estimated Creat Clear 16, Estimated GFR 13 L*, Est GFR ( Amer) 16 L* D, Glucose 184 H, Calcium 7.6 L 12/23/19 06:28: B-Natriuretic Peptide 844 H 12/23/19 06:28: Magnesium 2.1 I & O for Last 24 hours: Intake & Output 12/20/19 12/21/19 12/22/19 12/23/19 11:59 11:59 11:59 11:59 Intake Total 240 / 240 2315 / 2315 1340 / 1340 Output Total 450 / 450 850 / 850 600 / 600 Balance -210 / -210 1465 / 1465 740 / 740 Weight 191 lb 2 oz 180 lb 5 oz 182 lb 4 oz Microbiology Reports for the Last 24 Hours: Microbiology 12/21/19 00:15 Blood Blood Culture - Preliminary - Constitutional Comments: Dyspneic with talking - *Routine Respiratory Exam Comments: Bilateral crackles anteriorly. Bibasilar crackles posteriorly - *Routine Cardiovascular Exam Present: RRR - *Routine Abdominal Exam Present: soft, normoactive bowel sounds. Absent: tenderness, distended - *Routine Extremities Exam Absent: edema, calf tenderness - *Routine Neurological Exam Present: alert, oriented X3 Assessment and Plan (1) Acute on chronic renal failure Current visit: Yes Status: Acute Category: Medical Code(s): N17.9 - Acute kidney failure, unspecified; N18.9 - Chronic kidney disease, unspecified (2) Elevated troponin Current visit: Yes Status: Acute Category: Medical Code(s): R79.89 - Other specified abnormal findings of blood chemistry (3) Hypoglycemia Current visit: Yes Status: Acute Category: Medical Code(s): E16.2 - Hypoglycemia, unspecified (4) Hypothermia Current visit: Yes Status: Acute Qualifiers: Encounter type: initial encounter Qualified Code(s): T68.XXXA - Hypothermia, initial encounter Category: Medical Code(s): T68.XXXA - Hypothermia, initial encounter (5) Pleural effusion, left Current visit: Yes Status: Acute Category: Medical Code(s): J90 - Pleural effusion, not elsewhere classified (6) Congestive heart failure Current visit: No Status: Acute Qualifiers: Heart failure type: unspecified Heart failure chronicity: acute Qualified Code(s): I50.9 - Heart failure, unspecified Category: Medical Code(s): I50.9 - Heart failure, unspecified (7) Coronary artery disease Current visit: No Status: Acute Category: Medical Code(s): I25.10 - Atherosclerotic heart disease of [place] coronary artery without angina pectoris (8) History of CVA (cerebrovascular accident) Current visit: No Status: Acute Category: Medical Code(s): Z86.73 - Personal history of transient ischemic attack (TIA), and cerebral infarction without residual deficits (9) Hyperlipidemia Current visit: No Status: Acute Category: Medical Code(s): E78.5 - Hyperlipidemia, unspecified (10) Hypothyroidism Current visit: No Status: Acute Category: Medical Code(s): E03.9 - Hypothyroidism, unspecified (11) HTN (hypertension) Current visit: No Status: Chronic Category: Medical Code(s): I10 - Essential (primary) hypertension (12) Type 2 diabetes mellitus Current visit: No Status: Chronic Category: Medical Code(s): E11.9 - Type 2 diabetes mellitus without complications (13) Elevated brain natriuretic peptide (BNP) level Current visit: Yes Status: Acute Category: Medical Code(s): R79.89 - Other specified abnormal findings of blood chemistry (14) Anemia Current visit: Yes Status: Acute Category: Medical Code(s): D64.9 - Anemia, unspecified (15) History of coronary angioplasty with insertion of stent Current visit: Yes Status: Acute Category: Surgical Code(s): Z95.5 - Presence of coronary angioplasty implant and graft (16) Hyponatremia Current visit: Yes Status: Acute Category: Medical Code(s): E87.1 - Hypo- osmolality and hyponatremia (17) Leukocytosis Current visit: Yes Status: Acute Category: Medical Code(s): D72.829 - Elevated white blood cell count, unspecified - Assessment and plan all Dx Assessment and Plan for all problems:: Blood cultures ID pending. Will repeat chest x-ray and start IV antibiotics. Will also give a dose of Lasix today. <Rubén Winkler - Last Filed: 12/23/19 09:18> Internal Medicine - PN: Subj *Date: 12/23/19 *Time: 09:17 Exam Vital signs and Labs for Last 24 Hours: Temp Pulse Resp BP Pulse Ox 97.4 F L 83 16 129/61 92 L 12/23/19 08:00 12/23/19 08:00 12/23/19 08:00 12/23/19 08:00 12/23/19 08:00 Laboratory Results - last 24 hr 12/22/19 11:39: POC Glucose 196 H 12/22/19 16:38: POC Glucose 164 H 12/22/19 21:15: POC Glucose 192 H 12/23/19 03:12: POC Glucose 158 H 12/23/19 05:59: POC Glucose 221 H 12/23/19 06:28: WBC 25.8 H* D, RBC 2.93 L, Hgb 9.0 L, Hct 29.1 L, MCV 99.1 H, MCH 30.6, MCHC 30.9 L, RDW 14.5, Plt Count 185, MPV 12.4 H, Neut % (Auto) 93.0 H , Lymph % (Auto) 3.3 L, [place] % (Auto) 3.5, Eos % (Auto) 0.1, Baso % (Auto) 0.0 L , Neut # (Auto) 24.0 H, Lymph # (Auto) 0.9, [place] # (Auto) 0.9, Eos # (Auto) 0.0, Baso # (Auto) 0.0 12/23/19 06:28: Sodium 128 L, Potassium 4.9, Chloride 97 L, Carbon Dioxide 21, Anion Gap 14.9, BUN 69 H, Creatinine 3.37 H, Estimated Creat Clear 16, Estimated GFR 13 L*, Est GFR ( Amer) 16 L* D, Glucose 184 H, Calcium 7.6 L 12/23/19 06:28: B-Natriuretic Peptide 844 H 12/23/19 06:28: Magnesium 2.1 I & O for Last 24 hours: Intake & Output 12/20/19 12/21/19 12/22/19 12/23/19 23:59 23:59 23:59 23:59 Intake Total 480 / 720 3035 / 3035 380 / 380 Output Total 450 / 450 1000 / 1250 450 / 450 Balance 30 / 270 2035 / 1785 -70 / -70 Weight 170 lb 191 lb 2 oz 180 lb 12.465 oz 182 lb 4 oz Microbiology Reports for the Last 24 Hours: Microbiology 12/21/19 00:15 Blood Blood Culture - Preliminary Gram Positive Cocci 12/21/19 00:15 Blood Blood Culture - Preliminary Gram Positive Cocci Assessment and Plan (1) Acute on chronic renal failure Current visit: Yes Status: Acute Category: Medical Code(s): N17.9 - Acute kidney failure, unspecified; N18.9 - Chronic kidney disease, unspecified (2) Elevated troponin Current visit: Yes Status: Acute Category: Medical Code(s): R79.89 - Other specified abnormal findings of blood chemistry (3) Hypoglycemia Current visit: Yes Status: Acute Category: Medical Code(s): E16.2 - Hypoglycemia, unspecified (4) Hypothermia Current visit: Yes Status: Acute Qualifiers: Encounter type: initial encounter Qualified Code(s): T68.XXXA - Hypothermia, initial encounter Category: Medical Code(s): T68.XXXA - Hypothermia, initial encounter (5) Pleural effusion, left Current visit: Yes Status: Acute Category: Medical Code(s): J90 - Pleural effusion, not elsewhere classified (6) Congestive heart failure Current visit: No Status: Acute Qualifiers: Heart failure type: unspecified Heart failure chronicity: acute Qualified Code(s): I50.9 - Heart failure, unspecified Category: Medical Code(s): I50.9 - Heart failure, unspecified (7) Coronary artery disease Current visit: No Status: Acute Category: Medical Code(s): I25.10 - Atherosclerotic heart disease of [place] coronary artery without angina pectoris (8) History of CVA (cerebrovascular accident) Current visit: No Status: Acute Category: Medical Code(s): Z86.73 - Personal history of transient ischemic attack (TIA), and cerebral infarction without residual deficits (9) Hyperlipidemia Current visit: No Status: Acute Category: Medical Code(s): E78.5 - Hyperlipidemia, unspecified (10) Hypothyroidism Current visit: No Status: Acute Category: Medical Code(s): E03.9 - Hypothyroidism, unspecified (11) HTN (hypertension) Current visit: No Status: Chronic Category: Medical Code(s): I10 - Essential (primary) hypertension (12) Type 2 diabetes mellitus Current visit: No Status: Chronic Category: Medical Code(s): E11.9 - Type 2 diabetes mellitus without complications (13) Elevated brain natriuretic peptide (BNP) level Current visit: Yes Status: Acute Category: Medical Code(s): R79.89 - Other specified abnormal findings of blood chemistry (14) Anemia Current visit: Yes Status: Acute Category: Medical Code(s): D64.9 - Anemia, unspecified (15) History of coronary angioplasty with insertion of stent Current visit: Yes Status: Acute Category: Surgical Code(s): Z95.5 - Presence of coronary angioplasty implant and graft (16) Hyponatremia Current visit: Yes Status: Acute Category: Medical Code(s): E87.1 - Hypo- osmolality and hyponatremia (17) Leukocytosis Current visit: Yes Status: Acute Category: Medical Code(s): D72.829 - Elevated white blood cell count, unspecified - Assessment and plan all Dx Assessment and Plan for all problems:: Saw patient, agree with above note.
[2019-12-23 09:19] LABS: Eosinophils % 1 % (0-3); Lymphocytes % 4 % (10-50); Monocytes % 3 % (2-9); Neutrophils % 92 % (42-76); Total Cells Counted 100
[2019-12-23 09:20] LABS: Hypochromasia 1+
--- NOTE | 2019-12-24 08:18 | Progress Note ---
<Edna Virgen - Last Filed: 12/24/19 08:15> Internal Medicine - PN: Subj *Date: 12/24/19 *Time: 08:15 Interval history: Patient states her breathing is better. She had no more anxiety issues with ambulation. She slept well during the night and was assisted up into a chair at 6:30 AM this morning. She does not want any breakfast. She continues to have that fulfilling in her abdomen. Her bowels did move yesterday. She is voiding without difficulty. She denies chest pain. She is on oxygen at 2 L/min. She had repeat blood cultures done yesterday. Labs from this a.m. are pending. She is on oxygen at present.Chest x-ray yesterday revealed persistent but i mproved left lower lobe airspace disease with small bilateral effusions. Exam Vital signs and Labs for Last 24 Hours: Temp Pulse Resp BP Pulse Ox 97.6 F 81 17 131/62 95 12/24/19 08:00 12/24/19 08:00 12/24/19 08:00 12/24/19 08:00 12/24/19 08:00 Laboratory Results - last 24 hr 12/23/19 06:28: Total Counted 100, Neutrophils % (Manual) 92 H, Lymphocytes % (Manual) 4 L, Monocytes % (Manual) 3, Eosinophils % (Manual) 1, Platelet Estimate Normal, Hypochromasia 1+, Poikilocytosis 1+, [place] Cells 1+ 12/23/19 10:15: Lactate 1.1 12/23/19 11:13: POC Glucose 184 H 12/23/19 17:14: POC Glucose 183 H 12/23/19 20:43: POC Glucose 136 H 12/24/19 06:23: POC Glucose 251 H I & O for Last 24 hours: Intake & Output 12/21/19 12/22/19 12/23/19 12/24/19 11:59 11:59 11:59 11:59 Intake Total 240 / 240 2315 / 2315 1340 / 1340 300 / 300 Output Total 450 / 450 850 / 850 600 / 600 150 / 150 Balance -210 / -210 1465 / 1465 740 / 740 150 / 150 Weight 191 lb 2 oz 180 lb 5 oz 182 lb 4 oz 180 lb 9 oz Microbiology Reports for the Last 24 Hours: Microbiology 12/21/19 00:15 Blood Blood Culture - Preliminary Staphylococcus capitis 12/21/19 00:15 Blood Blood Culture - Preliminary Gram Positive Cocci - Constitutional no acute distress Comments: Sitting in recliner and appears comfortable. Dyspnea not obvious with conversation. - *Routine Respiratory Exam Present: crackles (Bibasilar) - *Routine Cardiovascular Exam Present: RRR - *Routine Abdominal Exam Present: soft, normoactive bowel sounds. Absent: tenderness - *Routine Extremities Exam Absent: edema, calf tenderness - *Routine Neurological Exam Present: alert, oriented X3 Assessment and Plan (1) Acute on chronic renal failure Current visit: Yes Status: Acute Category: Medical Code(s): N17.9 - Acute kidney failure, unspecified; N18.9 - Chronic kidney disease, unspecified (2) Elevated troponin Current visit: Yes Status: Acute Category: Medical Code(s): R79.89 - Other specified abnormal findings of blood chemistry (3) Hypoglycemia Current visit: Yes Status: Acute Category: Medical Code(s): E16.2 - Hypoglycemia, unspecified (4) Hypothermia Current visit: Yes Status: Acute Qualifiers: Encounter type: initial encounter Qualified Code(s): T68.XXXA - Hypothermia, initial encounter Category: Medical Code(s): T68.XXXA - Hypothermia, initial encounter (5) Pleural effusion, left Current visit: Yes Status: Acute Category: Medical Code(s): J90 - Pleural effusion, not elsewhere classified (6) Congestive heart failure Current visit: No Status: Acute Qualifiers: Heart failure type: unspecified Heart failure chronicity: acute Qualified Code(s): I50.9 - Heart failure, unspecified Category: Medical Code(s): I50.9 - Heart failure, unspecified (7) Coronary artery disease Current visit: No Status: Acute Category: Medical Code(s): I25.10 - Atherosclerotic heart disease of [place] coronary artery without angina pectoris (8) History of CVA (cerebrovascular accident) Current visit: No Status: Acute Category: Medical Code(s): Z86.73 - Personal history of transient ischemic attack (TIA), and cerebral infarction without residual deficits (9) Hyperlipidemia Current visit: No Status: Acute Category: Medical Code(s): E78.5 - Hyperl ipidemia, unspecified (10) Hypothyroidism Current visit: No Status: Acute Category: Medical Code(s): E03.9 - Hypothyroidism, unspecified (11) HTN (hypertension) Current visit: No Status: Chronic Category: Medical Code(s): I10 - Essential (primary) hypertension (12) Type 2 diabetes mellitus Current visit: No Status: Chronic Category: Medical Code(s): E11.9 - Type 2 diabetes mellitus without complications (13) Elevated brain natriuretic peptide (BNP) level Current visit: Yes Status: Acute Category: Medical Code(s): R79.89 - Other specified abnormal findings of blood chemistry (14) Anemia Current visit: Yes Status: Acute Category: Medical Code(s): D64.9 - Anemia, unspecified (15) History of coronary angioplasty with insertion of stent Current visit: Yes Status: Acute Category: Surgical Code(s): Z95.5 - Presence of coronary angioplasty implant and graft (16) Hyponatremia Current visit: Yes Status: Acute Category: Medical Code(s): E87.1 - Hypo- osmolality and hyponatremia (17) Leukocytosis Current visit: Yes Status: Acute Category: Medical Code(s): D72.829 - Elevated white blood cell count, unspecified (18) Positive blood cultures Current visit: Yes Status: Acute Category: Medical Code(s): R78.81 - Bacteremia (19) Renal failure, acute on chronic Current visit: Yes Status: Acute Category: Medical Code(s): N17.9 - Acute kidney failure, unspecified; N18.9 - Chronic kidney disease, unspecified - Assessment and plan all Dx Assessment and Plan for all problems:: Patient has been started on Rocephin. Continue with respiratory care. Await lab results. <Rubén Winkler - Last Filed: 12/24/19 09:13> Internal Medicine - PN: Subj *Date: 12/24/19 *Time: 09:12 Exam Vital signs and Labs for Last 24 Hours: Temp Pulse Resp BP Pulse Ox 97.6 F 81 17 131/62 95 12/24/19 08:00 12/24/19 08:00 12/24/19 08:00 12/24/19 08:00 12/24/19 08:00 Laboratory Results - last 24 hr 12/23/19 06:28: Total Counted 100, Neutrophils % (Manual) 92 H, Lymphocytes % (Manual) 4 L, Monocytes % (Manual) 3, Eosinophils % (Manual) 1, Platelet Estimate Normal, Hypochromasia 1+, Poikilocytosis 1+, [place] Cells 1+ 12/23/19 10:15: Lactate 1.1 12/23/19 11:13: POC Glucose 184 H 12/23/19 17:14: POC Glucose 183 H 12/23/19 20:43: POC Glucose 136 H 12/24/19 06:23: POC Glucose 251 H 12/24/19 08:10: WBC 21.6 H*, RBC 2.89 L, Hgb 8.9 L, Hct 28.9 L, MCV 100.0 H, MCH 30.9, MCHC 30.9 L, RDW 14.5, Plt Count 191, MPV 12.4 H, Neut % (Auto) 93.8 H, Lymph % (Auto) 3.1 L, [place] % (Auto) 2.8, Eos % (Auto) 0.2, Baso % (Auto) 0.1, Neut # (Auto) 20.3 H, Lymph # (Auto) 0.7, [place] # (Auto) 0.6, Eos # (Auto) 0.0, Baso # (Auto) 0.0 12/24/19 08:10: Sodium 129 L, Potassium 4.7, Chloride 98, Carbon Dioxide 22, Anion Gap 13.7, BUN 70 H, Creatinine 3.17 H, Estimated Creat Clear 16, Estimated GFR 14 L*, Est GFR ( Amer) 17 L*, Glucose 185 H, Calcium 7.7 L I & O for Last 24 hours: Intake & Output 12/21/19 12/22/19 12/23/19 12/24/19 23:59 23:59 23:59 23:59 Intake Total 480 / 720 3035 / 3035 560 / 680 120 / 120 Output Total 450 / 450 1000 / 1250 600 / 600 Balance 30 / 270 2035 / 1785 -40 / 80 120 / 120 Weight 191 lb 2 oz 180 lb 12.465 oz 182 lb 4 oz 180 lb 9 oz Microbiology Reports for the Last 24 Hours: Microbiology 12/21/19 00:15 Blood Blood Culture - Preliminary Staphylococcus capitis 12/21/19 00:15 Blood Blood Culture - Preliminary Gram Positive Cocci Assessment and Plan (1) Acute on chronic renal failure Current visit: Yes Status: Acute Category: Medical Code(s): N17.9 - Acute kidney failure, unspecified; N18.9 - Chronic kidney disease, unspecified (2) Elevated troponin Current visit: Yes Status: Acute Category: Medical Code(s): R79.89 - Other specified abnormal findings of blood chemistry (3) Hypoglycemia Current visit: Yes Status: Acute Category: Medical Code(s): E16.2 - Hypoglycemia, unspecified (4) Hypothermia Current visit: Yes Status: Acute Qualifiers: Encounter type: initial encounter Qualified Code(s): T68.XXXA - Hypothermia, initial encounter Category: Medical Code(s): T68.XXXA - Hypothermia, initial encounter (5) Pleural effusion, left Current visit: Yes Status: Acute Category: Medical Code(s): J90 - Pleural effusion, not elsewhere classified (6) Congestive heart failure Current visit: No Status: Acute Qualifiers: Heart failure type: unspecified Heart failure chronicity: acute Qualified Code(s): I50.9 - Heart failure, unspecified Category: Medical Code(s): I50.9 - Heart failure, unspecified (7) Coronary artery disease Current visit: No Status: Acute Category: Medical Code(s): I25.10 - Atherosclerotic heart disease of [place] coronary artery without angina pectoris (8) History of CVA (cerebrovascular accident) Current visit: No Status: Acute Category: Medical Code(s): Z86.73 - Personal history of transient ischemic attack (TIA), and cerebral infarction without residual deficits (9) Hyperlipidemia Current visit: No Status: Acute Category: Medical Code(s): E78.5 - Hyperlipidemia, unspecified (10) Hypothyroidism Current visit: No Status: Acute Category: Medical Code(s): E03.9 - Hypothyroidism, unspecified (11) HTN (hypertension) Current visit: No Status: Chronic Category: Medical Code(s): I10 - Essential (primary) hypertension (12) Type 2 diabetes mellitus Current visit: No Status: Chronic Category: Medical Code(s): E11.9 - Type 2 diabetes mellitus without complications (13) Elevated brain natriuretic peptide (BNP) level Current visit: Yes Status: Acute Category: Medical Code(s): R79.89 - Other specified abnormal findings of blood chemistry (14) Anemia Current visit: Yes Status: Acute Category: Medical Code(s): D64.9 - Anemia, unspecified (15) History of coronary angioplasty with insertion of stent Current visit: Yes Status: Acute Category: Surgical Code(s): Z95.5 - Presence of coronary angioplasty implant and graft (16) Hyponatremia Current visit: Yes Status: Acute Category: Medical Code(s): E87.1 - Hypo- osmolality and hyponatremia (17) Leukocytosis Current visit: Yes Status: Acute Category: Medical Code(s): D72.829 - Elevated white blood cell count, unspecified (18) Positive blood cultures Current visit: Yes Status: Acute Category: Medical Code(s): R78.81 - Bacteremia (19) Renal failure, acute on chronic Current visit: Yes Status: Acute Category: Medical Code(s): N17.9 - Acute kidney failure, unspecified; N18.9 - Chronic kidney disease, unspecified - Assessment and plan all Dx Assessment and Plan for all problems:: Saw patient, agree with above note. Plan to change to Vancomycin today and request PICC line placement. Possible discharge to [facility] tomorrow.
[2019-12-24 08:30] LABS: Anion Gap 13.7 mEq/L (5-15); Calcium 7.7 mg/dL (8.5-10.1)
[2019-12-24 09:04] LABS: Basophils % 0.1 % (0.1-2.0); Eosinophils % 0.2 % (0.1-12.0); Hematocrit 28.9 % (37.0-47.0); Hemoglobin 8.9 g/dL (12.2-16.2); Lymphocytes # 0.7 K/mm3 (0.7-4.5); Lymphocytes % 3.1 % (10-50); Mean Corpuscular HGB Conc 30.9 g/dL (31.8-35.4); Mean Platelet Volume 12.4 fl (7.4-10.4); Monocytes # 0.6 K/mm3 (0.1-1.0); Monocytes % 2.8 % (1.7-9.3); Neutrophils # 20.3 K/mm3 (1.8-7.8); Neutrophils % 93.8 % (37.0-80.0); Platelet Count 191 K/mm3 (142-424); Red Blood Count 2.89 M/mm3 (4.20-5.40); Red Cell Distribution Width 14.5 % (11.5-17.5); White Blood Count 21.6 K/mm3 (4.8-10.8)
--- NOTE | 2019-12-24 09:56 | Pharmacy Consult Notes ---
- Pharmacy Consult Date: 12/24/19 Time: 09:54 Referring provider: DR. COYNE Reason for Consult:: BASED ON PATIENT'S FACTORS, RECOMMEND STARTING WITH VANCOMYCIN 1250 MG Q48H AT THIS TIME. DUE TO PATIENT'S POOR RENAL FUNCTION, WILL OBTAIN TROUGH LEVEL PRIOR TO HER 2ND DOSE TO CHECK FOR CLEARANCE. Allergies and ADEs:: Allergies Allergy/AdvReac Type Severity Reaction Status Date / Time rosuvastatin [From [facility]] Allergy Mild Verified 05/08/19 13:48 Home Medications:: Home Medications Medication Instructions Recorded Confirmed Type Levothyroxine Sodium 75 mcg PO DAILY 03/26/18 12/22/19 History [Levothyroxine 75mcg (0.075mg) Tab] Clopidogrel Bisulfate [Plavix 75mg 75 mg PO DAILY 12/07/19 12/21/19 History Tab] Insulin NPH Hum/Reg Insulin Hm 11 unit SQ BID 12/07/19 12/21/19 History [Humulin 70/30 Kwikpen] Aspirin [Aspir 81] 81 mg PO DAILY 12/21/19 12/21/19 History Hydralazine HCl [Hydralazine HCl 25 mg PO TID 12/21/19 12/21/19 History 25mg Tablet] carvediloL [Carvedilol 6.25mg Tab] 6.25 mg PO BID 12/21/19 12/21/19 History Height: 1.7 m Weight: 81.902 kg Laboratory Results:: Laboratory Results - last 24 hr 12/23/19 10:15: Lactate 1.1 12/23/19 11:13: POC Glucose 184 H 12/23/19 17:14: POC Glucose 183 H 12/23/19 20:43: POC Glucose 136 H 12/24/19 06:23: POC Glucose 251 H 12/24/19 08:10: WBC 21.6 H*, RBC 2.89 L, Hgb 8.9 L, Hct 28.9 L, MCV 100.0 H, MCH 30.9, MCHC 30.9 L, RDW 14.5, Plt Count 191, MPV 12.4 H, Neut % (Auto) 93.8 H, Lymph % (Auto) 3.1 L, [place] % (Auto) 2.8, Eos % (Auto) 0.2, Baso % (Auto) 0.1, Neut # (Auto) 20.3 H, Lymph # (Auto) 0.7, [place] # (Auto) 0.6, Eos # (Auto) 0.0, Baso # (Auto) 0.0 12/24/19 08:10: Sodium 129 L, Potassium 4.7, Chloride 98, Carbon Dioxide 22, Anion Gap 13.7, BUN 70 H, Creatinine 3.17 H, Estimated Creat Clear 16, Estimated GFR 14 L*, Est GFR ( Amer) 17 L*, Glucose 185 H, Calcium 7.7 L Medical History: Reports:: Cancer (colon), Congestive Heart Failure (Dx: Nov 2019), Coronary Artery Disease (Dx: Nov 2019), Cerebrovascular Accident, Diabetes Mellitus Type 2, Hyperlipidemia, Hypertension, Myocardial Infarction, Renal Insufficiency Denies:: Home Oxygen, Internal Pacemaker, Seizures Assessment and Plan (1) Acute on chronic renal failure Current visit: Yes Status: Acute Category: Medical Code(s): N17.9 - Acute kidney failure, unspecified; N18.9 - Chronic kidney disease, unspecified (2) Elevated troponin Current visit: Yes Status: Acute Category: Medical Code(s): R79.89 - Other specified abnormal findings of blood chemistry (3) Hypoglycemia Current visit: Yes Status: Acute Category: Medical Code(s): E16.2 - Hypoglycemia, unspecified (4) Hypothermia Current visit: Yes Status: Acute Qualifiers: Encounter type: initial encounter Qualified Code(s): T68.XXXA - Hypothermia, initial encounter Category: Medical Code(s): T68.XXXA - Hypothermia, initial encounter (5) Pleural effusion, left Current visit: Yes Status: Acute Category: Medical Code(s): J90 - Pleural effusion, not elsewhere classified (6) Congestive heart failure Current visit: No Status: Acute Qualifiers: Heart failure type: unspecified Heart failure chronicity: acute Qualified Code(s): I50.9 - Heart failure, unspecified Category: Medical Code(s): I50.9 - Heart failure, unspecified (7) Coronary artery disease Current visit: No Status: Acute Category: Medical Code(s): I25.10 - Atherosclerotic heart disease of [place] coronary artery without angina pectoris (8) History of CVA (cerebrovascular accident) Current visit: No Status: Acute Category: Medical Code(s): Z86.73 - Personal history of transient ischemic attack (TIA), and cerebral infarction without residual deficits (9) Hyperlipidemia Current visit: No Status: Acute Category: Medical Code(s): E78.5 - Hyperlipidemia, unspecified (10) Hypothyroidism Current visit: No Status: Acute Category: Medical Code(s): E03.9 - Hypothyroidism, unspecified (11) HTN (hypertension) Current visit: No Status: Chronic Category: Medical Code(s): I10 - Essential (primary) hypertension (12) Type 2 diabetes mellitus Current visit: No Status: Chronic Category: Medical Code(s): E11.9 - Type 2 diabetes mellitus without complications (13) Elevated brain natriuretic peptide (BNP) level Current visit: Yes Status: Acute Category: Medical Code(s): R79.89 - Other specified abnormal findings of blood chemistry (14) Anemia Current visit: Yes Status: Acute Category: Medical Code(s): D64.9 - Anemia, unspecified (15) History of coronary angioplasty with insertion of stent Current visit: Yes Status: Acute Category: Surgical Code(s): Z95.5 - Presence of coronary angioplasty implant and graft (16) Hyponatremia Current visit: Yes Status: Acute Category: Medical Code(s): E87.1 - Hypo- osmolality and hyponatremia (17) Leukocytosis Current visit: Yes Status: Acute Category: Medical Code(s): D72.829 - Elevated white blood cell count, unspecified (18) Positive blood cultures Current visit: Yes Status: Acute Category: Medical Code(s): R78.81 - Bacteremia (19) Renal failure, acute on chronic Current visit: Yes Status: Acute Category: Medical Code(s): N17.9 - Acute kidney failure, unspecified; N18.9 - Chronic kidney disease, unspecified
[2019-12-24 12:40] LABS: Lymphocytes % 3 % (10-50); Monocytes % 1 % (2-9); Neutrophils % 96 % (42-76); Total Cells Counted 100
--- NOTE | 2019-12-25 08:17 | Progress Note ---
<Charo Avery - Last Filed: 12/25/19 08:14> Internal Medicine - PN: Subj *Date: 12/25/19 *Time: 08:14 Interval history: Patient states she is feeling a little bit better this morning however she has developed some shortness of breath. She denies a cough. She denies any pain and states she slept a little bit better last night and was able to eat some breakfast this morning. Exam Vital signs and Labs for Last 24 Hours: Temp Pulse Resp BP Pulse Ox 97.4 F L 75 20 138/49 L 98 12/25/19 07:49 12/25/19 07:49 12/25/19 07:49 12/25/19 07:49 12/25/19 07:49 Laboratory Results - last 24 hr 12/24/19 08:10: WBC 21.6 H*, RBC 2.89 L, Hgb 8.9 L, Hct 28.9 L, MCV 100.0 H, MCH 30.9, MCHC 30.9 L, RDW 14.5, Plt Count 191, MPV 12.4 H, Neut % (Auto) 93.8 H, Lymph % (Auto) 3.1 L, [place] % (Auto) 2.8, Eos % (Auto) 0.2, Baso % (Auto) 0.1, Neut # (Auto) 20.3 H, Lymph # (Auto) 0.7, [place] # (Auto) 0.6, Eos # (Auto) 0.0, Baso # (Auto) 0.0, Total Counted 100, Neutrophils % (Manual) 96 H, Lymphocytes % (Manual) 3 L, Monocytes % (Manual) 1 L, Platelet Estimate Normal, Poikilocytosis 1+, Acanthocytes (Spur) 1+ 12/24/19 08:10: Sodium 129 L, Potassium 4.7, Chloride 98, Carbon Dioxide 22, Anion Gap 13.7, BUN 70 H, Creatinine 3.17 H, Estimated Creat Clear 16, Estimated GFR 14 L*, Est GFR ( Amer) 17 L*, Glucose 185 H, Calcium 7.7 L 12/24/19 11:28: POC Glucose 172 H 12/24/19 16:59: POC Glucose 205 H 12/24/19 20:06: POC Glucose 228 H 12/25/19 06:10: POC Glucose 204 H I & O for Last 24 hours: Intake & Output 12/22/19 12/23/19 12/24/19 12/25/19 11:59 11:59 11:59 11:59 Intake Total 2315 / 2315 1340 / 1340 300 / 300 883 / 883 Output Total 850 / 850 600 / 600 150 / 150 Balance 1465 / 1465 740 / 740 150 / 150 883 / 883 Weight 180 lb 5 oz 182 lb 4 oz 180 lb 9 oz 180 lb 7 oz Microbiology Reports for the Last 24 Hours: Microbiology 12/21/19 00:15 Blood Blood Culture - Preliminary Staphylococcus epidermidis 12/21/19 00:15 Blood Blood Culture - Preliminary Staphylococcus capitis - Constitutional no acute distress - *Routine Respiratory Exam Present: rales (bibasilar), wheezes (bilaterally) - *Routine Cardiovascular Exam Present: RRR - *Routine Abdominal Exam Present: soft, normoactive bowel sounds. Absent: tenderness - *Routine Extremities Exam Present: edema (trace leg edema bilaterally, there is edema of the bilateral upper extremities). Absent: cyanosis, clubbing - *Routine Skin Exam Present: warm. Absent: rash - *Routine Neurological Exam Present: alert, oriented X3 Assessment and Plan (1) Acute on chronic renal failure Current visit: Yes Status: Acute Category: Medical Code(s): N17.9 - Acute kidney failure, unspecified; N18.9 - Chronic kidney disease, unspecified (2) Elevated troponin Current visit: Yes Status: Acute Category: Medical Code(s): R79.89 - Other specified abnormal findings of blood chemistry (3) Hypoglycemia Current visit: Yes Status: Acute Category: Medical Code(s): E16.2 - Hypoglycemia, unspecified (4) Hypothermia Current visit: Yes Status: Acute Qualifiers: Encounter type: initial encounter Qualified Code(s): T68.XXXA - Hypothermia, initial encounter Category: Medical Code(s): T68.XXXA - Hypothermia, initial encounter (5) Pleural effusion, left Current visit: Yes Status: Acute Category: Medical Code(s): J90 - Pleural effusion, not elsewhere classified (6) Congestive heart failure Current visit: No Status: Acute Qualifiers: Heart failure type: unspecified Heart failure chronicity: acute Qualified Code(s): I50.9 - Heart failure, unspecified Category: Medical Code(s): I50.9 - Heart failure, unspecified (7) Coronary artery disease Current visit: No Status: Acute Category: Medical Code(s): I25.10 - Atherosclerotic heart disease of [place] coronary artery without angina pectoris (8) History of CVA (cerebrovascular accident) Current visit: No Status: Acute Category: Medical Code(s): Z86.73 - Personal history of transient ischemic attack (TIA), and cerebral infarction without residual deficits (9) Hyperlipidemia Current visit: No Status: Acute Category: Medical Code(s): E78.5 - Hyperlipidemia, unspecified (10) Hypothyroidism Current visit: No Status: Acute Category: Medical Code(s): E03.9 - Hypo thyroidism, unspecified (11) HTN (hypertension) Current visit: No Status: Chronic Category: Medical Code(s): I10 - Essential (primary) hypertension (12) Type 2 diabetes mellitus Current visit: No Status: Chronic Category: Medical Code(s): E11.9 - Type 2 diabetes mellitus without complications (13) Elevated brain natriuretic peptide (BNP) level Current visit: Yes Status: Acute Category: Medical Code(s): R79.89 - Other specified abnormal findings of blood chemistry (14) Anemia Current visit: Yes Status: Acute Category: Medical Code(s): D64.9 - Anemia, unspecified (15) History of coronary angioplasty with insertion of stent Current visit: Yes Status: Acute Category: Surgical Code(s): Z95.5 - Presence of coronary angioplasty implant and graft (16) Hyponatremia Current visit: Yes Status: Acute Category: Medical Code(s): E87.1 - Hypo- osmolality and hyponatremia (17) Leukocytosis Current visit: Yes Status: Acute Category: Medical Code(s): D72.829 - Elevated white blood cell count, unspecified (18) Positive blood cultures Problem details: D/T staph Current visit: Yes Status: Acute Category: Medical Code(s): R78.81 - Bacteremia (19) Renal failure, acute on chronic Current visit: Yes Status: Acute Category: Medical Code(s): N17.9 - Acute kidney failure, unspecified; N18.9 - Chronic kidney disease, unspecified - Assessment and plan all Dx Assessment and Plan for all problems:: Blood cultures came back positive for Staphylococcus epidermidis and Staphylococcus capitis and both were sensitive to vancomycin. We will get a repeat labs today. We will give the patient a neb treatment d/t her wheezing and SOA. Chest x-ray shows bibasilar airspace disease with small bilateral effusions. Patient may need some Lasix today. Will discuss with Dr. Winkler. <Rubén Winkler - Last Filed: 12/25/19 09:02> Internal Medicine - PN: Subj *Date: 12/25/19 *Time: 09:01 Exam Vital signs and Labs for Last 24 Hours: Temp Pulse Resp BP Pulse Ox 97.4 F L 70 20 138/49 L 98 12/25/19 07:49 12/25/19 08:28 12/25/19 07:49 12/25/19 07:49 12/25/19 07:49 Laboratory Results - last 24 hr 12/24/19 08:10: WBC 21.6 H*, RBC 2.89 L, Hgb 8.9 L, Hct 28.9 L, MCV 100.0 H, MCH 30.9, MCHC 30.9 L, RDW 14.5, Plt Count 191, MPV 12.4 H, Neut % (Auto) 93.8 H, Lymph % (Auto) 3.1 L, Hayes % (Auto) 2.8, Eos % (Auto) 0.2, Baso % (Auto) 0.1, Neut # (Auto) 20.3 H, Lymph # (Auto) 0.7, [place] # (Auto) 0.6, Eos # (Auto) 0.0, Baso # (Auto) 0.0, Total Counted 100, Neutrophils % (Manual) 96 H, Lymphocytes % (Manual) 3 L, Monocytes % (Manual) 1 L, Platelet Estimate Normal, Poikilocytosis 1+, Acanthocytes (Spur) 1+ 12/24/19 11:28: POC Glucose 172 H 12/24/19 16:59: POC Glucose 205 H 12/24/19 20:06: POC Glucose 228 H 12/25/19 06:10: POC Glucose 204 H I & O for Last 24 hours: Intake & Output 12/22/19 12/23/19 12/24/19 12/25/19 23:59 23:59 23:59 23:59 Intake Total 3035 / 3035 560 / 680 763 / 763 240 / 240 Output Total 1000 / 1250 600 / 600 Balance 2035 / 1785 -40 / 80 763 / 763 240 / 240 Weight 180 lb 12.465 oz 182 lb 4 oz 180 lb 9 oz 180 lb 7 oz Microbiology Reports for the Last 24 Hours: Microbiology 12/21/19 00:15 Blood Blood Culture - Preliminary Staphylococcus epidermidis 12/21/19 00:15 Blood Blood Culture - Preliminary Staphylococcus capitis Assessment and Plan (1) Acute on chronic renal failure Current visit: Yes Status: Acute Category: Medical Code(s): N17.9 - Acute kidney failure, unspecified; N18.9 - Chronic kidney disease, unspecified (2) Elevated troponin Current visit: Yes Status: Acute Category: Medical Code(s): R79.89 - Other specified abnormal findings of blood chemistry (3) Hypoglycemia Current visit: Yes Status: Acute Category: Medical Code(s): E16.2 - Hypoglycemia, unspecified (4) Hypothermia Current visit: Yes Status: Acute Qualifiers: Encounter type: initial encounter Qualified Code(s): T68.XXXA - Hypo thermia, initial encounter Category: Medical Code(s): T68.XXXA - Hypothermia, initial encounter (5) Pleural effusion, left Current visit: Yes Status: Acute Category: Medical Code(s): J90 - Pleural effusion, not elsewhere classified (6) Congestive heart failure Current visit: No Status: Acute Qualifiers: Heart failure type: unspecified Heart failure chronicity: acute Qualified Code(s): I50.9 - Heart failure, unspecified Category: Medical Code(s): I50.9 - Heart failure, unspecified (7) Coronary artery disease Current visit: No Status: Acute Category: Medical Code(s): I25.10 - Atherosclerotic heart disease of [place] coronary artery without angina pectoris (8) History of CVA (cerebrovascular accident) Current visit: No Status: Acute Category: Medical Code(s): Z86.73 - Personal history of transient ischemic attack (TIA), and cerebral infarction without residual deficits (9) Hyperlipidemia Current visit: No Status: Acute Category: Medical Code(s): E78.5 - Hyperlipidemia, unspecified (10) Hypothyroidism Current visit: No Status: Acute Category: Medical Code(s): E03.9 - Hypothyroidism, unspecified (11) HTN (hypertension) Current visit: No Status: Chronic Category: Medical Code(s): I10 - Essential (primary) hypertension (12) Type 2 diabetes mellitus Current visit: No Status: Chronic Category: Medical Code(s): E11.9 - Type 2 diabetes mellitus without complications (13) Elevated brain natriuretic peptide (BNP) level Current visit: Yes Status: Acute Category: Medical Code(s): R79.89 - Other specified abnormal findings of blood chemistry (14) Anemia Current visit: Yes Status: Acute Category: Medical Code(s): D64.9 - Anemia, unspecified (15) History of coronary angioplasty with insertion of stent Current visit: Yes Status: Acute Category: Surgical Code(s): Z95.5 - Presence of coronary angioplasty implant and graft (16) Hyponatremia Current visit: Yes Status: Acute Category: Medical Code(s): E87.1 - Hypo- osmolality and hyponatremia (17) Leukocytosis Current visit: Yes Status: Acute Category: Medical Code(s): D72.829 - Elevated white blood cell count, unspecified (18) Positive blood cultures Problem details: D/T staph Current visit: Yes Status: Acute Category: Medical Code(s): R78.81 - Bacteremia (19) Renal failure, acute on chronic Current visit: Yes Status: Acute Category: Medical Code(s): N17.9 - Acute kidney failure, unspecified; N18.9 - Chronic kidney disease, unspecified - Assessment and plan all Dx Assessment and Plan for all problems:: Saw patient, agree with above note. Will give a dose of Lasix today and plan to continue it for a few weeks. OK for discharge to [facility] today.
[2019-12-25 09:50] LABS: Albumin Level 1.5 gm/dL (3.4-5.0); Albumin/Globulin Ratio 0.5 (1.1-1.8); Anion Gap 12.8 mEq/L (5-15); Bilirubin,Total 0.2 mg/dL (0.2-1.0); Calcium 7.7 mg/dL (8.5-10.1); Globulin 3.2 gm/dl (1.3-3.2); Total Protein,Serum 4.7 gm/dL (6.4-8.2)
--- NOTE | 2019-12-25 10:04 | Progress Note ---
Internal Medicine - PN: Subj *Date: 12/25/19 *Time: 11:49 Exam Vital signs and Labs for Last 24 Hours: Temp Pulse Resp BP Pulse Ox 97.4 F L 70 20 138/49 L 98 12/25/19 07:49 12/25/19 08:28 12/25/19 07:49 12/25/19 07:49 12/25/19 07:49 Laboratory Results - last 24 hr 12/24/19 08:10: Total Counted 100, Neutrophils % (Manual) 96 H, Lymphocytes % (Manual) 3 L, Monocytes % (Manual) 1 L, Platelet Estimate Normal, Poikilocytosis 1+, Acanthocytes (Spur) 1+ 12/24/19 11:28: POC Glucose 172 H 12/24/19 16:59: POC Glucose 205 H 12/24/19 20:06: POC Glucose 228 H 12/25/19 06:10: POC Glucose 204 H 12/25/19 09:20: Sodium 131 L, Potassium 4.8, Chloride 99, Carbon Dioxide 24, Anion Gap 12.8, BUN 71 H, Creatinine 2.85 H, Estimated Creat Clear 18, Estimated GFR 16 L*, Est GFR ( Amer) 19 L*, Glucose 193 H, Calcium 7.7 L, Total Bilirubin 0.2, AST 27, ALT 26, Alkaline Phosphatase 89, Total Protein 4.7 L, Albumin 1.5 L, Globulin 3.2, Albumin/Globulin Ratio 0.5 L I & O for Last 24 hours: Intake & Output 12/22/19 12/23/19 12/24/19 12/25/19 23:59 23:59 23:59 23:59 Intake Total 3035 / 3035 560 / 680 763 / 763 240 / 240 Output Total 1000 / 1250 600 / 600 Balance 2035 / 1785 -40 / 80 763 / 763 240 / 240 Weight 180 lb 12.465 oz 182 lb 4 oz 180 lb 9 oz 180 lb 7 oz Microbiology Reports for the Last 24 Hours: Microbiology 12/21/19 00:15 Blood Blood Culture - Preliminary Staphylococcus epidermidis 12/21/19 00:15 Blood Blood Culture - Preliminary Staphylococcus capitis Assessment and Plan (1) Acute on chronic renal failure Current visit: Yes Status: Acute Category: Medical Code(s): N17.9 - Acute kidney failure, unspecified; N18.9 - Chronic kidney disease, unspecified (2) Elevated troponin Current visit: Yes Status: Acute Category: Medical Code(s): R79.89 - Other specified abnormal findings of blood chemistry (3) Hypoglycemia Current visit: Yes Status: Acute Category: Medical Code(s): E16.2 - Hypoglycemia, unspecified (4) Hypothermia Current visit: Yes Status: Acute Qualifiers: Encounter type: initial encounter Qualified Code(s): T68.XXXA - Hypothermia, initial encounter Category: Medical Code(s): T68.XXXA - Hypothermia, initial encounter (5) Pleural effusion, left Current visit: Yes Status: Acute Category: Medical Code(s): J90 - Pleural effusion, not elsewhere classified (6) Congestive heart failure Current visit: No Status: Acute Qualifiers: Heart failure type: unspecified Heart failure chronicity: acute Qualified Code(s): I50.9 - Heart failure, unspecified Category: Medical Code(s): I50.9 - Heart failure, unspecified (7) Coronary artery disease Current visit: No Status: Acute Category: Medical Code(s): I25.10 - Atherosclerotic heart disease of [place] coronary artery without angina pectoris (8) History of CVA (cerebrovascular accident) Current visit: No Status: Acute Category: Medical Code(s): Z86.73 - Personal history of transient ischemic attack (TIA), and cerebral infarction without residual deficits (9) Hyperlipidemia Current visit: No Status: Acute Category: Medical Code(s): E78.5 - Hyperlipidemia, unspecified (10) Hypothyroidism Current visit: No Status: Acute Category: Medical Code(s): E03.9 - Hypothyroidism, unspecified (11) HTN (hypertension) Current visit: No Status: Chronic Category: Medical Code(s): I10 - Essential (primary) hypertension (12) Type 2 diabetes mellitus Current visit: No Status: Chronic Category: Medical Code(s): E11.9 - Type 2 diabetes mellitus without complications (13) Elevated brain natriuretic peptide (BNP) level Current visit: Yes Status: Acute Category: Medical Code(s): R79.89 - Other specified abnormal findings of blood chemistry (14) Anemia Current visit: Yes Status: Acute Category: Medical Code(s): D64.9 - Anemia, unspecified (15) History of coronary angioplasty with insertion of stent Current visit: Yes Status: Acute Category: Surgical Code(s): Z95.5 - Presence of coronary angioplasty implant and graft (16) Hyponatremia Current visit: Yes Status: Acute Category: Medical Code(s): E87.1 - Hypo- osmolality and hyponatremia (17) Leukocytosis Current visit: Yes Status: Acute Category: Medical Code(s): D72.829 - Elevated white blood cell count, unspecified (18) Positive blood cultures Problem details: D/T staph Current visit: Yes Status: Acute Category: Medical Code(s): R78.81 - Bacteremia (19) Renal failure, acute on chronic Current visit: Yes Status: Acute Category: Medical Code(s): N17.9 - Acute kidney failure, unspecified; N18.9 - Chronic kidney disease, unspecified (20) Bacteremia Current visit: Yes Status: Acute Category: Medical Code(s): R78.81 - Bacteremia (21) Severe sepsis Current visit: Yes Status: Acute Category: Medical Code(s): A41.9 - Sepsis, unspecified organism; R65.20 - Severe sepsis without septic shock
[2019-12-25 10:11] LABS: Basophils % 0.1 % (0.1-2.0); Eosinophils # 0.1 K/mm3 (0.0-0.4); Eosinophils % 0.8 % (0.1-12.0); Hematocrit 26.5 % (37.0-47.0); Hemoglobin 8.1 g/dL (12.2-16.2); Lymphocytes # 0.8 K/mm3 (0.7-4.5); Mean Corpuscular HGB Conc 30.6 g/dL (31.8-35.4); Mean Corpuscular Volume 99.6 fl (81-99); Mean Platelet Volume 11.5 fl (7.4-10.4); Monocytes # 0.6 K/mm3 (0.1-1.0); Monocytes % 3.7 % (1.7-9.3); Neutrophils # 13.6 K/mm3 (1.8-7.8); Neutrophils % 90.4 % (37.0-80.0); Platelet Count 190 K/mm3 (142-424); Red Blood Count 2.67 M/mm3 (4.20-5.40); Red Cell Distribution Width 14.5 % (11.5-17.5)
[2019-12-25 11:54] LABS: Lymphocytes % 6 % (10-50); Monocytes % 1 % (2-9); Neutrophils % 93 % (42-76); Total Cells Counted 100
--- NOTE | 2019-12-25 12:53 | Discharge Summary ---
General - General Admission date:: 12/21/19 Discharge date: 12/25/19 HPI HPI: 84 year old female with a complicated recent medical history. Patient was admitted at [facility] 2 weeks ago due to shortness of breath and was diagnosed with congestive heart failure. As part of her evaluation she had a left heart cath and during the procedure she was found to have a significant LAD stenosis. During treatment of that stenosis she developed a dissection. The procedure was aborted and she transferred directly to [facility] in [place] where she was until yesterday. Records from her visit are not available for reviewed, but she reportedly had another left heart cath with placement of 3 stents. She also developed acute renal failure and was given a diagnosis of post contrast nephropathy. The patient said she had a lot of trouble with low blood sugar while at as well. After getting home from yesterday the patient began to have some shortness of breath. She states that her symptoms got worse so she came to [facility] ER for an evaluation. She told the ER doctor she was unwilling to return to last night. She states she was given several new medications at the time of her discharge but she has not taken them as of yet. Patient reports generalized edema and thinks she gained 20 lbs during her admission at . Hospital Course Hospital Course: The patient was admitted for further evaluation and treatment. She was hypothermic initially, but her temperature improved. She was given a dose of Lasix and nitroglycerin paste and her GODWIN's were monitored. She was started on low intensity sliding scale due to persistent hypoglycemia and Lantus was held. She had a chest x-ray showing left basilar infiltrate and/or atelectasis with bilateral pleural effusions and mild CHF. She was started on lasix and did begin feeling better. She remained short of breath with any exertion. Her renal function was very elevated on admission but did improve. Her sodium was also low, but improved. She began eating well and her bowels were moving. She was voiding without difficulty once her [place] was removed. Her blood cultures came back positive for gram-positive cocci and her white blood cell count elevated. A repeat chest x-ray was ordered and she was started on Rocephin. She was also continued on Lasix for diuresis. Her repeat chest x-ray showed a persistent but improved left lower lobe airspace disease with small bilateral effusions. Her blood cultures came back positive for staph epidermidis and staph capitis, therefore she was started on vancomycin. A PICC line was also placed. She began resting better but continued with shortness of breath. She had some wheezing and was placed on neb treatments. She did diurese well with Lasix and her renal function improved. Her WBC improved. She was stable to be discharged to [place] for continued rehab and antibiotic treatment. Objective Vital signs: Temp Pulse Resp BP Pulse Ox 97.5 F L 75 20 145/56 H 92 L 12/25/19 11:53 12/25/19 11:53 12/25/19 11:53 12/25/19 11:53 12/25/19 11:53 Narrative: - Constitutional no acute distress (appears not to feel well but is conversant) - *Routine HEENT Exam Head: Present: normocephalic Eye: Present: EOMI ENT: Present: mucous membranes moist - *Routine Neck Exam Present: supple. Absent: lymphadenopathy - *Routine Respiratory Exam Present: crackles (bibasilar), diminished air movement (in left base). Absent: wheezes - *Routine Cardiovascular Exam Present: RRR - *Routine Abdominal Exam Present: soft, normoactive bowel sounds. Absent: tenderness - *Routine Extremities Exam Present: edema (1+ arms and legs). Absent: cyanosis, clubbing - *Routine Skin Exam Present: warm. Absent: rash - *Routine Neurological Exam Present: alert, oriented X3 Results Labs on day of discharge: Labs from last 24 hours 12/25/19 12/25/19 12/25/19 09:20 09:20 06:10 WBC 15.0 H D RBC 2.67 L Hgb 8.1 L Hct 26.5 L MCV 99.6 H MCH 30.5 MCHC 30.6 L RDW 14.5 Plt Count 190 MPV 11.5 H Neut % (Auto) 90.4 H Lymph % (Auto) 5.0 L [place] % (Auto) 3.7 Eos % (Auto) 0.8 Baso % (Auto) 0.1 Neut # (Auto) 13.6 H Lymph # (Auto) 0.8 [place] # (Auto) 0.6 Eos # (Auto) 0.1 Baso # (Auto) 0.0 Total Counted 100 Neutrophils % (Manual) 93 H Lymphocytes % (Manual) 6 L Monocytes % (Manual) 1 L Platelet Estimate Normal Poikilocytosis 3+ Acanthocytes (Spur) 3+ Schistocytes 1+ Sodium 131 L Potassium 4.8 Chloride 99 Carbon Dioxide 24 Anion Gap 12.8 BUN 71 H Creatinine 2.85 H Estimated Creat Clear 18 Estimated GFR 16 L* Est GFR ( Amer) 19 L* Glucose 193 H POC Glucose 204 H Calcium 7.7 L Total Bilirubin 0.2 AST 27 ALT 26 Alkaline Phosphatase 89 Total Protein 4.7 L Albumin 1.5 L Globulin 3.2 Albumin/Globulin Ratio 0.5 L 12/24/19 12/24/19 20:06 16:59 WBC RBC Hgb Hct MCV MCH MCHC RDW Plt Count MPV Neut % (Auto) Lymph % (Auto) [place] % (Auto) Eos % (Auto) Baso % (Auto) Neut # (Auto) Lymph # (Auto) [place] # (Auto) Eos # (Auto) Baso # (Auto) Total Counted Neutrophils % (Manual) Lymphocytes % (Manual) Monocytes % (Manual) Platelet Estimate Poikilocytosis Acanthocytes (Spur) Schistocytes Sodium Potassium Chloride Carbon Dioxide Anion Gap BUN Creatinine Estimated Creat Clear Estimated GFR Est GFR ( Amer) Glucose POC Glucose 228 H 205 H Calcium Total Bilirubin AST ALT Alkaline Phosphatase Total Protein Albumin Globulin Albumin/Globulin Ratio Preliminary micro results at discharge 12/23/19 10:15 Blood Culture - Preliminary Blood NO GROWTH AFTER 48 HOURS 12/23/19 10:15 Blood Culture - Preliminary Blood NO GROWTH AFTER 48 HOURS 12/21/19 00:15 Blood Culture - Preliminary Blood Staphylococcus epidermidis 12/21/19 00:15 Blood Culture - Preliminary Blood Staphylococcus capitis DS: Diagnosis - Discharge Diagnosis (1) Acute on chronic renal failure Status: Acute (2) Elevated troponin Status: Acute (3) Hypoglycemia Status: Acute (4) Hypothermia Status: Acute (5) Pleural effusion, left Status: Acute (6) Congestive heart failure Status: Acute (7) Coronary artery disease Status: Acute (8) History of CVA (cerebrovascular accident) Status: Acute (9) Hyperlipidemia Status: Acute (10) Hypothyroidism Status: Acute (11) HTN (hypertension) Status: Chronic (12) Type 2 diabetes mellitus Status: Chronic (13) Elevated brain natriuretic peptide (BNP) level Status: Acute (14) Anemia Status: Acute (15) History of coronary angioplasty with insertion of stent Status: Acute (16) Hyponatremia Status: Acute (17) Leukocytosis Status: Acute (18) Positive blood cultures Status: Acute Problem details: D/T staph (19) Renal failure, acute on chronic Status: Acute (20) Bacteremia Status: Acute (21) Severe sepsis Status: Acute Discharge Plan - Patient Discharge Instructions ACTIVITY: Continue current activity DIET: continue same diet Additional Instructions: Patient needs a CBC and BMP in 1 week. PICC line care, Physical therapy evaluate and treat. Daily weights x 2 weeks. Patient Instructions: Anemia, DI for Kidney Failure, Peripherally Inserted Central Catheter, Peripherally Inserted Central Catheter Infections, DI for Pleural Effusion - Follow up Plan Follow up with: Rubén Winkler MD [Primary Care Provider] - Disposition: [facility] Home Medications: Home Medications Medication Instructions Recorded Confirmed Type Levothyroxine Sodium 75 mcg PO DAILY 03/26/18 12/22/19 History [Levothyroxine 75mcg (0.075mg) Tab] Clopidogrel Bisulfate [Plavix 75mg 75 mg PO DAILY 12/07/19 12/21/19 History Tab] Insulin NPH Hum/Reg Insulin Hm 11 unit SQ BID 12/07/19 12/21/19 History [Humulin 70/30 Kwikpen] Aspirin [Aspir 81] 81 mg PO DAILY 12/21/19 12/21/19 History Hydralazine HCl [Hydralazine HCl 25 mg PO TID 12/21/19 12/21/19 History 25mg Tablet] carvediloL [Carvedilol 6.25mg Tab] 6.25 mg PO BID 12/21/19 12/21/19 History Atorvastatin Calcium [Atorvastatin 80 mg PO HS 12/25/19 12/25/19 History 80mg Tab] Cholecalciferol (Vitamin D3) 1,250 mcg PO WEEKLY 30 Days cap 12/25/19 Rx [Vitamin D3] Furosemide [Lasix 40mg tablet] 40 mg PO DAILY #30 tab 12/25/19 Rx Vancomycin HCl [Vancomycin 1000mg 1,250 mg IV Q48H 14 Days vial 12/25/19 Rx Vial] Prescriptions/Medication Reconciliation: New Vancomycin HCl [Vancomycin 1000mg Vial] 1,250 mg IV Q48H 14 Days vial Cholecalciferol (Vitamin D3) [Vitamin D3] 1,250 mcg PO WEEKLY 30 Days cap Furosemide [Lasix 40mg tablet] 40 mg PO DAILY #30 tab Continued Levothyroxine Sodium [Levothyroxine 75mcg (0.075mg) Tab] 75 mcg PO DAILY Clopidogrel Bisulfate [Plavix 75mg Tab] 75 mg PO DAILY carvediloL [Carvedilol 6.25mg Tab] 6.25 mg PO BID Insulin NPH Hum/Reg Insulin Hm [Humulin 70/30 Kwikpen] 11 unit SQ BID Aspirin [Aspir 81] 81 mg PO DAILY Hydralazine HCl [Hydralazine HCl 25mg Tablet] 25 mg PO TID Atorvastatin Calcium [Atorvastatin 80mg Tab] 80 mg PO HS - Problem Reconciliation Problems Reviewed?: Yes
== END 2019-12-25 14:00 | disposition home or self-care (01) | DRG 638 ==
LOC: 2ND 23:48 → ER 23:48 → 2ND 12-21 03:07
PROVIDERS: ADMIT Family Medicine; ATTEND Family Medicine
CPT/HCPCS: 36415; 36569; 71010; 71020; 71045; 71046; 80048; 80053; 81001; 82962; 83605; 83735; 83880; 84100; 84443; 84484; 85007; 85025; 87040; 87077; 87186; 93005; 94640; 94761; 96365; 96375; 97110; 97116; 97161; 97530; 99285; C1751; G0378; J3370

== ENCOUNTER 2020-01-12 18:45 | Observation (INO) ==
--- NOTE | 2020-01-12 18:18 | Progress Note ---
Internal Medicine - PN: Subj *Date: 01/12/20 *Time: 19:13 Interval history: Patient admitted today due to low H/H, worsening peripheral edema and persistent shortness of breath and hypoxia. She has been treated with Lasix and Metolazone daily at the assisted and her Hg is down to 7.1 today and Creatinine is up to 2.5, BNP is elevated. Patient needed oxygen several times in the past 24 hours due to hypoxia. Exam - Constitutional no acute distress - *Routine HEENT Exam Head: Present: normocephalic Eye: Present: EOMI ENT: Present: mucous membranes moist - *Routine Neck Exam Present: supple. Absent: lymphadenopathy - *Routine Cardiovascular Exam Present: RRR - *Routine Abdominal Exam Absent: tenderness - *Routine Extremities Exam Present: edema (3+ in both legs and arms). Absent: cyanosis, clubbing - *Routine Skin Exam Present: warm. Absent: rash - *Routine Neurological Exam Present: alert, oriented X3 Assessment and Plan (1) Acute on chronic renal failure Current visit: No Status: Acute Category: Medical Code(s): N17.9 - Acute kidney failure, unspecified; N18.9 - Chronic kidney disease, unspecified (2) Anemia Current visit: No Status: Acute Category: Medical Code(s): D64.9 - Anemia, unspecified (3) CKD (chronic kidney disease) stage 3, GFR 30-59 ml/min Current visit: No Status: Acute Category: Medical Code(s): N18.3 - Chronic kidney disease, stage 3 (moderate) (4) Cardiomyopathy Current visit: No Status: Acute Category: Medical Code(s): I42.9 - Cardiomyopathy, unspecified (5) Congestive heart failure Current visit: No Status: Acute Qualifiers: Heart failure type: unspecified Heart failure chronicity: acute Qualified Code(s): I50.9 - Heart failure, unspecified Category: Medical Code(s): I50.9 - Heart failure, unspecified (6) Coronary artery disease Current visit: No Status: Acute Category: Medical Code(s): I25.10 - Atherosclerotic heart disease of [place] coronary artery without angina pectoris (7) Elevated brain natriuretic peptide (BNP) level Current visit: No Status: Acute Category: Medical Code(s): R79.89 - Other specified abnormal findings of blood chemistry (8) History of CVA (cerebrovascular accident) Current visit: No Status: Acute Category: Medical Code(s): Z86.73 - Personal history of transient ischemic attack (TIA), and cerebral infarction without residual deficits (9) History of coronary angioplasty with insertion of stent Current visit: No Status: Acute Category: Surgical Code(s): Z95.5 - Presence of coronary angioplasty implant and graft (10) HTN (hypertension) Current visit: No Status: Chronic Category: Medical Code(s): I10 - Essential (primary) hypertension (11) Heart murmur Current visit: No Status: Chronic Category: Medical Code(s): R01.1 - Cardiac murmur, unspecified (12) Renal insufficiency Current visit: No Status: Chronic Category: Medical Code(s): N28.9 - Disorder of kidney and ureter, unspecified (13) Type 2 diabetes mellitus Current visit: No Status: Chronic Category: Medical Code(s): E11.9 - Type 2 diabetes mellitus without complications - Assessment and plan all Dx Assessment and Plan for all problems:: Patient admitted for transfusion of PRBC's and IV diuretics with close monitoring of I/O's, see orders.
[2020-01-13 07:11] LABS: Basophils # 0.1 K/mm3 (0-0.2); Eosinophils # 0.2 K/mm3 (0.0-0.4); Lymphocytes # 1.1 K/mm3 (0.7-4.5); White Blood Count 7.5 K/mm3 (4.8-10.8)
[2020-01-13 07:16] LABS: Basophils % 0.7 % (0.1-2.0); Eosinophils % 3.2 % (0.1-12.0); Hematocrit 30.7 % (37.0-47.0); Lymphocytes % 14.6 % (10-50); Mean Corpuscular HGB Conc 31.7 g/dL (31.8-35.4); Mean Corpuscular Volume 95.2 fl (81-99); Monocytes # 0.4 K/mm3 (0.1-1.0); Monocytes % 5.5 % (1.7-9.3); Neutrophils # 5.7 K/mm3 (1.8-7.8); Platelet Count 149 K/mm3 (142-424); Red Blood Count 3.23 M/mm3 (4.20-5.40); Red Cell Distribution Width 17.6 % (11.5-17.5)
[2020-01-13 07:18] LABS: Hemoglobin 9.8 g/dL (12.2-16.2)
--- NOTE | 2020-01-13 07:32 | Pharmacy Consult Notes ---
[facility] Pharm[facility] VTE Monitoring - Patient Demographics Admission date: 01/12/20 Report Date: 01/13/20 Time: 07:30 Allergies/Adverse Reactions: Patient Allergies rosuvastatin [From [facility]] Allergy (Mild, Verified 05/08/19 13:48) Height: 1.7 m Weight: 84.4 kg - VTE Risk Labs: VTE Related Lab Results Hgb 9.8 g/dL (12.2-16.2) L D 01/13/20 06:50 Hct 30.7 % (37.0-47.0) L 01/13/20 06:50 Plt Count 149 K/mm3 (142-424) 01/13/20 06:50 VTE Score: 7 VTE Risk Level: Moderate Risk - Prophylaxis VTE Prophylaxis Ordered?: Yes Types of VTE Prophylaxis: TEDS Knee High Location of Applied Device: Bilateral Lower Extremeties
[2020-01-13 07:48] LABS: Anion Gap 7.6 mEq/L (5-15); Calcium 7.9 mg/dL (8.5-10.1)
--- NOTE | 2020-01-13 09:02 | History & Physical Report ---
*Admission Date: 01/12/20 <Edna Virgen 01/13/20 09:15> *Chief complaint: Anemia; shortness of breath <Edna Virgen 01/13/20 09:15> *History of present illness: Ms. andres is an 84-year-old female with a history of type 2 diabetes mellitus, hypertension, hyperlipidemia, hypothyroidism, colon cancer, acute ischemic stroke, in 2017, chronic kidney disease stage III, osteoporosis, systolic congestive heart failure, coronary artery disease, coronary artery dissection, who is a resident at [facility] for ongoing rehab. Recently she has become progressively more short of breath with bilateral leg edema. With repeat labs at [place] she was noted to be anemic and was directly admitted to [facility] for diuresis and administration of packed red blood cells under acute care observation. Patient slept well throughout the night. She received packed red blood cells. She feels better this a.m. and has actually eaten some breakfast. She has diuresed. She denies chest pain and shortness of breath this morning. Daughter is with her this morning. Electrolytes are normal with a BUN of 52 and a creatinine of 2.57 and GFR of 18. CBC with a hemoglobin of 9.8 hematocrit 30.7. <Edna Virgen 01/13/20 09:15> [facility] History Medical History: Reports:: Cancer (colon), Congestive Heart Failure (Dx: Nov 2019), Coronary Artery Disease (Dx: Nov 2019), Cerebrovascular Accident, Diabetes Mellitus Type 2, Heart Murmur, Hyperlipidemia, Hypertension, Myocardial Infarction, Renal Insufficiency Denies:: Home Oxygen, Internal Pacemaker, Seizures <VirgenEdna 01/13/20 09:15> *Have you ever received a pneumonia vaccine?: Yes <VirgenEdna 01/13/20 09:15> *Have you received a flu vaccine this season?: No <Virgen,Edna 01/13/20 09:15> Other Medical History: Reports: Anemia, Cataracts, Hypothyroidism, Osteoporosis <VirgenEdna 01/13/20 09:15> Laterality Cases: Right: Total Hip Replacement, Other <VirgenEdna 01/13/20 09:15> Other Surgeries: Yes: Angioplasty (Nov 2019), Cardiac Catheterization (multiple , Nov 2019), Colonoscopy, Coronary Stent. No: Pacemaker <Marjan Virgenhy 01/13/20 09:15> Amputation: No <ParamEdna 01/13/20 09:15> - *Social History Smoking Status: Former smoker <VirgenEdna 01/13/20 09:15> Tobacco Type: cigarettes <VirgenEdna 01/13/20 09:15> Alcohol Intake: never <VirgenEdna 01/13/20 09:15> Substance Use Type: denies use <VirgenEdna 01/13/20 09:15> *Occupational Status:: retired <VirgenEdna 01/13/20 09:15> Housing: retirement <VirgenEdna 01/13/20 09:15> Household Members: family <ParamEdna 01/13/20 09:15> *Travel in the last 8 weeks: None <ParamEdna 01/13/20 09:15> Family Hx:: Anemia, Cancer, Coronary Artery Disease, Diabetes, Hyperlipidemia, Hypertension, Kidney Disease, Stroke, Thyroid Disorder, Tuberculosis <VirgenEdna 01/13/20 09:15> Review of Systems - Constitutional Reports weakness, Denies headache(s) <VirgenEdna 01/13/20 09:15> - Eyes Denies change in vision <VirgenEdna 01/13/20 09:15> - ENT Denies dizziness, Denies ear pain, Denies headache(s), Denies sore throat <Virgen,Edna 01/13/20 09:15> - *Cardiovascular Reports shortness of breath, Reports leg swelling, Denies chest pain <VirgenEdna 01/13/20 09:15> - *Respiratory Reports shortness of breath, Denies chest congestion, Denies cough, Denies coughing up blood <VirgenEdna 01/13/20 09:15> - *Gastrointestinal Reports constipation, Reports nausea, Reports vomiting, Denies abdominal pain, Denies heartburn, Denies heartburn, Denies vomiting blood, Denies bright, red blood in stools <ParamEdna 01/13/20 09:15> - *Genitourinary Denies urinary incontinence <VirgenEdna to 01/13/20 09:15> - *Musculoskeletal Denies joint pain <Edna Virgen - 01/13/20 09:15> - *Neurologic Reports weakness, Denies dizziness, Denies headache(s), Denies dizziness <Edna Virgen - 01/13/20 09:15> Meds Home Medications Medication Instructions Recorded Confirmed Type Levothyroxine Sodium 75 mcg PO DAILY 03/26/18 01/13/20 History [Levothyroxine 75mcg (0.075mg) Tab] Insulin NPH Hum/Reg Insulin Hm 15 unit SQ BID 12/07/19 01/12/20 History [Humulin 70/30 Kwikpen] Aspirin [Aspir 81] 81 mg PO DAILY 12/21/19 01/12/20 History Hydralazine HCl [Hydralazine HCl 25 mg PO TID 12/21/19 01/12/20 History 25mg Tablet] carvediloL [Carvedilol 6.25mg Tab] 6.25 mg PO BID 12/21/19 01/12/20 History Atorvastatin Calcium [Atorvastatin 80 mg PO HS 12/25/19 01/12/20 History 80mg Tab] Cholecalciferol (Vitamin D3) 50,000 units PO WEEKLY 01/12/20 01/12/20 History [Vitamin D3] Furosemide [Lasix 40mg tablet] 80 mg PO DAILY 01/12/20 01/12/20 History Insulin Lispro [Humalog Kwikpen 0 unit SQ ACHS 01/12/20 01/12/20 History U-100] Ipratropium/Albuterol Sulfate 3 ml IH Q6 PRN 01/12/20 01/13/20 History [Iprat-Albut 0.5-3(2.5) mg/3 ml] Vancomycin HCl [Vancomycin 1000mg 1,250 mg IV Q48H 01/12/20 01/12/20 History Vial] Clopidogrel Bisulfate [Plavix 75mg 75 mg PO DAILY 01/13/20 01/13/20 History Tab] Menthol/Zinc Oxide [Risamine 113 gm TP BID 01/13/20 01/13/20 History Ointment] Ticagrelor [Brilinta 90mg Tablet] 90 mg PO BID 01/13/20 01/13/20 History hydrOXYzine pamoate [Vistaril 25mg 25 mg PO HS 01/13/20 01/13/20 History capsule] metOLazone [Metolazone 5mg Tab] 5 mg PO DAILY 01/13/20 01/13/20 History <Rubén Winkler - 01/13/20 09:22> Allergies Allergy/AdvReac Type Severity Reaction Status Date / Time rosuvastatin [From CRESTOR] Allergy Mild Verified 05/08/19 13:48 <Rubén Winkler - 01/13/20 09:22> Exam Vital signs and Labs for Last 24 Hours: Temp Pulse Resp BP Pulse Ox 97.4 F L 68 18 155/63 H 93 L 01/13/20 08:00 01/13/20 08:00 01/13/20 08:00 01/13/20 08:00 01/13/20 08:00 Laboratory Results - last 24 hr 01/12/20 19:04: Blood Type O Positive, Antibody Screen Negative, Crossmatch (AHG) See Detail 01/12/20 20:54: POC Glucose 257 H 01/13/20 06:50: WBC 7.5, RBC 3.23 L D, Hgb 9.8 L D, Hct 30.7 L, MCV 95.2, MCH 30.2, MCHC 31.7 L, RDW 17.6 H, Plt Count 149, MPV 11.0 H, Neut % (Auto) 76.0, Lymph % (Auto) 14.6, [place] % (Auto) 5.5, Eos % (Auto) 3.2, Baso % (Auto) 0.7, Neut # (Auto) 5.7, Lymph # (Auto) 1.1, [place] # (Auto) 0.4, Eos # (Auto) 0.2, Baso # (Auto) 0.1 01/13/20 06:50: Sodium 138, Potassium 3.6, Chloride 104, Carbon Dioxide 30, Anion Gap 7.6, BUN 52 H, Creatinine 2.57 H, Estimated Creat Clear 21, Estimated GFR 18 L*, Est GFR ( Amer) 21 L, Glucose 186 H D, Calcium 7.9 L <Rubén Winkler - 01/13/20 09:22> Temp Pulse Resp BP Pulse Ox 97.4 F L 68 18 155/63 H 93 L 01/13/20 08:00 01/13/20 08:00 01/13/20 08:00 01/13/20 08:00 01/13/20 08:00 Laboratory Results - last 24 hr 01/12/20 19:04: Blood Type O Positive, Antibody Screen Negative, Crossmatch (AHG) See Detail 01/12/20 20:54: POC Glucose 257 H 01/13/20 06:50: WBC 7.5, RBC 3.23 L D, Hgb 9.8 L D, Hct 30.7 L, MCV 95.2, MCH 30.2, MCHC 31.7 L, RDW 17.6 H, Plt Count 149, MPV 11.0 H, Neut % (Auto) 76.0, Lymph % (Auto) 14.6, [place] % (Auto) 5.5, Eos % (Auto) 3.2, Baso % (Auto) 0.7, Neut # (Auto) 5.7, Lymph # (Auto) 1.1, [place] # (Auto) 0.4, Eos # (Auto) 0.2, Baso # (Auto) 0.1 01/13/20 06:50: Sodium 138, Potassium 3.6, Chloride 104, Carbon Dioxide 30, Anion Gap 7.6, BUN 52 H, Creatinine 2.57 H, Estimated Creat Clear 21, Estimated GFR 18 L*, Est GFR ( Amer) 21 L, Glucose 186 H D, Calcium 7.9 L <Edna Virgen - 01/13/20 09:15> I & O for Last 24 hours: Intake & Output 01/10/20 01/11/20 01/12/20 01/13/20 23:59 23:59 23:59 23:59 Intake Total 0 / 0 0 / 0 Output Total 250 / 250 Balance 0 / 0 -250 / -250 Weight 186 lb 3 oz 186 lb 1.122 oz <Rubén Winkler - 01/13/20 09:22> Intake & Output 01/10/20 01/11/20 01/12/20 01/13/20 11:59 11:59 11:59 11:59 Intake Total 0 / 0 Output Total 250 / 250 Balance -250 / -250 Weight 186 lb 1.122 oz <Edna Virgen - 01/13/20 09:15> - Constitutional no acute distress <Edna Virgen 01/13/20 09:15> Comments: Sitting on the side of the bed eating her breakfast. And then assisted to the bathroom without difficulty with a walker. <Edna Virgen 01/13/20 09:15> - *Routine HEENT Exam Head: Present: normocephalic, atraumatic <Edna Virgen 01/13/20 09:15> Eye: Present: PERRL. Absent: conjunctival icterus, scleral injection <Edna Virgen 01/13/20 09:15> ENT: Present: mucous membranes moist, oropharynx clear <Edna Virgen 01/13/20 09:15> - *Routine Neck Exam Present: supple, carotid bruit (Versus radiated murmur). Absent: lymphadenopathy, thyromegaly <Edna Virgen 01/13/20 09:15> - *Routine Respiratory Exam Comments: Bilateral crackles to midlung field <Edna Virgen 01/13/20 09:15> - *Routine Cardiovascular Exam Present: RRR <Edna Virgen 01/13/20 09:15> - *Routine Abdominal Exam Present: soft, normoactive bowel sounds. Absent: tenderness, distended <Edna Virgen 01/13/20 09:15> - *Routine Extremities Exam Comments: Bilateral leg and feet edema. Legs are tight. <Edna Virgen 01/13/20 09:15> - *Routine Skin Exam Comments: Right inner buttock broken skin area about 1 mm in size. Appears dry and without erythema. <Edna Virgen 01/13/20 09:15> - *Routine Neurological Exam Present: alert, oriented X3 <Edna Virgen 01/13/20 09:15> Assessment and Plan (1) Acute on chronic renal failure Current visit: No Status: Acute Category: Medical Code(s): N17.9 - Acute kidney failure, unspecified; N18.9 - Chronic kidney disease, unspecified (2) Anemia Current visit: No Status: Acute Category: Medical Code(s): D64.9 - Anemia, unspecified (3) CKD (chronic kidney disease) stage 3, GFR 30-59 ml/min Current visit: No Status: Acute Category: Medical Code(s): N18.3 - Chronic kidney disease, stage 3 (moderate) (4) Cardiomyopathy Current visit: No Status: Acute Category: Medical Code(s): I42.9 - Cardiomyopathy, unspecified (5) Congestive heart failure Current visit: No Status: Acute Qualifiers: Heart failure type: unspecified Heart failure chronicity: acute Qualified Code(s): I50.9 - Heart failure, unspecified Category: Medical Code(s): I50.9 - Heart failure, unspecified (6) Coronary artery disease Current visit: No Status: Acute Category: Medical Code(s): I25.10 - Atherosclerotic heart disease of [place] coronary artery without angina pectoris (7) Elevated brain natriuretic peptide (BNP) level Current visit: No Status: Acute Category: Medical Code(s): R79.89 - Other specified abnormal findings of blood chemistry (8) History of CVA (cerebrovascular accident) Current visit: No Status: Acute Category: Medical Code(s): Z86.73 - Personal history of transient ischemic attack (TIA), and cerebral infarction without residual deficits (9) History of coronary angioplasty with insertion of stent Current visit: No Status: Acute Category: Surgical Code(s): Z95.5 - Presence of coronary angioplasty implant and graft (10) HTN (hypertension) Current visit: No Status: Chronic Category: Medical Code(s): I10 - Essential (primary) hypertension (11) Heart murmur Current visit: No Status: Chronic Category: Medical Code(s): R01.1 - Cardiac murmur, unspecified (12) Renal insufficiency Current visit: No Status: Chronic Category: Medical Code(s): N28.9 - Disorder of kidney and ureter, unspecified (13) Type 2 diabetes mellitus Current visit: No Status: Chronic Category: Medical Code(s): E11.9 - Type 2 diabetes mellitus without complications (14) History of recent pneumonia Current visit: Yes Status: Acute Category: Medical Code(s): Z87.01 - Personal history of pneumonia (recurrent) <Rubén Winkler - 01/13/20 09:22> (1) Acute on chronic renal failure Current visit: No Status: Acute Category: Medical Code(s): N17.9 - Acute kidney failure, unspecified; N18.9 - Chronic kidney disease, unspecified (2) Anemia Current visit: No Status: Acute Category: Medical Code(s): D64.9 - Anemia, unspecified (3) CKD (chronic kidney disease) stage 3, GFR 30-59 ml/min Current visit: No Status: Acute Category: Medical Code(s): N18.3 - Chronic kidney disease, stage 3 (moderate) (4) Cardiomyopathy Current visit: No Status: Acute Category: Medical Code(s): I42.9 - Cardiomyopathy, unspecified (5) Congestive heart failure Current visit: No Status: Acute Qualifiers: Heart failure type: unspecified Heart failure chronicity: acute Qualified Code(s): I50.9 - Heart failure, unspecified Category: Medical Code(s): I50.9 - Heart failure, unspecified (6) Coronary artery disease Current visit: No Status: Acute Category: Medical Code(s): I25.10 - Atherosclerotic heart disease of [place] coronary artery without angina pectoris (7) Elevated brain natriuretic peptide (BNP) level Current visit: No Status: Acute Category: Medical Code(s): R79.89 - Other specified abnormal findings of blood chemistry (8) History of CVA (cerebrovascular accident) Current visit: No Status: Acute Category: Medical Code(s): Z86.73 - Personal history of transient ischemic attack (TIA), and cerebral infarction without residual deficits (9) History of coronary angioplasty with insertion of stent Current visit: No Status: Acute Category: Surgical Code(s): Z95.5 - Presence of coronary angioplasty implant and graft (10) HTN (hypertension) Current visit: No Status: Chronic Category: Medical Code(s): I10 - Essential (primary) hypertension (11) Heart murmur Current visit: No Status: Chronic Category: Medical Code(s): R01.1 - Cardiac murmur, unspecified (12) Renal insufficiency Current visit: No Status: Chronic Category: Medical Code(s): N28.9 - Disorder of kidney and ureter, unspecified (13) Type 2 diabetes mellitus Current visit: No Status: Chronic Category: Medical Code(s): E11.9 - Type 2 diabetes mellitus without complications <Edna Virgen - 01/13/20 08:59> - Assessment and plan all Dx Assessment and Plan for all problems:: Saw patient, agree with above note. <Rubén Winkler - 01/13/20 09:22> At Patient and daughter's request diet changed to regular. Ms. Bey knows not to eat sweets and counts her carbs. She will need skin care to her right buttock wound. Continue to monitor through the day as she diuresis. Will monitor H&H as well. <Edna Virgen - 01/13/20 09:15>
[2020-01-14 07:11] LABS: Basophils # 0.1 K/mm3 (0-0.2); Basophils % 0.9 % (0.1-2.0); Eosinophils # 0.2 K/mm3 (0.0-0.4); Eosinophils % 2.6 % (0.1-12.0); Hematocrit 34.3 % (37.0-47.0); Hemoglobin 10.6 g/dL (12.2-16.2); Lymphocytes # 1.1 K/mm3 (0.7-4.5); Lymphocytes % 15.8 % (10-50); Mean Corpuscular HGB Conc 30.9 g/dL (31.8-35.4); Mean Corpuscular Volume 98.4 fl (81-99); Mean Platelet Volume 11.1 fl (7.4-10.4); Monocytes # 0.5 K/mm3 (0.1-1.0); Monocytes % 7.2 % (1.7-9.3); Neutrophils # 5.2 K/mm3 (1.8-7.8); Neutrophils % 73.5 % (37.0-80.0); Platelet Count 172 K/mm3 (142-424); Red Blood Count 3.49 M/mm3 (4.20-5.40); Red Cell Distribution Width 17.4 % (11.5-17.5); White Blood Count 7.1 K/mm3 (4.8-10.8)
[2020-01-14 07:18] LABS: Anion Gap 6.9 mEq/L (5-15); Calcium 8.1 mg/dl (8.4-10.2)
--- NOTE | 2020-01-14 08:01 | Progress Note ---
<Edna Virgen - Last Filed: 01/14/20 07:58> Internal Medicine - PN: Subj *Date: 01/14/20 *Time: 07:58 Interval history: Patient did well until about 3 AM this morning when she became short of breath. Oxygen was restarted. O2 sats remained in the 90s on room air. And 99% with nasal O2. She feels better with oxygen on. Blood pressure was elevated at 187/80. THis a.m. she feels better. She states she ambulated to the bathroom yesterday. She did well with this. CBC this morning with a white blood cell count of 7100 with a globin of 10.6 hematocrit of 34.3 BUN is 60 and creatinine is 2.3 with a GFR of 20. Patient denies chest pain. She states she is eating better. Exam Vital signs and Labs for Last 24 Hours: Temp Pulse Resp BP Pulse Ox 98.2 F 78 18 187/80 H 99 01/14/20 04:00 01/14/20 04:00 01/14/20 04:00 01/14/20 04:00 01/14/20 04:00 Laboratory Results - last 24 hr 01/13/20 05:18: POC Glucose 242 H 01/13/20 11:43: POC Glucose 285 H 01/13/20 16:31: POC Glucose 160 H 01/13/20 21:29: POC Glucose 276 H 01/14/20 06:01: POC Glucose 251 H 01/14/20 06:57: WBC 7.1, RBC 3.49 L, Hgb 10.6 L, Hct 34.3 L, MCV 98.4, MCH 30.5, MCHC 30.9 L, RDW 17.4, Plt Count 172, MPV 11.1 H, Neut % (Auto) 73.5, Lymph % (Auto) 15.8, [place] % (Auto) 7.2, Eos % (Auto) 2.6, Baso % (Auto) 0.9, Neut # (Auto) 5.2, Lymph # (Auto) 1.1, [place] # (Auto) 0.5, Eos # (Auto) 0.2, Baso # (Auto) 0.1 01/14/20 06:57: Sodium 137, Potassium 3.9, Chloride 100, Carbon Dioxide 34 H, Anion Gap 6.9, BUN 60 H, Creatinine 2.30 H, Estimated Creat Clear 24, Estimated GFR 20 L, Est GFR ( Amer) 24 L, Glucose 211 H, Calcium 8.1 L I & O for Last 24 hours: Intake & Output 01/11/20 01/12/20 01/13/20 01/14/20 11:59 11:59 11:59 11:59 Intake Total 0 / 0 610 / 610 Output Total 251 / 251 1300 / 1300 Balance -251 / -251 -690 / -690 Weight 186 lb 1.122 oz 190 lb 3 oz - Constitutional no acute distress Comments: Sitting up in chair at bedside eating her breakfast. Dyspneic with talking - *Routine Respiratory Exam Comments: Bilateral fine crackles throughout. - *Routine Cardiovascular Exam Present: RRR - *Routine Abdominal Exam Present: soft, normoactive bowel sounds. Absent: tenderness - *Routine Extremities Exam Comments: Much less edema in bilateral arms. Still has pitting edema in legs but they are softer today. Less abdominal girth. - *Routine Neurological Exam Present: alert, oriented X3 Assessment and Plan (1) Acute on chronic renal failure Current visit: No Status: Acute Category: Medical Code(s): N17.9 - Acute kidney failure, unspecified; N18.9 - Chronic kidney disease, unspecified (2) Anemia Current visit: No Status: Acute Category: Medical Code(s): D64.9 - Anemia, unspecified (3) CKD (chronic kidney disease) stage 3, GFR 30-59 ml/min Current visit: No Status: Acute Category: Medical Code(s): N18.3 - Chronic kidney disease, stage 3 (moderate) (4) Cardiomyopathy Current visit: No Status: Acute Category: Medical Code(s): I42.9 - Cardiomyopathy, unspecified (5) Congestive heart failure Current visit: No Status: Acute Qualifiers: Heart failure type: unspecified Heart failure chronicity: acute Qualified Code(s): I50.9 - Heart failure, unspecified Category: Medical Code(s): I50.9 - Heart failure, unspecified (6) Coronary artery disease Current visit: No Status: Acute Category: Medical Code(s): I25.10 - Atherosclerotic heart disease of [place] coronary artery without angina pectoris (7) Elevated brain natriuretic peptide (BNP) level Current visit: No Status: Acute Category: Medical Code(s): R79.89 - Other specified abnormal findings of blood chemistry (8) History of CVA (cerebrovascular accident) Current visit: No Status: Acute Category: Medical Code(s): Z86.73 - Per roberto history of transient ischemic attack (TIA), and cerebral infarction without residual deficits (9) History of coronary angioplasty with insertion of stent Current visit: No Status: Acute Category: Surgical Code(s): Z95.5 - Presence of coronary angioplasty implant and graft (10) HTN (hypertension) Current visit: No Status: Chronic Category: Medical Code(s): I10 - Essential (primary) hypertension (11) Heart murmur Current visit: No Status: Chronic Category: Medical Code(s): R01.1 - Cardiac murmur, unspecified (12) Renal insufficiency Current visit: No Status: Chronic Category: Medical Code(s): N28.9 - Disorder of kidney and ureter, unspecified (13) Type 2 diabetes mellitus Current visit: No Status: Chronic Category: Medical Code(s): E11.9 - Type 2 diabetes mellitus without complications (14) History of recent pneumonia Current visit: Yes Status: Acute Category: Medical Code(s): Z87.01 - Personal history of pneumonia (recurrent) - Assessment and plan all Dx Assessment and Plan for all problems:: We will repeat chest x-ray this morning. May need additional Lasix. <Rubén Winkler - Last Filed: 01/14/20 08:48> Internal Medicine - PN: Subj *Date: 01/14/20 *Time: 08:46 Exam Vital signs and Labs for Last 24 Hours: Temp Pulse Resp BP Pulse Ox 97.9 F 76 18 186/78 H 98 01/14/20 08:00 01/14/20 08:00 01/14/20 08:00 01/14/20 08:00 01/14/20 08:00 Laboratory Results - last 24 hr 01/13/20 05:18: POC Glucose 242 H 01/13/20 11:43: POC Glucose 285 H 01/13/20 16:31: POC Glucose 160 H 01/13/20 21:29: POC Glucose 276 H 01/14/20 06:01: POC Glucose 251 H 01/14/20 06:57: WBC 7.1, RBC 3.49 L, Hgb 10.6 L, Hct 34.3 L, MCV 98.4, MCH 30.5, MCHC 30.9 L, RDW 17.4, Plt Count 172, MPV 11.1 H, Neut % (Auto) 73.5, Lymph % (Auto) 15.8, [place] % (Auto) 7.2, Eos % (Auto) 2.6, Baso % (Auto) 0.9, Neut # (Auto) 5.2, Lymph # (Auto) 1.1, [place] # (Auto) 0.5, Eos # (Auto) 0.2, Baso # (Auto) 0.1 01/14/20 06:57: Sodium 137, Potassium 3.9, Chloride 100, Carbon Dioxide 34 H, Anion Gap 6.9, BUN 60 H, Creatinine 2.30 H, Estimated Creat Clear 24, Estimated GFR 20 L, Est GFR ( Amer) 24 L, Glucose 211 H, Calcium 8.1 L I & O for Last 24 hours: Intake & Output 01/11/20 01/12/20 01/13/20 01/14/20 23:59 23:59 23:59 23:59 Intake Total 0 / 0 480 / 480 370 / 370 Output Total 551 / 951 1300 / 1300 Balance 0 / 0 -71 / -471 -930 / -930 Weight 186 lb 3 oz 186 lb 1.122 oz 190 lb 3 oz Assessment and Plan (1) Acute on chronic renal failure Current visit: No Status: Acute Category: Medical Code(s): N17.9 - Acute k idney failure, unspecified; N18.9 - Chronic kidney disease, unspecified (2) Anemia Current visit: No Status: Acute Category: Medical Code(s): D64.9 - Anemia, unspecified (3) CKD (chronic kidney disease) stage 3, GFR 30-59 ml/min Current visit: No Status: Acute Category: Medical Code(s): N18.3 - Chronic kidney disease, stage 3 (moderate) (4) Cardiomyopathy Current visit: No Status: Acute Category: Medical Code(s): I42.9 - Cardio myopathy, unspecified (5) Congestive heart failure Current visit: No Status: Acute Qualifiers: Heart failure type: unspecified Heart failure chronicity: acute Qualified Code(s): I50.9 - Heart failure, unspecified Category: Medical Code(s): I50.9 - Heart failure, unspecified (6) Coronary artery disease Current visit: No Status: Acute Category: Medical Code(s): I25.10 - Atherosclerotic heart disease of [place] coronary artery without angina pectoris (7) Elevated brain natriuretic peptide (BNP) level Current visit: No Status: Acute Category: Medical Code(s): R79.89 - Other specified abnormal findings of blood chemistry (8) History of CVA (cerebrovascular accident) Current visit: No Status: Acute Category: Medical Code(s): Z86.73 - Personal history of transient ischemic attack (TIA), and cerebral infarction without residual deficits (9) History of coronary angioplasty with insertion of stent Current visit: No Status: Acute Category: Surgical Code(s): Z95.5 - Presence of coronary angioplasty implant and graft (10) HTN (hypertension) Current visit: No Status: Chronic Category: Medical Code(s): I10 - Essential (primary) hypertension (11) Heart murmur Current visit: No Status: Chronic Category: Medical Code(s): R01.1 - Cardiac murmur, unspecified (12) Renal insufficiency Current visit: No Status: Chronic Category: Medical Code(s): N28.9 - Disorder of kidney and ureter, unspecified (13) Type 2 diabetes mellitus Current visit: No Status: Chronic Category: Medical Code(s): E11.9 - Type 2 diabetes mellitus without complications (14) History of recent pneumonia Current visit: Yes Status: Acute Category: Medical Code(s): Z87.01 - Personal history of pneumonia (recurrent) - Assessment and plan all Dx Assessment and Plan for all problems:: Saw patient, agree with above note. Will give Lasix now ands resume Coreg and Hyralazine. CXR to be done this morning. Patient is on supplemental oxygen now but with no low saturation noted overnight.
--- NOTE | 2020-01-15 08:14 | Progress Note ---
<Charo Avery - Last Filed: 01/15/20 08:11> Internal Medicine - PN: Subj *Date: 01/15/20 *Time: 08:11 Interval history: Patient states she feels better today. She is less short of breath. She states she has urinated quite a bit since yesterday. Her swelling has improved. Her sister is wanting a consult with podiatry to trim her nails before she is discharged. She is also concerned whether or not her PICC line will have to stay in place upon discharge. Exam Vital signs and Labs for Last 24 Hours: Temp Pulse Resp BP Pulse Ox 97.7 F 67 24 176/70 H 83 L 01/15/20 04:00 01/15/20 04:00 01/15/20 04:00 01/15/20 04:00 01/15/20 06:40 Laboratory Results - last 24 hr 01/14/20 11:37: POC Glucose 201 H 01/14/20 16:27: POC Glucose 211 H 01/14/20 21:06: POC Glucose 218 H I & O for Last 24 hours: Intake & Output 01/12/20 01/13/20 01/14/20 01/15/20 11:59 11:59 11:59 11:59 Intake Total 0 / 0 850 / 850 240 / 240 Output Total 251 / 251 1600 / 1600 2150 / 2150 Balance -251 / -251 -750 / -750 -1910 / -1910 Weight 186 lb 1.122 oz 190 lb 3 oz 182 lb 7 oz Radiology Reports for the Last 24 Hours: CXR - Interval improvement with some decrease in left basilar densities. Persistent bilateral pleural effusions. PICC line in place distal tip projecting within superior vena cava. - Constitutional no acute distress - *Routine Respiratory Exam Present: rales (bibasilar). Absent: wheezes - *Routine Cardiovascular Exam Present: RRR - *Routine Abdominal Exam Present: soft, normoactive bowel sounds. Absent: tenderness - *Routine Extremities Exam Absent: cyanosis, clubbing, edema - *Routine Skin Exam Present: warm. Absent: rash - *Routine Neurological Exam Present: alert, oriented X3 Assessment and Plan (1) Acute on chronic renal failure Current visit: No Status: Acute Category: Medical Code(s): N17.9 - Acute kidney failure, unspecified; N18.9 - Chronic kidney disease, unspecified (2) Anemia Current visit: No Status: Acute Category: Medical Code(s): D64.9 - Anemia, unspecified (3) CKD (chronic kidney disease) stage 3, GFR 30-59 ml/min Current visit: No Status: Acute Category: Medical Code(s): N18.3 - Chronic kidney disease, stage 3 (moderate) (4) Cardiomyopathy Current visit: No Status: Acute Category: Medical Code(s): I42.9 - Cardiomyopathy, unspecified (5) Congestive heart failure Current visit: No Status: Acute Qualifiers: Heart failure type: unspecified Heart failure chronicity: acute Qualified Code(s): I50.9 - Heart failure, unspecified Category: Medical Code(s): I50.9 - Heart failure, unspecified (6) Coronary artery disease Current visit: No Status: Acute Category: Medical Code(s): I25.10 - Atherosclerotic heart disease of [place] coronary artery without angina pectoris (7) Elevated brain natriuretic peptide (BNP) level Current visit: No Status: Acute Category: Medical Code(s): R79.89 - Other specified abnormal findings of blood chemistry (8) History of CVA (cerebrovascular accident) Current visit: No Status: Acute Category: Medical Code(s): Z86.73 - Personal history of transient ischemic attack (TIA), and cerebral infarction without residual deficits (9) History of coronary angioplasty with insertion of stent Current visit: No Status: Acute Category: Surgical Code(s): Z95.5 - Presence of coronary angioplasty implant and graft (10) HTN (hypertension) Current visit: No Status: Chronic Category: Medical Code(s): I10 - Essential (primary) hypertension (11) Heart murmur Current visit: No Status: Chronic Category: Medical Code(s): R01.1 - Cardiac murmur, unspecified (12) Renal insufficiency Current visit: No Status: Chronic Category: Medical Code(s): N28.9 - Disorder of kidney and ureter, unspecified (13) Type 2 diabetes mellitus Current visit: No Status: Chronic Category: Medical Code(s): E11.9 - Type 2 diabetes mellitus without complications (14) History of recent pneumonia Current visit: Yes Status: Acute Category: Medical Code(s): Z87.01 - Personal history of pneumonia (recurrent) - Assessment and plan all Dx Assessment and Plan for all problems:: Patient has lost 8 pounds since yesterday. Her breathing is better. Possible discharge home soon. Will discuss with Dr. Winkler. Nursing is going to contact podiatry to see if they can trim the patient's nails. <Rubén Winkler - Last Filed: 01/15/20 08:44> Internal Medicine - PN: Subj *Date: 01/15/20 *Time: 08:43 Exam Vital signs and Labs for Last 24 Hours: Temp Pulse Resp BP Pulse Ox 98.0 F 71 20 178/66 H 95 01/15/20 08:00 01/15/20 08:00 01/15/20 08:00 01/15/20 08:00 01/15/20 08:00 Laboratory Results - last 24 hr 01/14/20 11:37: POC Glucose 201 H 01/14/20 16:27: POC Glucose 211 H 01/14/20 21:06: POC Glucose 218 H I & O for Last 24 hours: Intake & Output 01/12/20 01/13/20 01/14/20 01/15/20 23:59 23:59 23:59 23:59 Intake Total 0 / 0 480 / 480 610 / 610 240 / 240 Output Total 551 / 951 2300 / 2850 1550 / 1550 Balance 0 / 0 -71 / -471 -1690 / -2240 -1310 / -1310 Weight 186 lb 3 oz 186 lb 1.122 oz 190 lb 3 oz 182 lb 7 oz Assessment and Plan (1) Acute on chronic renal failure Current visit: No Status: Acute Category: Medical Code(s): N17.9 - Acute kidney failure, unspecified; N18.9 - Chronic kidney disease, unspecified (2) Anemia Current visit: No Status: Acute Category: Medical Code(s): D64.9 - Anemia, unspecified (3) CKD (chronic kidney disease) stage 3, GFR 30-59 ml/min Current visit: No Status: Acute Category: Medical Code(s): N18.3 - Chronic kidney disease, stage 3 (moderate) (4) Cardiomyopathy Current visit: No Status: Acute Category: Medical Code(s): I42.9 - Cardiomyopathy, unspecified (5) Congestive heart failure Current visit: No Status: Acute Qualifiers: Heart failure type: unspecified Heart failure chronicity: acute Qualified Code(s): I50.9 - Heart failure, unspecified Category: Medical Code(s): I50.9 - Heart failure, unspecified (6) Coronary artery disease Current visit: No Status: Acute Category: Medical Code(s): I25.10 - Atherosclerotic heart disease of [place] coronary artery without angina pectoris (7) Elevated brain natriuretic peptide (BNP) level Current visit: No Status: Acute Category: Medical Code(s): R79.89 - Other specified abnormal findings of blood chemistry (8) History of CVA (cerebrovascular accident) Current visit: No Status: Acute Category: Medical Code(s): Z86.73 - Personal history of transient ischemic attack (TIA), and cerebral infarction without residual deficits (9) History of coronary angioplasty with insertion of stent Current visit: No Status: Acute Category: Surgical Code(s): Z95.5 - Presence of coronary angioplasty implant and graft (10) HTN (hypertension) Current visit: No Status: Chronic Category: Medical Code(s): I10 - Essential (primary) hypertension (11) Heart murmur Current visit: No Status: Chronic Category: Medical Code(s): R01.1 - Cardiac murmur, unspecified (12) Renal insufficiency Current visit: No Status: Chronic Category: Medical Code(s): N28.9 - Disorder of kidney and ureter, unspecified (13) Type 2 diabetes mellitus Current visit: No Status: Chronic Category: Medical Code(s): E11.9 - Type 2 diabetes mellitus without complications (14) History of recent pneumonia Current visit: Yes Status: Acute Category: Medical Code(s): Z87.01 - Per roberto history of pneumonia (recurrent) - Assessment and plan all Dx Assessment and Plan for all problems:: Saw patient, she will need supplemental oxygen, probable discharge later today.
--- NOTE | 2020-01-15 13:03 | Consult Report ---
*Admission Date: 01/12/20 *Reason for consult:: Podiatry- nail trimming *History of present illness: Ms. andres is an 84-year-old female with a history of type 2 diabetes mellitus, hypertension, hyperlipidemia, hypothyroidism, colon cancer, acute ischemic stroke, in 2017, chronic kidney disease stage III, osteoporosis, systolic congestive heart failure, coronary artery disease, coronary artery dissection, who is a resident at [facility] for ongoing rehab. Recently she has become progressively more short of breath with bilateral leg edema. With repeat labs at [place] she was noted to be anemic and was directly admitted to [facility] for diuresis and administration of packed red blood cells under acute care observation. The patient was admitted on 01/12/2020 for shortness of breath, but seems to be doing much better today. She was sleeping upon entering the room, family at the bedside. The patient and family has requested for her nails to be trimmed today before her discharge home later on today. Review of Systems - Constitutional Reports daytime sleepiness - Eyes Denies change in vision, Denies discharge - ENT Denies abnormal hearing, Denies dizziness - *Cardiovascular Denies chest pain - *Respiratory Denies shortness of breath - *Gastrointestinal Denies abdominal pain - Integumentary/Breasts Reports dry skin, Denies lesions, Denies wounds - *Neurologic Reports weakness, Denies confusion, Denies dizziness, Denies headache(s), Denies dizziness - Psychiatric Denies confusion, Denies irritability - Endocrine Denies cold intolerance [facility] History I have reviewed the patient's past medical history: Yes Medical History: Reports:: Cancer (colon), Congestive Heart Failure (Dx: Nov 2019), Coronary Artery Disease (Dx: Nov 2019), Cerebrovascular Accident, Diabetes Mellitus Type 2, Heart Murmur, Hyperlipidemia, Hypertension, Myocardial Infarction, Osteoporosis, Renal Insufficiency Denies:: Home Oxygen, Internal Pacemaker, Seizures *Have you ever received a pneumonia vaccine?: Yes *Have you received a flu vaccine this season?: No Other Medical History: Reports: Anemia, Cataracts, Hypothyroidism, Osteoporosis Laterality Cases: Right: Total Hip Replacement, Other Other Surgeries: Yes: Angioplasty (Nov 2019), Cardiac Catheterization (multiple , Nov 2019), Colonoscopy, Coronary Stent. No: Pacemaker Amputation: No - *Social History Smoking Status: Former smoker Tobacco Type: cigarettes Alcohol Intake: never Substance Use Type: denies use *Occupational Status:: retired Housing: skilled nursing Household Members: family *Travel in the last 8 weeks: None Family Hx:: Anemia, Cancer, Coronary Artery Disease, Diabetes, Hyperlipidemia, Hypertension, Kidney Disease, Stroke, Thyroid Disorder, Tuberculosis Meds Home Medications Medication Instructions Recorded Confirmed Type Levothyroxine Sodium 75 mcg PO DAILY 03/26/18 01/13/20 History [Levothyroxine 75mcg (0.075mg) Tab] Insulin NPH Hum/Reg Insulin Hm 15 unit SQ DAILY 12/07/19 01/13/20 History [Humulin 70/30 Kwikpen] Hydralazine HCl [Hydralazine HCl 25 mg PO TID 12/21/19 01/12/20 History 25mg Tablet] carvediloL [Carvedilol 6.25mg Tab] 6.25 mg PO BID 12/21/19 01/12/20 History Atorvastatin Calcium [Atorvastatin 80 mg PO HS 12/25/19 01/12/20 History 80mg Tab] Cholecalciferol (Vitamin D3) 50,000 units PO FR 01/12/20 01/13/20 History [Vitamin D3] Furosemide [Lasix 40mg tablet] 80 mg PO DAILY 01/12/20 01/12/20 History Insulin Lispro [Humalog Kwikpen 0 unit SQ ACHS 01/12/20 01/12/20 History U-100] Ipratropium/Albuterol Sulfate 3 ml IH Q6HP PRN 01/12/20 01/13/20 History [Iprat-Albut 0.5-3(2.5) mg/3 ml] Vancomycin HCl [Vancomycin 1000mg 1,000 mg IV Q48H 01/12/20 01/13/20 History Vial] Aspirin [Aspirin 81mg chewable 81 mg PO DAILY 01/13/20 01/13/20 History tab] Clopidogrel Bisulfate [Plavix 75mg 75 mg PO DAILY 01/13/20 01/13/20 History Tab] Insulin NPH Hum/Reg Insulin Hm 5 units SQ HS 01/13/20 01/13/20 History [Humulin 70/30 Kwikpen] Menthol/Zinc Oxide [Risamine 1 applicatio TP BID 01/13/20 01/13/20 History Ointment] hydrOXYzine pamoate [Vistaril 25mg 25 mg PO HS 01/13/20 01/13/20 History capsule] metOLazone [Metolazone 5mg Tab] 5 mg PO DAILY 01/13/20 01/13/20 History Allergies Allergy/AdvReac Type Severity Reaction Status Date / Time rosuvastatin [From CRESTOR] Allergy Mild Verified 05/08/19 13:48 Exam Vital signs and Labs for Last 24 Hours: Temp Pulse Resp BP Pulse Ox 98.0 F 71 20 178/66 H 95 01/15/20 08:00 01/15/20 08:00 01/15/20 08:00 01/15/20 08:00 01/15/20 08:00 Laboratory Results - last 24 hr 01/14/20 16:27: POC Glucose 211 H 01/14/20 21:06: POC Glucose 218 H 01/15/20 06:16: POC Glucose 282 H 01/15/20 11:46: POC Glucose 212 H I & O for Last 24 hours: Intake & Output 01/12/20 01/13/20 01/14/20 01/15/20 23:59 23:59 23:59 23:59 Intake Total 0 / 0 480 / 480 610 / 610 240 / 240 Output Total 551 / 551 2300 / 2300 1550 / 1550 Balance 0 / 0 -71 / -71 -1690 / -1690 -1310 / -1310 Weight 186 lb 3 oz 186 lb 1.122 oz 190 lb 3 oz 182 lb 7 oz - *Routine HEENT Exam Head: Present: normocephalic Eye: Present: normal accommodation ENT: Present: mucous membranes moist - *Routine Neck Exam Present: full ROM. Absent: JVD - Routine Chest/Breast/Axilla Exam Chest wall: Absent: tenderness - *Routine Respiratory Exam Absent: accessory muscle use, respiratory distress - *Routine Cardiovascular Exam Present: RRR. Absent: JVD - *Routine Abdominal Exam Present: soft. Absent: distended - *Routine Extremities Exam Present: edema, pulses intact, normal capillary refill. Absent: calf tenderness - *Routine Skin Exam Present: intact, dry, warm. Absent: lesions - *Routine Neurological Exam Present: oriented X3, normal speech - Routine Psychiatric Exam Present: normal affect, normal thought process, cooperative, good judgment - Detailed Lower Extremity Exam Lower leg: Bilateral swelling, Bilateral warmth Foot/Toes: Bilateral hammer toe (2nd-5th MPJ) Results - Labs Result Diagrams: 01/14/20 06:57 01/14/20 06:57 Labs: Abnormal lab results 01/14/20 01/14/20 01/15/20 Range/Units 16:27 21:06 06:16 POC Glucose 211 H 218 H 282 H (70-110) 01/15/20 Range/Units 11:46 POC Glucose 212 H (70-110) H & H 01/13/20 01/14/20 Range/Units 06:50 06:57 Hgb 9.8 L D 10.6 L (12.2-16.2) g/dL Hct 30.7 L 34.3 L (37.0-47.0) % All other labs normal. Assessment and Plan (1) Acute on chronic renal failure Current visit: No Status: Acute Category: Medical Code(s): N17.9 - Acute kidney failure, unspecified; N18.9 - Chronic kidney disease, unspecified (2) Anemia Current visit: No Status: Acute Category: Medical Code(s): D64.9 - Anemia, unspecified (3) CKD (chronic kidney disease) stage 3, GFR 30-59 ml/min Current visit: No Status: Acute Category: Medical Code(s): N18.3 - Chronic kidney disease, stage 3 (moderate) (4) Cardiomyopathy Current visit: No Status: Acute Category: Medical Code(s): I42.9 - Cardiomyopathy, unspecified (5) Congestive heart failure Current visit: No Status: Acute Qualifiers: Heart failure type: unspecified Heart failure chronicity: acute Qualified Code(s): I50.9 - Heart failure, unspecified Category: Medical Code(s): I50.9 - Heart failure, unspecified (6) Coronary artery disease Current visit: No Status: Acute Category: Medical Code(s): I25.10 - Atherosclerotic heart disease of [place] coronary artery without angina pectoris (7) Elevated brain natriuretic peptide (BNP) level Current visit: No Status: Acute Category: Medical Code(s): R79.89 - Other specified abnormal findings of blood chemistry (8) History of CVA (cerebrovascular accident) Current visit: No Status: Acute Category: Medical Code(s): Z86.73 - Personal history of transient ischemic attack (TIA), and cerebral infarction without residual deficits (9) History of coronary angioplasty with insertion of stent Current visit: No Status: Acute Category: Surgical Code(s): Z95.5 - Presence of coronary angioplasty implant and graft (10) HTN (hypertension) Current visit: No Status: Chronic Category: Medical Code(s): I10 - Essential (primary) hypertension (11) Heart murmur Current visit: No Status: Chronic Category: Medical Code(s): R01.1 - Cardiac murmur, unspecified (12) Renal insufficiency Current visit: No Status: Chronic Category: Medical Code(s): N28.9 - Disorder of kidney and ureter, unspecified (13) Type 2 diabetes mellitus Current visit: No Status: Chronic Category: Medical Code(s): E11.9 - Type 2 diabetes mellitus without complications (14) History of recent pneumonia Current visit: Yes Status: Acute Category: Medical Code(s): Z87.01 - Personal history of pneumonia (recurrent) (15) Diabetic foot Start date: 01/15/20 Current visit: Yes Status: Acute Category: Medical Code(s): E11.8 - Type 2 diabetes mellitus with unspecified complications (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 Current visit: Yes Status: Acute Category: Medical Code(s): L60.8 - Other nail disorders (17) Onychodystrophy Start date: 01/15/20 Start time: 11:30 Current visit: Yes Status: Acute Category: Medical Code(s): L60.3 - Nail dystrophy (18) Acquired hammertoe of great toes of both feet Start date: 01/15/20 Current visit: Yes Status: Acute Category: Medical Code(s): M20.41 - Other hammer toe(s) (acquired), right foot; M20.42 - Other hammer toe(s) (acquired), left foot (19) Keratosis Start date: 01/15/20 Current visit: Yes Status: Acute Category: Medical Code(s): L57.0 - Actinic keratosis (20) Decreased sensation of lower extremity Start date: 01/15/20 Current visit: Yes Status: Acute Category: Medical Code(s): R20.8 - Other disturbances of skin sensation - Assessment and plan all Dx Assessment and Plan for all problems:: Onychodystrophy/Onychoincurvatum Plan 1. Nails were debrided xs 10 utilizing manual debridement with a nail nipper. 2. A Dremel was then used to take down the thickness of all toenails. 3. Patient tolerated the procedure well. 4. Recommend the use of zara board to file nails down and keep thinner. 5. Follow up in 3 months or as needed. 6. Patient should call me sooner if any questions or concerns arise. KERATOSIS: Educated patient about dry skin and the need to keep area clean. Discussed proper foot hygiene. I explained that severely thickened dry skin, may cause the skin to crack and fissure. Deep fissuring could lead to bacterial and/or fungus infection. No SOI currently. Diabetic foot Patient will continue to come to Podiatry for routine diabetic foot care exams every 10-12 weeks to be evaluated for any changes in foot care. 1. Nail Trim 2. Foot exam 3. Note any neuro or vascular changes DM EDUCATION: A comprehensive diabetic foot examination was performed today. We discussed the systemic risks of diabetes and the importance of proper glucose control. We discussed the dangers of neuropathy or excessive pain. Patient was given a risk stratification of [1] and is recommend to follow up every [3] months. We discussed areas of high pressure on the patients foot as well as the risks and offloading solutions. We reviewed the proper foot care instructions such as: checking feet on a daily basis, keeping good hygiene, drying well between all toes, using lotion on dry skin, and wearing some form of foot protection at all times. We also discussed what to look for in areas of inflammation, ``hot spots, and ulcer formation. We did review patients current medications and discussed the importance of taking all medications as prescribed. We also discussed use of appropriate therapeutic footwear, inserts, and orthotics. Diabetic shoes are necessary in order to prevent rubbing and irritation on the deformities. This in return will help prevent ulceration formation, amputation, and infection. Decreased sensation lower extremities bilaterally Plan of treatment of diabetic peripheral neuropathy centers on control of the patients blood sugar level. In addition, various options are used to treat the painful symptoms. Medications are available to help relieve specific symptoms, such as tingling or burning. Sometimes a combination of different medications is used. In some cases, the patient may also undergo physical therapy to help reduce balance problems or other symptoms. Prevention: The patient plays a vital role in minimizing the risk of developing diabetic peripheral neuropathy and in preventing its possible consequences. Some important preventive measures include: Keep blood sugar levels under control. Wear well-fitting shoes to avoid getting sores. Inspect your feet every day. If you notice any cuts, redness, blisters or swelling, see your foot and ankle surgeon right away. This can prevent problems from becoming worse.Visit your foot and ankle surgeon on a regular basis for an examination to help prevent the foot complications of diabetes. Have periodic visits with your primary care physician or rn outpatient surgery. The foot and ankle surgeon works together with these and other providers to prevent and treat complications from diabetes. Plan 1. Patients nails was trimmed 1-10 today. 2. We discussed getting established with our Podiatry office for Routine Diabetic foot care; nail trimming every 10-12 weeks. 3. We discussed with the patient and family about getting her Diabetic shoes. 4. Our office will call back upstairs to speak to patient and family about getting her follow up appointment set up for her her next DFC; nail trim 10-12 weeks from today.
--- NOTE | 2020-01-16 08:45 | Discharge Summary ---
General - General Admission date:: 01/12/20 Discharge date: 01/15/20 HPI HPI: Ms. Bey is an 84-year-old female with a history of type 2 diabetes mellitus, hypertension, hyperlipidemia, hypothyroidism, colon cancer, acute ischemic stroke, in 2017, chronic kidney disease stage III, osteoporosis, systolic congestive heart failure, coronary artery disease, coronary artery dissection, [place] [facility] [place]. Recently she has become progressively more short of breath with bilateral leg edema. With repeat labs at [facility] she was noted to be anemic and was directly admitted to [facility] for diuresis and administration of packed red blood cells under acute care observation. Hospital Course Hospital Course: The patient slept well and received packed red blood cells. She feels better and was able to eat. She diuresed well and denied any chest pain or shortness of breath. Her H&H improved. She was doing well up until around 3 AM on the orning of 01/14/2020 when she became more short of breath. She had been off of her oxygen, but it had to be restarted. Her blood pressure was elevated. She had a CXR showing interval improvement with some decrease in the left basilar densities. There were persistent bilateral pleural effusions. She was given more Lasix and her Coreg and hydralazine were restarted. By 01/15/2020, the patient was feeling much better and less short of breath. She had diuresed well. Her H&H was stable. She was anxious to be discharged home. Podiatry was consulted to trim her nails before discharge. She was stable to be discharged home with supplemental oxygen. Objective Vital signs: Temp Pulse Resp BP Pulse Ox 98.0 F 71 20 178/66 H 95 01/15/20 08:00 01/15/20 08:00 01/15/20 08:00 01/15/20 08:00 01/15/20 08:00 Results Labs on day of discharge: Labs from last 24 hours 01/15/20 01/15/20 11:46 06:16 POC Glucose 212 H 282 H DS: Diagnosis - Discharge Diagnosis (1) Acute on chronic renal failure Status: Acute (2) Anemia Status: Acute (3) CKD (chronic kidney disease) stage 3, GFR 30-59 ml/min Status: Acute (4) Cardiomyopathy Status: Acute (5) Congestive heart failure Status: Acute (6) Coronary artery disease Status: Acute (7) Elevated brain natriuretic peptide (BNP) level Status: Acute (8) History of CVA (cerebrovascular accident) Status: Acute (9) History of coronary angioplasty with insertion of stent Status: Acute (10) HTN (hypertension) Status: Chronic (11) Heart murmur Status: Chronic (12) Renal insufficiency Status: Chronic (13) Type 2 diabetes mellitus Status: Chronic (14) History of recent pneumonia Status: Acute (15) Diabetic foot Status: Acute (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 Status: Acute (17) Onychodystrophy Status: Acute (18) Acquired hammertoe of great toes of both feet Status: Acute (19) Keratosis Status: Acute (20) Decreased sensation of lower extremity Status: Acute Discharge Plan - Patient Discharge Instructions ACTIVITY: Continue current activity DIET: continue same diet Additional Instructions: Patient needs home health for nursing and physical therapy. She needs supplemental oxygen at 2L/min per [place] and a hospital bed. Patient Instructions: Anemia, Chronic Renal Failure, DI for Oxygen Therapy -- Adult, Low-Sodium Diet - Follow up Plan Follow up with: Rubén Winkler MD [Primary Care Provider] - 01/22/20 Disposition: Home, Self-Custodial Medications: Home Medications Medication Instructions Recorded Confirmed Type Levothyroxine Sodium 75 mcg PO DAILY 03/26/18 01/13/20 History [Levothyroxine 75mcg (0.075mg) Tab] Insulin NPH Hum/Reg Insulin Hm 15 unit SQ DAILY 12/07/19 01/13/20 History [Humulin 70/30 Kwikpen] Hydralazine HCl [Hydralazine HCl 25 mg PO TID 12/21/19 01/12/20 History 25mg Tablet] carvediloL [Carvedilol 6.25mg Tab] 6.25 mg PO BID 12/21/19 01/12/20 History Atorvastatin Calcium [Atorvastatin 80 mg PO HS 12/25/19 01/12/20 History 80mg Tab] Cholecalciferol (Vitamin D3) 50,000 units PO FR 01/12/20 01/13/20 History [Vitamin D3 50,000 unit Cap] Insulin Lispro [Humalog Kwikpen 0 unit SQ ACHS 01/12/20 01/12/20 History U-100] Aspirin [Aspirin 81mg chewable 81 mg PO DAILY 01/13/20 01/13/20 History tab] Clopidogrel Bisulfate [Plavix 75mg 75 mg PO DAILY 01/13/20 01/13/20 History Tab] Insulin NPH Hum/Reg Insulin Hm 5 units SQ HS 01/13/20 01/13/20 History [Humulin 70/30 Kwikpen] Menthol/Zinc Oxide [Risamine 1 applicatio TP BID 01/13/20 01/13/20 History Ointment] hydrOXYzine pamoate [Vistaril 25mg 25 mg PO HS 01/13/20 01/13/20 History capsule] Furosemide [Lasix 40mg tablet] 80 mg PO DAILY #60 tab 01/15/20 Rx metOLazone [Metolazone 5mg Tab] 5 mg PO DAILY #30 tab 01/15/20 Rx Prescriptions/Medication Reconciliation: Continued Levothyroxine Sodium [Levothyroxine 75mcg (0.075mg) Tab] 75 mcg PO DAILY carvediloL [Carvedilol 6.25mg Tab] 6.25 mg PO BID Clopidogrel Bisulfate [Plavix 75mg Tab] 75 mg PO DAILY hydrOXYzine pamoate [Vistaril 25mg capsule] 25 mg PO HS Aspirin [Aspirin 81mg chewable tab] 81 mg PO DAILY Insulin NPH Hum/Reg Insulin Hm [Humulin 70/30 Kwikpen] 5 units SQ HS metOLazone [Metolazone 5mg Tab] 5 mg PO DAILY #30 tab Insulin NPH Hum/Reg Insulin Hm [Humulin 70/30 Kwikpen] 15 unit SQ DAILY Hydralazine HCl [Hydralazine HCl 25mg Tablet] 25 mg PO TID Atorvastatin Calcium [Atorvastatin 80mg Tab] 80 mg PO HS Cholecalciferol (Vitamin D3) [Vitamin D3 50,000 unit Cap] 50,000 units PO FR Insulin Lispro [Humalog Kwikpen U-100] 0 unit SQ ACHS Menthol/Zinc Oxide [Risamine Ointment] 1 applicatio TP BID Furosemide [Lasix 40mg tablet] 80 mg PO DAILY #60 tab Discontinued Vancomycin HCl [Vancomycin 1000mg Vial] 1,000 mg IV Q48H Ipratropium/Albuterol Sulfate [Iprat-Albut 0.5-3(2.5) mg/3 ml] 3 ml IH Q6HP PRN PRN Reason: Shortness Of Breath - Problem Reconciliation Problems Reviewed?: Yes
== END 2020-01-15 15:10 | disposition home or self-care (01) ==
LOC: 2ND
PROVIDERS: ADMIT Family Medicine; ATTEND Family Medicine
CPT/HCPCS: 36415; 71020; 71046; 80048; 82962; 85025; 86850; G0378; P9016